=== PATIENT | male | born 1985 | race Caucasian/White ===

== ENCOUNTER → 2018-05-18 16:17 | Outpatient (CLI) | payer MEDICAID, SELFPAY ==
--- NOTE | 2018-05-18 17:02 | US_ITS ---
STUDY: SCROTUM ULTRASOUND REASON FOR EXAM: Male, 32 years old. Testicular pain TECHNIQUE: Ultrasound evaluation of the scrotum was performed with color Doppler and static manuel-scale imaging. COMPARISON: None. FINDINGS: RIGHT TESTICLE INTRATESTICULAR: There is a normal size of the right testicle. The right testicle measures 4.4 x 2.5 x 1.9 cm. There is a homogenous echotexture. There is normal arterial and normal venous vascularity. There is no demonstrated right testicular mass or cyst. EXTRATESTICULAR: The epididymis is normal in size. The epididymis head measures 0.9 x 0.8 cm. There is normal vascularity of the epididymis. There is a 2 mm epididymal cyst. There is a small hydrocele. There is no demonstrated varicocele. There is no demonstrated extratesticular mass or cyst. LEFT TESTICLE INTRATESTICULAR: There is a normal size of the left testicle. The left testicle measures 4.6 x 2.7 x 2.1 cm. There is a homogenous echotexture. There is normal arterial and normal venous vascularity. There is no demonstrated left testicular mass or cyst. EXTRATESTICULAR: The epididymis is normal in size. The epididymis head measures 1.1 x 0.7 cm. There is normal vascularity of the epididymis. There is no demonstrated epididymal cystic structure. There is a moderate hydrocele. There is mild varicocele. There is no demonstrated extratesticular mass or cyst. US/Testicular with Arterial Flow IMPRESSION: Normal bilateral testicles. Right epididymal cyst. Mild left varicocele. Small right hydrocele. Moderate left hydrocele. Electronically Signed: Andreas Reynoso DO at 23:31 EDT Tel [phone], Service support ,
== END ==
PROVIDERS: Family Provider Student in an Organized Health Care Education/Training Program; PCP Student in an Organized Health Care Education/Training Program; Visit Provider Student in an Organized Health Care Education/Training Program
DX: N50.819 Testicular pain, unspecified (principal)
CPT/HCPCS: 76870; 93976

== ENCOUNTER 2018-05-26 20:42 | Emergency (ER) | payer MEDICAID, SELFPAY ==
[2018-05-26 20:43] VITALS: BP 128/77; PULSE 85; RESP 14; TEMP 36.6; O2SAT 98; BMI 31.6
[2018-05-26 22:43] LABS: Mucous, Urine 0 SEEN /hpf (<or=2+); Red Blood Cells-Urine 0 SEEN /hpf (0-5); White Blood Cells 0 SEEN /hpf (0-5)
[2018-05-26 22:44] LABS: Color, Urine Yellow (Yellow); Glucose, Dipstick Normal (Normal); Ketone-Dipstick Negative (Negative); Leukocyte Esterase-Dipstick 25 /ul (Negative); Nitrite-Dipstick Negative (Negative); Occult Blood-Urine Negative /ul (Negative); Protein-Dipstick Negative (Negative); Urine Bilirubin Dipstick Negative (Negative); Urine Clarity Clear (Clear); Urine Urobilinogen 1 mg/dl (Normal); Urine pH 6.5 (5.0 - 8.0)
[2018-05-26] MEDS: HYDROcodone Bitartrate/Apap 5/325 Tablet PO (22:45)
[2018-05-26 22:57] LABS: Bacteria 1+ /hpf (None Seen); Squamous Epithelial Cells - UA 0-5 SEEN /hpf (0-5)
--- NOTE | 2018-05-26 23:30 | ED.DCSUM_ITS ---
- ER Visit Summary Date of Service: 05/26/18 Chief Complaint: Testicle pain History of Present Illness: The patient is a 32 M bilateral testicle pain which has been an ongoing issue for a couple months. It has been getting worse. He had a recent ultrasound which showed hydrocele. He was referred to urology, but he presents today because his pain has been increasing. Denies any discharge. Denies any dysuria or hematuria. Denies fevers. Denies trauma. Physical Examination: Afebrile and vital signs unremarkable. Alert and oriented. No acute distress. Abdomen soft and nontender. Diffuse testicular tenderness to palpation bilaterally with no swelling or masses noted. Test Results: Urinalysis unremarkable. Cultures pending. Emergency Department Course and Treatment: Patient received pain medication. While awaiting results. I reviewed his old imaging. He has hydroceles but no masses. There is nothing to suggest torsion. The patient has a bilateral orchitis. He was treated with Rocephin and doxycycline. He will follow-up with urology. Return for any new or worsening issues. Treatment Plan: Rocephin IM 1 time and doxycycline p.o. for 10 days Disposition: Discharged Impression: 1. Bilateral orchitis This note was generated with [employer] dictation software. It may contain incorrect words, spelling, and punctuation that were not noted in review of the chart prior to signing ED Disposition - Plan for ED Patient: Chief Complaint: Male Pain/Injury Referrals: Redd Baeza DO [Primary Care Provider] -
--- NOTE | 2018-05-26 23:30 | ED.DEP ---
ED Disposition - Plan for ED Patient: Chief Complaint: Male Pain/Injury Instructions: ED Orchitis Prescriptions: Oxycodone HCl/Acetaminophen [Percocet 5/325] 1 tab PO Q6H PRN PRN 3 Days #12 tab PRN Reason: Pain Doxycycline Monohydrate 100 mg PO BID #20 cap Additional Instructions: follow up with your urologist
[2018-05-26] MEDS: Doxycycline 100 MG CAPSULE PO (23:47)
[2018-05-27] MEDS: Ceftriaxone 500 MG Vial 250 MG IM (00:02)
[2018-05-27 00:07] VITALS: BP 128/75; PULSE 65; RESP 17; O2SAT 99
== END 2018-05-27 00:18 | disposition home or self-care (01) ==
PROVIDERS: Emergency Provider Emergency Medicine; Family Provider Student in an Organized Health Care Education/Training Program; PCP Student in an Organized Health Care Education/Training Program
DX: N45.2 Orchitis (principal); F32.9 Major depressive disorder, single episode, unspecified; F41.9 Anxiety disorder, unspecified; F17.210 Nicotine dependence, cigarettes, uncomplicated; Z79.899 Other long term (current) drug therapy
CPT/HCPCS: 81001; 87086; 87088; 96372; 99283

== ENCOUNTER 2018-09-21 17:18 | Emergency (ER) | payer MEDICAID, SELFPAY ==
[2018-09-21 17:20] VITALS: BP 137/83; PULSE 82; RESP 17; TEMP 37; O2SAT 98; BMI 27.4
--- NOTE | 2018-09-21 17:49 | ED.RN ---
Pt verbalizes SI with auditory hallucinations. Suicide precautions initiated at 1720. sitter at bedside.
--- NOTE | 2018-09-21 17:50 | CM.ED ---
SOCIAL WORK NOTE CASE DISCUSSED WITH DR. ODEN. [facility] TO EVALUATE. PT WITH AUDITORY HALLUCINATIONS AND SUICIDAL IDEATION. RACHAEL SOL, SOFTWARE QA MANAGER, LINE LOCATOR.
--- NOTE | 2018-09-21 17:53 | CT_ITS ---
STUDY: CT BRAIN WITHOUT CONTRAST REASON FOR EXAM: Male, 33 years old. Altered mental status RADIATION DOSAGE (If Supplied By Facility): CTDIvol = ( 44.99 ) mGy, DLP = ( 779.24 ) mGycm TECHNIQUE: Transaxial CT imaging of the brain was performed without administration of intravenous contrast material. Individualized dose optimization techniques were used for this CT. COMPARISON: March 17, 2017 FINDINGS: Normal soft tissue structures. Normal calvarium. Normal size ventricles and extra-axial spaces for the patient's age. Normal white matter tracts of the cerebral hemispheres. Normal basal ganglia and thalami. Normal brainstem. Normal cerebellum. There is no intracranial hemorrhage. There are no findings of an acute ischemic infarction. Normal visualized paranasal sinuses. CT/Brain/Head without Contrast IMPRESSION: Normal unenhanced CT scan of the brain. Electronically Signed: Andreas Reynoso DO at 18:31 EST Tel [phone], Service support ,
--- NOTE | 2018-09-21 18:13 | ED.VISSUMM ---
- ER Visit Summary Date of Service: 09/21/18 Chief Complaint: Hallucinations, suicidal ideation History of Present Illness: The patient is a 33 M presenting with suicidal ideation and hallucinations. He states he went to his primary care physician today to have his medications refilled. He states when he was at the office he started telling the provider everything that has been going on in his life. He states that he has been hearing voices which are telling him to hurt himself. He states that they swear at him. He states sometimes he will wake up in the middle the night and start banging his head on the floor. He states he is afraid to be alone. He has a history of past suicide attempt. He does not have a current suicide plan. He admits to marijuana use and occasional alcohol use. Physical Examination: Vitals are stable. Patient is afebrile. Alert no acute distress. HEENT exam is unremarkable. Neck is supple. Lungs are clear and equal bilaterally. Heart is regular rate and rhythm. Abdomen is soft nontender nondistended. Extremities are unremarkable. Skin is warm and dry. No focal neurologic deficit. Poor eye contact. Remainder of exam is unremarkable. Emergency Department Course and Treatment: CBC shows white count 12.0. Chemistries unremarkable. Tox positive for THC. Alcohol negative. CT head shows no acute process. Will discuss with the counseling center for evaluation. Disposition: Per counseling center Impression: Auditory hallucinations, suicidal ideation This note was generated with [employer] dictation software. It may contain incorrect words, spelling, and punctuation that were not noted in review of the chart prior to signing ED Disposition - Plan for ED Patient: Chief Complaint: Suicidal Referrals: Redd Baeza DO [Primary Care Provider] -
[2018-09-21 18:19] VITALS: RESP 16
[2018-09-21 18:25] LABS: Absolute Lymphocyte Count 3.65 X10^3/ul (0.83-4.51); Absolute Neutrophil Count 7.1 X10^3/uL (2.0-7.7); Basophil# 0.05 X10^3/uL; Basophil% 0.4 % (0-1); Eosinophils% 3.3 % (0-5); Hematocrit 49.8 % (40-54); Hemoglobin 16.6 g/dl (13.0-16.5); Lymphocyte # 3.65 X10^3/ul (4.0); Lymphocyte % 30.5 % (19-41); Mean Corp Hgb Conc 33.3 g/gl (32-36); Mean Corpuscular Hgb 30.6 pg (27.0-32.0); Mean Corpuscular Volume 91.7 fL (80-94); Mean Platelet Vol. 10.8 fl (6.2-12.0); Monocyte# 0.76 X10^3/uL; Monocyte% 6.4 % (0-10); Neutrophil # 7.08 X10^3/uL (2.7-7.7); Neutrophil % 59.2 % (47-70); Platelet Count 252 K/mm3 (150-450); RBC Distribution Width CV 13.2 % (11.6-14.6); RBC Distribution Width SD 43.7 fl (35.1-43.9); Red Blood Count 5.43 M/mm3 (4.6-6.2)
[2018-09-21 18:26] LABS: POSITIVE COUNT NO; POSITIVE DIFFERENTIAL NO; POSITIVE MORPHOLOGY NO
[2018-09-21 18:57] LABS: Anion Gap 11 (5-15); BUN 8 mg/dL (7-18); BUN/Creat Ratio 8.9 RATIO (10-20); Calcium,Total 8.9 mg/dL (8.5-10.1); Chloride 103 mmol/L (98-107); EST Glomerular Filtration Rate 103 mL/min (>60); Est Glom Filt Rate - Afr Amer 125 mL/min (>60); Estimated Creatinine Clearance 124.34 ml/min; Glucose 81 mg/dL (74-106); Potassium 3.7 mmol/L (3.5-5.1); Sodium Level 140 mmol/L (136-145)
[2018-09-21 18:59] LABS: Amphetamine Urine VISTA NEGATIVE (<1000 ng/mL); Barbiturate Urine VISTA NEGATIVE (< 200 ng/mL); Benzodiazepine Urine VISTA NEGATIVE (< 200 ng/mL); Cocaine Urine VISTA NEGATIVE (< 300 ng/mL); Ecstacy Urine VISTA NEGATIVE (< 500 ng/mL); Methadone Urine VISTA NEGATIVE (< 300 ng/mL); PCP Urine VISTA NEGATIVE (< 25 ng/mL); THC Urine VISTA POSITIVE (< 50 ng/mL); Vista UDS pH Range 5
[2018-09-21 19:00] VITALS: PULSE 74; RESP 16; O2SAT 99
[2018-09-21 19:03] LABS: Alcohol, Blood (Medical)-Serum < 3.0 mg/dL
--- NOTE | 2018-09-21 19:18 | ED.RN ---
CALLED CRISIS TO SEE THIS PT, SEVERIANO IS IN THE AREA
[2018-09-21] MEDS: Ondansetron ODT 4 MG Tablet PO (20:21)
--- NOTE | 2018-09-21 20:55 | ED.RN ---
CALLED [facility] TO CHECK A STATUS OF ARRIVAL, NO ETA GIVEN, HOWEVER WE ARE STILL ON THE LIST.
[2018-09-21 21:00] VITALS: BP 126/71; PULSE 66; RESP 14; O2SAT 99
--- NOTE | 2018-09-21 21:16 | ED.RN ---
KAILYN WILSON CALLED IN, HE HAS A FEW THINGS TO DO THEN WILL BE IN.
[2018-09-21 22:00] VITALS: RESP 18
--- NOTE | 2018-09-21 22:49 | ED.RN ---
KAILYN WILSON CALLED, A COMMUNICATION PROBLEM IN THEIR OFFICE CAUSED HIM TO GO TO ANOTHER FACILITY EVEN THOUGH THIS PT WAS FIRST TO BE SEEN, HE IS UNAWARE OF WHEN HE WILL GET HERE TO SEE THIS PT.
[2018-09-21 23:00] VITALS: PULSE 66; RESP 18; O2SAT 99
[2018-09-22] VITALS (8 sets, daily range): BP systolic 114–122; BP diastolic 73–79; PULSE 61–85; RESP 14–16; O2SAT 97–98
--- NOTE | 2018-09-22 07:07 | NURSING ---
CALLED [facility]. ETA IS [phone]
== END 2018-09-22 08:37 ==
LOC: ED 17:55
PROVIDERS: Emergency Provider Emergency Medicine; Family Provider Student in an Organized Health Care Education/Training Program; PCP Student in an Organized Health Care Education/Training Program
DX: R45.851 Suicidal ideations (principal); R44.0 Auditory hallucinations; F41.9 Anxiety disorder, unspecified; F32.9 Major depressive disorder, single episode, unspecified; Z79.899 Other long term (current) drug therapy; Z72.0 Tobacco use
CPT/HCPCS: 70450; 80048; 80307; 80320; 85025; 99285; G0480

== ENCOUNTER 2018-12-19 17:45 | Emergency (ER) | payer MEDICAID, SELFPAY ==
[2018-12-19 17:47] VITALS: BP 133/97; PULSE 68; RESP 17; TEMP 36.6; O2SAT 98; BMI 26.2
[2018-12-19 17:51] VITALS: TEMP 36.6
[2018-12-19] MEDS: HYDROcodone Bitartrate/Apap 5/325 Tablet PO (19:49)
[2018-12-19] MEDS: Clindamycin HCl 150 MG Capsule 300 MG PO (19:49)
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
--- NOTE | 2018-12-19 20:20 | ED.RN ---
DISCHARGE INSTRUCTIONS GIVEN TO AND REVIEWED WITH PATIENT, PATIENT DENIES QUESTIONS OR CONCERNS AND VOICES UNDERSTANDING OF DISCHARGE INSTRUCTIONS. PT AMBULATES OUT OF ROOM WITHOUT ISSUE.
== END 2018-12-19 20:21 | disposition home or self-care (01) ==
PROVIDERS: Emergency Provider Emergency Medicine; Family Provider Student in an Organized Health Care Education/Training Program; PCP Student in an Organized Health Care Education/Training Program
DX: S00.431A Contusion of right ear, initial encounter (principal); Z87.891 Personal history of nicotine dependence; W22.01XA Walked into wall, initial encounter; Y93.89 Activity, other specified; Y92.89 Other specified places as the place of occurrence of the external cause; Y99.8 Other external cause status
CPT/HCPCS: 69000; 99283

== ENCOUNTER 2018-12-25 16:53 | Emergency (ER) | payer MEDICAID, SELFPAY ==
[2018-12-25 16:54] VITALS: BP 130/94; PULSE 114; RESP 19; TEMP 36.4; O2SAT 97; BMI 27.4
--- NOTE | 2018-12-25 17:34 | ED.VISSUMM ---
- ER Visit Summary Date of Service: 12/25/18 Chief Complaint: Right ear pain History of Present Illness: The patient is a 33 M with right ear pain for about 3 weeks. He was seen here earlier in the week and had drainage but it reaccumulated. As I read the note, an 18-gauge was used to aspirate and the ear went back to normal, patient did take the pressure dressing off rather soon, he came in today because he got worse. Physical Examination: Auricle is quite swollen, no pallor. No signs of cellulitis. Emergency Department Course and Treatment: 1% lidocaine was used, I used a 15 blade, after which I made an ellipse and left the wound open. I drained quite a bit of clots. The ear regressed back to normal. Patient will be placed on antibiotics Disposition: Discharge stable condition Impression: Auricle hematoma This note was generated with [employer] dictation software. It may contain incorrect words, spelling, and punctuation that were not noted in review of the chart prior to signing ED Disposition - Plan for ED Patient: Disposition: Home or Assisted Living Instructions: ED Hematoma Prescriptions: Hydrocodone Bitart/Apap 5-325 [[place] 5MG-325MG] 1 tab PO Q4H PRN PRN 2 Days #10 tab PRN Reason: Pain Clindamycin [Cleocin] 150 mg PO TID #15 cap Referrals: Redd Baeza DO [Primary Care Provider] - 2 Days
--- NOTE | 2018-12-25 17:39 | ED.DCSUM_ITS ---
- ER Visit Summary Date of Service: 12/25/18 Chief Complaint: Right ear pain History of Present Illness: The patient is a 33 M with right ear pain for about 3 weeks. He was seen here earlier in the week and had drainage but it reaccumulated. As I read the note, an 18-gauge was used to aspirate and the ear went back to normal, patient did take the pressure dressing off rather soon, he came in today because he got worse. Physical Examination: Auricle is quite swollen, no pallor. No signs of cellulitis. Emergency Department Course and Treatment: 1% lidocaine was used, I used a 15 blade, after which I made an ellipse and left the wound open. I drained quite a bit of clots. The ear regressed back to normal. Patient will be placed on antibiotics Disposition: Discharge stable condition Impression: Auricle hematoma This note was generated with [employer] dictation software. It may contain incorrect words, spelling, and punctuation that were not noted in review of the chart prior to signing ED Disposition - Plan for ED Patient: Disposition: Home or Assisted Living Instructions: ED Hematoma Prescriptions: Hydrocodone Bitart/Apap 5-325 [[place] 5MG-325MG] 1 tab PO Q4H PRN PRN 2 Days #10 tab PRN Reason: Pain Clindamycin [Cleocin] 150 mg PO TID #15 cap Referrals: Redd Baeza DO [Primary Care Provider] - 2 Days
[2018-12-25] MEDS: HYDROcodone Bitartrate/Apap 5/325 Tablet PO (17:52)
[2018-12-25] MEDS: Clindamycin HCl 150 MG Capsule 300 MG PO (17:52)
[2018-12-25 17:53] VITALS: PULSE 105; RESP 17; O2SAT 95
== END 2018-12-25 17:55 | disposition home or self-care (01) ==
PROVIDERS: Emergency Provider Emergency Medicine; Family Provider Student in an Organized Health Care Education/Training Program; PCP Student in an Organized Health Care Education/Training Program
DX: S00.431A Contusion of right ear, initial encounter (principal); F32.9 Major depressive disorder, single episode, unspecified; Z79.899 Other long term (current) drug therapy; X58.XXXA Exposure to other specified factors, initial encounter; Y93.9 Activity, unspecified; Y92.89 Other specified places as the place of occurrence of the external cause; Y99.8 Other external cause status
CPT/HCPCS: 69000; 99283

== ENCOUNTER 2018-12-31 10:16 | Emergency (ER) | payer MEDICAID, SELFPAY ==
[2018-12-31 10:19] VITALS: BP 123/80; PULSE 64; RESP 14; TEMP 36.4; O2SAT 98; BMI 25.9
--- NOTE | 2018-12-31 10:55 | ED.VIS.GEN ---
History of Present Illness Chief Complaint: Anxiety Detail of Chief Complaint: Multiple issues read narrative Informant: Patient Onset: Weeks - 1.5 Context: - - Uncertain Timing: Continuous, Waxes and wanes Quality: Something is wrong, no appetite, no energy Location: Residents Current Severity: Mild Worsened by: Patient reports she does not feel safe in his apartment with his roommate Relieved by: Nothing Associated Symptoms: Symptoms of depression without suicidal ideation Narrative: Patient is a 33-year-old male who was seen recently by me for a traumatic hematomas right ear. The hematoma was aspirated. Patient had a appropriate pressure dressing and refer to ENT. He states he never called and never followed up. He states he has been lying on his sulfa. Has the financial means for food however he has no desire to get food or make food for himself. He now states he does not feel safe with his roommate. He is unable to be more specific. He denied suicidal thoughts. He denies homicidal thoughts. He repeated he is not sure what is wrong and not sure what to do. Past Medical History - Allergies and Home Meds Allergies/Adverse Reactions: Allergies No Known Allergies Allergy (Verified 12/25/18 16:56) Primary Care Physician: Redd Baeza DO [Primary Care Provider] - Prior records reviewed: Yes Surgical History: no surgical history Lives: Roommate Smoking Status: Never smoker Alcohol: None Review of Systems General: Reports: Malaise Eyes: Denies: Visual changes - bilaterally, Blurred Vision - bilaterally, Diplopia ENT: Denies: Rhinorrhea, Sore throat Cardiovascular: Denies: Chest pain, Palpitations Respiratory: Denies: Dyspnea, Cough, Dyspnea on exertion Gastrointestinal: Denies: Abdominal pain, Nausea, Vomiting, Diarrhea, Melena, Hematochezia Genitourinary: Denies: Dysuria, Hematuria, Frequency Musculoskeletal: Denies: Myalgias, Arthralgias, Neck pain, Back pain, Extremity Pain Skin: Denies: Rash, Wounds Neurological: Denies: Headache, Weakness, Numbness Psych: Reports: Depression, Anxiety. Denies: Suicidal thoughts, Suicidal ideations Hematologic: Denies: Easy bruising, Easy bleeding Allergy: Denies: Uticaria, Swelling of the mouth Physical Exam Vital Signs/Narrative: Vital Signs Temp Pulse Resp BP Pulse Ox 12/31/18 10:19 97.6 F L 64 14 123/80 H 98 Inital Vital Signs reviewed: Yes General: Well nourished, Well developed, No Acute Distress Head: Normocephalic, Atraumatic, - Eyes: Perrl, EOMI. Negative for: Pale conjunctiva, Scleral icterus ENT: Moist mucous membranes, No rhinorrhea, - - There is a large hematoma right ear. There is no evidence of infection. Neck: Supple, Nontender, No lymphadenopathy, No JVD, - Cardiovascular: Regular rate, Regular rhythm, No murmurs, Normal S1, Normal S2 Respiratory: No distress, CTA bilaterally, Chest nontender Abdomen: Soft, Nontender, Nondistended, Normal bowel sounds, No masses Back: Nontender, Normal Inspection. Negative for: CVA tenderness Extremities: Nontender, No edema Skin: Normal color, No rash Neurological: Alert, Oriented x3, Cranial nerves II-XII grossly intact, Normal Strength, Normal Sensation Psychological: Depressed - Poverty of speech, slow psychomotor skills, problems with sleep. Diagnostic/Tx/Re-eval Laboratory Results 12/31/18 12/31/18 12/31/18 11:30 11:30 11:30 WBC 7.9 RBC 5.23 Hgb 15.9 Hct 47.6 MCV 91.0 MCH 30.4 MCHC 33.4 RDW 13.3 RDW Differential 43.9 Plt Count 257 MPV 11.0 Immature Gran % (Auto) 0.100 Neut % (Auto) 59.9 Lymph % (Auto) 26.4 [place] % (Auto) 6.9 Eos % (Auto) 6.2 H Baso % (Auto) 0.5 Absolute Neuts (auto) 4.7 Absolute Lymphs (auto) 2.07 Total Counted Not Reportable Sodium 142 Potassium 4.7 Chloride 107 Carbon Dioxide 31.0 Anion Gap 4 L BUN 12 Creatinine 0.94 Estim Creat Clear Calc 119.05 Est GFR (MDRD) Af Amer 119 Est GFR (MDRD) Non-Af 98 BUN/Creatinine Ratio 12.8 Glucose 84 Calcium 9.0 Total Bilirubin 0.60 AST 17 ALT 37 Alkaline Phosphatase 131 H Total Protein 7.5 Albumin 3.9 Globulin 3.6 Albumin/Globulin Ratio 1.1 Urine Opiates Screen Urine Methadone Screen Ur Barbiturates Screen Ur Phencyclidine Scrn Ur Amphetamines Screen U Methamphetamin-MDMA U Benzodiazepines Scrn Urine Cocaine Screen U Cannabinoids Screen Ur Drug Screen Comment Ethyl Alcohol 9.0 12/31/18 13:10 WBC RBC Hgb Hct MCV MCH MCHC RDW RDW Differential Plt Count MPV Immature Gran % (Auto) Neut % (Auto) Lymph % (Auto) [place] % (Auto) Eos % (Auto) Baso % (Auto) Absolute Neuts (auto) Absolute Lymphs (auto) Total Counted Sodium Potassium Chloride Carbon Dioxide Anion Gap BUN Creatinine Estim Creat Clear Calc Est GFR (MDRD) Af Amer Est GFR (MDRD) Non-Af BUN/Creatinine Ratio Glucose Calcium Total Bilirubin AST ALT Alkaline Phosphatase Total Protein Albumin Globulin Albumin/Globulin Ratio Urine Opiates Screen NEGATIVE Urine Methadone Screen NEGATIVE Ur Barbiturates Screen NEGATIVE Ur Phencyclidine Scrn NEGATIVE Ur Amphetamines Screen NEGATIVE U Methamphetamin-MDMA NEGATIVE U Benzodiazepines Scrn NEGATIVE Urine Cocaine Screen NEGATIVE U Cannabinoids Screen POSITIVE H Ur Drug Screen Comment Ethyl Alcohol - Medical Decision Making Case management was consulted. Because he reports little to no p.o. intake in 10 days and clinically appears dehydrated will obtain baseline blood work to assess renal function, electrolytes, H&H. Quita from case management spoke to person and for me she is concerned that he is having acute psychosis. Agree there is something wrong. This is a marked change from when I saw him and drained his right ear hematoma. We will perform appropriate test for psychiatric clearance. Will notify mental health they will need to see patient. Laboratory results remarkable for cannabis. License psychotherapist social worker from counseling center inform me that he has been hearing voices and voices have been telling him to kill himself. He also has paranoid ideation. He was much more elaborative with her the knee. He states he does not believe he can eat or drink anything. He reports he has not showered because he is afraid of the water. He is also afraid of his roommate. ED Disposition - Plan for ED Patient: Disposition: Acute Care Hospital - Other Diagnosis: Severe auditory hallucinations, Paranoid ideation, Failure to thrive, Hematoma of right ear Referrals: Redd Baeza DO [Primary Care Provider] -
--- NOTE | 2018-12-31 10:59 | ED.DCSUM_ITS ---
History of Present Illness Chief Complaint: Anxiety Detail of Chief Complaint: Multiple issues read narrative Informant: Patient Onset: Weeks - 1.5 Context: - - Uncertain Timing: Continuous, Waxes and wanes Quality: Something is wrong, no appetite, no energy Location: Residents Current Severity: Mild Worsened by: Patient reports she does not feel safe in his apartment with his roommate Relieved by: Nothing Associated Symptoms: Symptoms of depression without suicidal ideation Narrative: Patient is a 33-year-old male who was seen recently by me for a traumatic hematomas right ear. The hematoma was aspirated. Patient had a appropriate pre ssure dressing and refer to ENT. He states he never called and never followed up. He states he has been lying on his sulfa. Has the financial means for food however he has no desire to get food or make food for himself. He now states he does not feel safe with his roommate. He is unable to be more specific. He denied suicidal thoughts. He denies homicidal thoughts. He repeated he is not sure what is wrong and not sure what to do. Past Medical History - Allergies and Home Meds Allergies/Adverse Reactions: Allergies No Known Allergies Allergy (Verified 12/25/18 16:56) Primary Care Physician: Redd Baeza DO [Primary Care Provider] - Prior records reviewed: Yes Surgical History: no surgical history Lives: Roommate Smoking Status: Never smoker Alcohol: None Review of Systems General: Reports: Malaise Eyes: Denies: Visual changes - bilaterally, Blurred Vision - bilaterally, Di plopia ENT: Denies: Rhinorrhea, Sore throat Cardiovascular: Denies: Chest pain, Palpitations Respiratory: Denies: Dyspnea, Cough, Dyspnea on exertion Gastrointestinal: Denies: Abdominal pain, Nausea, Vomiting, Diarrhea, Melena, Hematochezia Genitourinary: Denies: Dysuria, Hematuria, Frequency Musculoskeletal: Denies: Myalgias, Arthralgias, Neck pain, Back pain, Extremity Pain Skin: Denies: Rash, Wounds Neurological: Denies: Headache, Weakness, Numbness Psych: Reports: Depression, Anxiety. Denies: Suicidal thoughts, Suicidal ideations Hematologic: Denies: Easy bruising, Easy bleeding Allergy: Denies: Uticaria, Swelling of the mouth Physical Exam Vital Signs/Narrative: Vital Signs Temp Pulse Resp BP Pulse Ox 12/31/18 10:19 97.6 F L 64 14 123/80 H 98 Inital Vital Signs reviewed: Yes General: Well nourished, Well developed, No Acute Distress Head: Normocephalic, Atraumatic, - Eyes: Perrl, EOMI. Negative for: Pale conjunctiva, Scleral icterus ENT: Moist mucous membranes, No rhinorrhea, - - There is a large hematoma right ear. There is no evidence of infection. Neck: Supple, Nontender, No lymphadenopathy, No JVD, - Cardiovascular: Regular rate, Regular rhythm, No murmurs, Normal S1, Normal S2 Respiratory: No distress, CTA bilaterally, Chest nontender Abdomen: Soft, Nontender, Nondistended, Normal bowel sounds, No masses Back: Nontender, Normal Inspection. Negative for: CVA tenderness Extremities: Nontender, No edema Skin: Normal color, No rash Neurological: Alert, Oriented x3, Cranial nerves II-XII grossly intact, Normal Strength, Normal Sensation Psychological: Depressed - Poverty of speech, slow psychomotor skills, problems with sleep. Diagnostic/Tx/Re-eval Laboratory Results 12/31/18 12/31/18 12/31/18 11:30 11:30 11:30 WBC 7.9 RBC 5.23 Hgb 15.9 Hct 47.6 MCV 91.0 MCH 30.4 MCHC 33.4 RDW 13.3 RDW Differential 43.9 Plt Count 257 MPV 11.0 Immature Gran % (Auto) 0.100 Neut % (Auto) 59.9 Lymph % (Auto) 26.4 [place] % (Auto) 6.9 Eos % (Auto) 6.2 H Baso % (Auto) 0.5 Absolute Neuts (auto) 4.7 Absolute Lymphs (auto) 2.07 Total Counted Not Reportable Sodium 142 Potassium 4.7 Chloride 107 Carbon Dioxide 31.0 Anion Gap 4 L BUN 12 Creatinine 0.94 Estim Creat Clear Calc 119.05 Est GFR (MDRD) Af Amer 119 Est GFR (MDRD) Non-Af 98 BUN/Creatinine Ratio 12.8 Glucose 84 Calcium 9.0 Total Bilirubin 0.60 AST 17 ALT 37 Alkaline Phosphatase 131 H Total Protein 7.5 Albumin 3.9 Globulin 3.6 Albumin/Globulin Ratio 1.1 Urine Opiates Screen Urine Methadone Screen Ur Barbiturates Screen Ur Phencyclidine Scrn Ur Amphetamines Screen U Methamphetamin-MDMA U Benzodiazepines Scrn Urine Cocaine Screen U Cannabinoids Screen Ur Drug Screen Comment Ethyl Alcohol 9.0 12/31/18 13:10 WBC RBC Hgb Hct MCV MCH MCHC RDW RDW Differential Plt Count MPV Immature Gran % (Auto) Neut % (Auto) Lymph % (Auto) [place] % (Auto) Eos % (Auto) Baso % (Auto) Absolute Neuts (auto) Absolute Lymphs (auto) Total Counted Sodium Potassium Chloride Carbon Dioxide Anion Gap BUN Creatinine Estim Creat Clear Calc Est GFR (MDRD) Af Amer Est GFR (MDRD) Non-Af BUN/Creatinine Ratio Glucose Calcium Total Bilirubin AST ALT Alkaline Phosphatase Total Protein Albumin Globulin Albumin/Globulin Ratio Urine Opiates Screen NEGATIVE Urine Methadone Screen NEGATIVE Ur Barbiturates Screen NEGATIVE Ur Phencyclidine Scrn NEGATIVE Ur Amphetamines Screen NEGATIVE U Methamphetamin-MDMA NEGATIVE U Benzodiazepines Scrn NEGATIVE Urine Cocaine Screen NEGATIVE U Cannabinoids Screen POSITIVE H Ur Drug Screen Comment Ethyl Alcohol - Medical Decision Making Case management was consulted. Because he reports little to no p.o. intake in 10 days and clinically appears dehydrated will obtain baseline blood work to assess renal function, electrolytes, H&H. Quita from case management spoke to person and for me she is concerned that he is having acute psychosis. Agree there is something wrong. This is a marked change from when I saw him and drained his right ear hematoma. We will perform appropriate test for psychiatric clearance. Will notify mental health they will need to see patient. Laboratory results remarkable for cannabis. License social worker masters from counseling center inform me that he has been hearing voices and voices have been telling him to kill himself. He also has paranoid ideation. He was much more elaborative with her the knee. He states he does not believe he can eat or drink anything. He reports he has not showered becaus e he is afraid of the water. He is also afraid of his roommate. ED Disposition - Plan for ED Patient: Disposition: Acute Care Hospital - Other Diagnosis: Severe auditory hallucinations, Paranoid ideation, Failure to thrive, Hematoma of right ear Referrals: Redd Baeza DO [Primary Care Provider] -
--- NOTE | 2018-12-31 11:15 | CM.ED ---
Social Work Assessment Referral Date: 12/31/18 Date of Assessment: 12/31/18 Informant: DR. KERR Reason for Consult: MENTAL HEALTH Information obtained from: CHART, DR. KERR AND PATIENT Living Arrangements: PATIENT LIVES IN AN APARTMENT WITH ROOMMATEMEHREEN Employment/Financial: DISABLED, PATIENT REPORTS RECEIVES SSI. Supports: PATIENT REPORTS HIS SISTER IS A GOOD SUPPORT. Social/Family Stressors: PATIENT REPORTS HAS NOT SLEPT IN 10 DAYS. PATIENT REPORTS IS AFRAID TO TAKE HIS MEDICATIONS, PATIENT STATES, I FEEL LIKE I'M GOING TO . Mental Health History: PATIENT ADMITS TO HX OF ANXIETY AND DEPRESSION. PATIENT DENIES ANY SUICIDAL OR HOMICIDAL IDEATIONS. Substance Abuse History: PATIENT ADMITS TO MARIJUANA USE IN THE LAST 30 DAYS. Interventions: SOCIAL SERVICE ASSESSMENT Assessment: PATIENT IS A 33 Y/O MALE WHO PRESENTS TO THE ED BY [facility] FOR ANXIETY. PATIENT TEARFUL AND REPORTS FEELINGS OF BEING SCARED. PATIENT STATES HAS NOT SLEPT IN 10 DAYS AND IS AFRAID HE IS GOING TO . PATIENT ADMITS TO MARIJUANA USE IN THE LAST 30 DAYS. PATIENT STATES IS PRESCRIBED KLONOPIN BY PRIMARY CARE DOCTOR, DR. RAINES. PATIENT STATES TOOK MEDICATION YESTERDAY, BUT IS AFRAID TO TAKE MEDICATION. PATIENT REPORTS HAS NOT BEEN ABLE TO EAT OR DRINK. REPORTS HAS FINANCIAL MEANS TO OBTAIN FOOD AND DRINK, BUT JUST HASN'T WANTED TO DO SO. CASE DISCUSSED WITH DR. KERR. PATIENT TO BE EVALUATED BY [facility] ONCE MEDICALLY CLEARED. PLAN: CRISIS EVALUATION
--- NOTE | 2018-12-31 11:25 | CM.ED ---
SOCIAL WORK CULLEN FROM [facility] HERE. DISCUSSED THIS WORKER'S ASSESSMENT. CULLEN TO ASSESS PATIENT. RACHAEL SOL, BELT SANDER, BELLSTAND ATTENDANT.
[2018-12-31] MEDS: 0.9% Normal Saline 1,000 ML 1000 ML IV (11:36)
--- NOTE | 2018-12-31 11:39 | NURSING ---
[facility] AWARE OF PATIENT
[2018-12-31 11:46] LABS: Absolute Lymphocyte Count 2.07 X10^3/ul (0.83-4.51); Absolute Neutrophil Count 4.7 X10^3/uL (2.0-7.7); Basophil# 0.04 X10^3/uL; Basophil% 0.5 % (0-1); Eosinophil# 0.49 X10^3/uL; Eosinophils% 6.2 % (0-5); Hematocrit 47.6 % (40-54); Hemoglobin 15.9 g/dl (13.0-16.5); Lymphocyte # 2.07 X10^3/ul (4.0); Lymphocyte % 26.4 % (19-41); Mean Corp Hgb Conc 33.4 g/gl (32-36); Mean Corpuscular Hgb 30.4 pg (27.0-32.0); Monocyte# 0.54 X10^3/uL; Monocyte% 6.9 % (0-10); Neutrophil % 59.9 % (47-70); POSITIVE COUNT NO; POSITIVE DIFFERENTIAL NO; POSITIVE MORPHOLOGY NO; Platelet Count 257 K/mm3 (150-450); RBC Distribution Width CV 13.3 % (11.6-14.6); RBC Distribution Width SD 43.9 fl (35.1-43.9); Red Blood Count 5.23 M/mm3 (4.6-6.2); White Blood Count 7.9 K/mm3 (4.4-11.0)
[2018-12-31 12:06] LABS: ALB/GLOB Ratio 1.1 RATIO (0.9-2.4); AST(SGOT) 17 U/L (15-37); Alanine Aminotransfer ALT/SGPT 37 U/L (16-61); Albumin, Serum 3.9 g/dL (3.2-5.0); Alkaline Phosphatase 131 U/L (45-117); Anion Gap 4 (5-15); BUN 12 mg/dL (7-18); BUN/Creat Ratio 12.8 RATIO (10-20); Chloride 107 mmol/L (98-107); Creatinine, Serum 0.94 mg/dL (0.70-1.30); EST Glomerular Filtration Rate 98 mL/min (>60); Est Glom Filt Rate - Afr Amer 119 mL/min (>60); Estimated Creatinine Clearance 119.05 ml/min; Globulin 3.6 g/dL (2.2-4.2); Glucose 84 mg/dL (74-106); Potassium 4.7 mmol/L (3.5-5.1); Protein, Total 7.5 g/dL (6.4-8.2); Sodium Level 142 mmol/L (136-145)
--- NOTE | 2018-12-31 12:14 | ED.RN ---
PT STILL UNABLE TO PROVIDE URINE SAMPLE. MD AWARE. NO NEW ORDERS GIVEN.
--- NOTE | 2018-12-31 12:15 | ED.RN ---
WANTS PT STRAIGHT CATH.
[2018-12-31 12:18] VITALS: BP 108/80; PULSE 59; O2SAT 96
--- NOTE | 2018-12-31 12:29 | ED.RN ---
PT IS REFUSING TO BE PINKED SLIPPED. AWARE.
--- NOTE | 2018-12-31 13:12 | ED.RN ---
[facility] called requesting labs and urine be faxed to them. [facility] aware we do not have urine results yet, [facility] requests what results we have and states they will wait for the rest. Labs faxed at this time to [phone].
[2018-12-31 14:13] LABS: Amphetamine Urine VISTA NEGATIVE (<1000 ng/mL); Barbiturate Urine VISTA NEGATIVE (< 200 ng/mL); Benzodiazepine Urine VISTA NEGATIVE (< 200 ng/mL); Cocaine Urine VISTA NEGATIVE (< 300 ng/mL); Ecstacy Urine VISTA NEGATIVE (< 500 ng/mL); Methadone Urine VISTA NEGATIVE (< 300 ng/mL); PCP Urine VISTA NEGATIVE (< 25 ng/mL); THC Urine VISTA POSITIVE (< 50 ng/mL); Vista UDS pH Range 6
--- NOTE | 2018-12-31 14:55 | ED.RN ---
PT ASKED IF RT EAR WAS TOO BE DRAINED. THIS RN ASKED DR KERR. DR KERR STATES NO I AM NOT TOUCHING THAT, HE DID NOT FOLLOW UP WITH THE ENT
[2018-12-31 15:07] VITALS: BP 103/67; PULSE 58; RESP 16; O2SAT 98
--- NOTE | 2018-12-31 15:13 | ED.RN ---
PT INFORMED THAT DR KERR IS NOT PLANNING TO DRAIN HIS EAR. PT REMINDED THAT HE WAS SUPPOSED TO FOLLOW UP WITH ENT REGARDING HIS EAR.
--- NOTE | 2018-12-31 15:53 | NURSING ---
CALLED [facility], TALKED TO RENÉ RAPP. ASKED FOR AN UPDATE. SHE WILL LET SEVERIANO KNOW
--- NOTE | 2018-12-31 16:46 | NURSING ---
FAXED LAB WORK TO [facility]
[2018-12-31 17:02] VITALS: BP 124/78; PULSE 57; RESP 14; O2SAT 97
[2018-12-31] MEDS: Acetaminophen 325 MG Tablet 650 MG PO (17:07)
--- NOTE | 2018-12-31 17:39 | NURSING ---
ACCEPTED AT [facility]
--- NOTE | 2018-12-31 18:59 | NURSING ---
[facility] CANNOT TRANSPORT TO [facility]
[2018-12-31 19:46] VITALS: BP 112/75; PULSE 87; RESP 16; O2SAT 98
[2018-12-31 20:05] VITALS: BP 126/78; PULSE 84; TEMP -8.8; TEMP 16; O2SAT 98
== END 2018-12-31 20:07 | disposition short-term general hospital (02) ==
PROVIDERS: Emergency Provider Emergency Medicine; Family Provider Student in an Organized Health Care Education/Training Program; PCP Student in an Organized Health Care Education/Training Program
DX: R44.0 Auditory hallucinations (principal); F60.0 Paranoid personality disorder; R62.7 Adult failure to thrive; S00.431D Contusion of right ear, subsequent encounter; X58.XXXD Exposure to other specified factors, subsequent encounter
CPT/HCPCS: 80053; 80307; 80320; 85025; 96360; 96361; 99285; J7030; A4216; G0480

== ENCOUNTER 2019-01-23 15:48 | Emergency (ER) | payer MEDICAID, SELFPAY ==
[2019-01-23 15:50] VITALS: BP 151/106; PULSE 99; RESP 18; TEMP 36.6; O2SAT 96; BMI 25.1
--- NOTE | 2019-01-23 16:06 | ED.VIS.GEN ---
History of Present Illness Chief Complaint: Anxiety Informant: Patient Onset: Days Context: Sudden Onset Timing: Intermittent Quality: Anxious and arms twitching Location: Patient is concerned if he unwrapped his arms he will hit his ear. Current Severity: Mild Maximum Severity: Moderate Worsened by: Nothing Relieved by: Nothing Associated Symptoms: Anxiousness Narrative: Patient is a 33-year-old male who was recently transferred to psychiatric unit. He underwent surgery right ear secondary to hematoma. He presents because he feels anxious and if he unwrapped his arms he will hit his ear. He is concerned that he may need additional surgery. He is concerned stitches need to be removed. He states the problem is not his roommate. He states the problem is me . Patient states he is on no medication. He was unaware that he had red dots on his lower extremity. He denies hematemesis, melena hematochezia. He denies hematuria. He denies any constitutional symptoms. He states he was diagnosed with seizures; however, he was placed on no anticonvulsant meds. Suspect patient has non-convulsant motor activity. Prior similar symptoms: No Recent Illness/Hospitalization: Yes - Past Medical History (1) No significant past medical history Status: Acute Past Medical History - Allergies and Home Meds Allergies/Adverse Reactions: Allergies No Known Allergies Allergy (Verified 01/23/19 15:49) Primary Care Physician: Redd Baeza DO [Primary Care Provider] - Prior records reviewed: Yes Surgical History: no surgical history Lives: Roommate Smoking Status: Current some day smoker Alcohol: None Drugs: None Review of Systems General: Denies: Chills, Fever, Sweats Eyes: Denies: Visual changes - bilaterally, Diplopia ENT: Denies: Rhinorrhea, Sore throat Cardiovascular: Denies: Chest pain, Palpitations Respiratory: Denies: Dyspnea, Cough, Dyspnea on exertion Gastrointestinal: Denies: Abdominal pain, Nausea, Vomiting, Diarrhea, Melena, Hematochezia Genitourinary: Denies: Dysuria, Hematuria, Frequency Musculoskeletal: Denies: Back pain, Extremity Pain Skin: Denies: Rash, Wounds Neurological: Denies: Headache, Weakness, Numbness Psych: Reports: Anxiety. Denies: Depression, Suicidal thoughts, Suicidal ideations Hematologic: Denies: Easy bruising Allergy: Denies: Uticaria, Swelling of the mouth Physical Exam Vital Signs/Narrative: Vital Signs Temp Pulse Resp BP Pulse Ox 01/23/19 15:50 97.8 F 99 18 151/106 H 96 Inital Vital Signs reviewed: Yes General: Well nourished, Well developed, No Acute Distress, - - Patient appears anxious and his arms are wrapped in a blanket to prevent himself from twitching and hitting himself. Head: Normocephalic, Atraumatic Eyes: Perrl, EOMI. Negative for: Pale conjunctiva, Scleral icterus, - ENT: Moist mucous membranes, No rhinorrhea. Negative for: TM's clear - Able to visualize right external auditory canal because of prior trauma and surgery. Neck: Supple, Nontender, No lymphadenopathy, No JVD, - Cardiovascular: Regular rate, Regular rhythm, No murmurs, Normal S1, Normal S2 Respiratory: No distress, CTA bilaterally, Chest nontender Abdomen: Soft, Nontender, Nondistended, Normal bowel sounds, No masses Back: Nontender, Normal Inspection Extremities: Nontender, No edema Skin: Normal color, Rash - She has petechia right and left lower extremity. Negative for: No rash, Cyanosis, Jaundice Neurological: Alert, Oriented x3, Cranial nerves II-XII grossly intact, Normal Strength, Normal Sensation, Normal DTR - There is no clonus or Babinski sign Psychological: - - Anxious Diagnostic/Tx/Re-eval Laboratory Results 01/23/19 01/23/19 16:20 16:20 WBC 9.6 RBC 4.94 Hgb 14.9 Hct 42.9 MCV 86.8 MCH 30.2 MCHC 34.7 RDW 13.3 RDW Differential 41.9 Plt Count 277 MPV 10.5 Immature Gran % (Auto) 0.100 Neut % (Auto) 51.0 Lymph % (Auto) 36.9 [place] % (Auto) 7.6 Eos % (Auto) 4.0 Baso % (Auto) 0.4 Absolute Neuts (auto) 4.9 Absolute Lymphs (auto) 3.54 Total Counted Not Reportable Sodium 143 Potassium 3.5 Chloride 110 H Carbon Dioxide 23.0 Anion Gap 10 BUN 7 Creatinine 0.89 Estim Creat Clear Calc 125.74 Est GFR (MDRD) Af Amer 126 Est GFR (MDRD) Non-Af 104 BUN/Creatinine Ratio 7.9 L Glucose 95 Calcium 8.9 - Medical Decision Making Since patient has petechiae lower extremity CBC was obtained to assess H&H and platelet count. He received 0.5 mg of Ativan for his anxiety. Since blood work is normal no need for medical admission. Since Tyrese Phillips from the counseling center was present he looked up his records patient has history of depression with psychotic features. He is not depressed presently and he has no psychotic features. Believe he has anxiety disorder. Plan is for the counseling center to contact on Friday to assess him by phone. ED Disposition - Plan for ED Patient: Disposition: Home or Assisted Living Diagnosis: Anxiety reaction Instructions: ED Stress React Referrals: Redd Baeza DO [Primary Care Provider] - Counseling,Center [GROUP OF PHYSICIANS] - 5-7 Days
[2019-01-23] MEDS: LORazepam 0.5 MG Tablet PO (16:08)
--- NOTE | 2019-01-23 16:22 | ED.RN ---
PT ASKING TO BE RESTRAINED. WHAT DO I HAVE TO DO TO GET RESTRAINED, I WANT TO BE RESTRAINED. ADVISED PT THAT WE CANNOT RESTRAIN HIM.
[2019-01-23 16:32] LABS: Absolute Lymphocyte Count 3.54 X10^3/ul (0.83-4.51); Absolute Neutrophil Count 4.9 X10^3/uL (2.0-7.7); Basophil# 0.04 X10^3/uL; Basophil% 0.4 % (0-1); Eosinophil# 0.38 X10^3/uL; Hematocrit 42.9 % (40-54); Hemoglobin 14.9 g/dl (13.0-16.5); Lymphocyte # 3.54 X10^3/ul (4.0); Lymphocyte % 36.9 % (19-41); Mean Corp Hgb Conc 34.7 g/gl (32-36); Mean Corpuscular Hgb 30.2 pg (27.0-32.0); Mean Corpuscular Volume 86.8 fL (80-94); Mean Platelet Vol. 10.5 fl (6.2-12.0); Monocyte# 0.73 X10^3/uL; Monocyte% 7.6 % (0-10); Neutrophil # 4.89 X10^3/uL (2.7-7.7); Platelet Count 277 K/mm3 (150-450); RBC Distribution Width CV 13.3 % (11.6-14.6); RBC Distribution Width SD 41.9 fl (35.1-43.9); Red Blood Count 4.94 M/mm3 (4.6-6.2); White Blood Count 9.6 K/mm3 (4.4-11.0)
[2019-01-23 16:33] LABS: POSITIVE COUNT NO; POSITIVE DIFFERENTIAL NO; POSITIVE MORPHOLOGY NO
[2019-01-23 16:37] LABS: Anion Gap 10 (5-15); BUN 7 mg/dL (7-18); BUN/Creat Ratio 7.9 RATIO (10-20); Calcium,Total 8.9 mg/dL (8.5-10.1); Chloride 110 mmol/L (98-107); Creatinine, Serum 0.89 mg/dL (0.70-1.30); EST Glomerular Filtration Rate 104 mL/min (>60); Est Glom Filt Rate - Afr Amer 126 mL/min (>60); Estimated Creatinine Clearance 125.74 ml/min; Glucose 95 mg/dL (74-106); Potassium 3.5 mmol/L (3.5-5.1); Sodium Level 143 mmol/L (136-145)
[2019-01-23 17:48] VITALS: BP 123/83; PULSE 80; RESP 16; O2SAT 98
--- NOTE | 2019-01-23 17:49 | ED.RN ---
REVIEWED D/C INSTRUCTIONS, FOLLOW UP CARE, AND S/S THAT WOULD WARRANT A RETURN TO THE ED WITH PT. PT VERBALIZED AN UNDERSTANDING AND DENIES FURTHER QUESTIONS FOR THIS RN. PT SKIN P/W/D, RESP EVEN AND UNLABORED, MECHANICAL ASSEMBLY TECHNICIAN&O X 3, NO DISTRESS NOTED. PT AMBULATED OUT OF ED, GAIT STEADY.
== END 2019-01-23 17:50 | disposition home or self-care (01) ==
PROVIDERS: Emergency Provider Emergency Medicine; Family Provider Student in an Organized Health Care Education/Training Program; PCP Student in an Organized Health Care Education/Training Program
DX: F41.1 Generalized anxiety disorder (principal); F17.200 Nicotine dependence, unspecified, uncomplicated; Z79.899 Other long term (current) drug therapy; Z98.890 Other specified postprocedural states
CPT/HCPCS: 80048; 85025; 99285; A4216

== ENCOUNTER 2019-04-12 07:53 | Emergency (ER) | payer MEDICAID, SELFPAY ==
[2019-04-12 07:54] VITALS: BP 135/92; PULSE 86; RESP 18; TEMP 36.8; O2SAT 99; BMI 27.7
--- NOTE | 2019-04-12 08:08 | ED.DCSUM_ITS ---
- ER Visit Summary Date of Service: 04/12/19 Chief Complaint: Anxiety History of Present Illness: The patient is a 33 M states he has a history of depression and anxiety. He takes respite on at night. He sees psychiatry and machine adjuster leader case trim at [facility]. He states he was at a nursing home. He tells me that today he told his nursing home later that he was having really bad panic attacks/issues and was concerned he might hit his head on a doorway. He denies any suicidal or homicidal ideation. He states he has been sleeping well. He saw a psychiatrist a couple days ago and states he did not address these concerns. He saw his machine adjuster leader case trim a couple days ago as well and did not address any of these concerns. He states these concerns have been ongoing for more than a week. Physical Examination: Afebrile vital signs are stable Gen: Well-nourished well-developed Head: Normocephalic atraumatic Eyes: Perrl EOMI ENT: TMs clear no rhinorrhea moist mucous membranes Neck: Supple no lymphadenopathy no JVD nontender CVS: Regular rate rhythm no murmurs normal S1-S2 Respiratory: No distress clear to auscultation bilaterally chest nontender Abdomen: Soft nontender nondistended normal bowel sounds no masses Back: Nontender Extremity: Nontender no edema Skin: Normal color no rash Neuro: alert orientated ?3 CN II-XII intact normal strength sensation reflexes gait cerebellar Psych: The patient has a rather flat affect. He does not have any pressured speech. No suicidal thoughts or homicidal thoughts. He does not appear internally stimulated. Emergency Department Course and Treatment: Patient was given a p.o. dose of Ativan. He is not suicidal or homicidal. This is not an acute issue. I suggested to the patient that he call his machine adjuster leader case trim today. Impression: 1. Anxiety This note was generated with [employer] dictation software. It may contain incorrect words, spelling, and punctuation that were not noted in review of the chart prior to signing ED Disposition - Plan for ED Patient: Instructions: Anxiety Reaction Referrals: Counseling,Center [GROUP OF PHYSICIANS] - (I recommend that you call your machine adjuster leader case trim today to discuss these ongoing symptoms.)
[2019-04-12] MEDS: LORazepam 0.5 MG Tablet PO (08:09)
== END 2019-04-12 08:22 | disposition home or self-care (01) ==
LOC: ED 08:08
PROVIDERS: Emergency Provider Emergency Medicine; Family Provider Student in an Organized Health Care Education/Training Program; PCP Student in an Organized Health Care Education/Training Program
DX: F41.9 Anxiety disorder, unspecified (principal)
CPT/HCPCS: 99284

== ENCOUNTER 2019-04-26 07:56 | Emergency (ER) | payer MEDICAID, SELFPAY ==
[2019-04-26 07:56] VITALS: BP 130/89; PULSE 73; RESP 16; TEMP 36.4; O2SAT 98; BMI 27.6
--- NOTE | 2019-04-26 08:12 | ED.VISSUMM ---
- ER Visit Summary Date of Service: 04/26/19 Chief Complaint: [Scalp laceration] History of Present Illness: The patient is a 33 M [presents to the emergency department via EMS from [facility]. Patient apparently was in bed and started having jolting episodes which caused him to strike his head on the nightstand. Patient does not have a history of seizure disorder. There is no loss of consciousness. Patient when he gets anxious starts to have episodes of twitching. He is unsure of his last tetanus shot. He denies any other injuries.] Physical Examination: [HEENT-PERRLA, EOMI. Cranial nerves II through XII grossly intact. TMs clear. Mucous membranes moist. No adenopathy. She has a 1 cm superficial skin laceration over the right frontal scalp. No bony step-offs. No C-spine tenderness on palpation. No other evidence of trauma. Cardiovascular-regular rate and rhythm without murmur or ectopy Lungs-clear to auscultation, chest wall stable without crepitus or subcu emphysema Abdomen-normoactive bowel sounds, soft, nontender, no rebound or rigidity, no peritoneal signs. Extremities-intact ?4, normal range of motion, normal pulses, atraumatic] Test Results: [None indicated] Emergency Department Course and Treatment: [Superficial skin laceration cleansed with saline and dried. Using Dermabond I applied the Dermabond glue to the skin with good wound edge approximation. Patient tired procedure well.] Treatment Plan: [Advised to follow-up with primary care physician in 5 to 7 days for wound check. To return if increasing pain, redness, swelling, or conditions worsen anyway.] Disposition: [Discharged home stable condition] Impression: [Post head injury 1 cm superficial skin laceration to frontal scalp with Dermabond repair] This note was generated with [email or web address] dictation software. It may contain incorrect words, spelling, and punctuation that were not noted in review of the chart prior to signing ED Disposition - Plan for ED Patient: Referrals: Redd Baeza DO [Primary Care Provider] -
--- NOTE | 2019-04-26 08:15 | ED.DEP ---
ED Disposition - Plan for ED Patient: Instructions: LACERATION, Small/superficial, Not sutured, LACERATION, Face (Skin Glue) Referrals: Redd Baeza DO [Primary Care Provider] - 5-7 Days
[2019-04-26] MEDS: Ondansetron ODT 4 MG Tablet PO (08:32)
[2019-04-26] MEDS: Diphth,Pertuss(Acell),Tet Vac 0.5 ML Vial IM (08:33)
[2019-04-26 08:36] VITALS: BP 128/74; PULSE 75; RESP 16; O2SAT 99
== END 2019-04-26 08:55 | disposition home or self-care (01) ==
LOC: ED 08:21
PROVIDERS: Emergency Provider Emergency Medicine; Family Provider Student in an Organized Health Care Education/Training Program; PCP Student in an Organized Health Care Education/Training Program
DX: S01.01XA Laceration without foreign body of scalp, initial encounter (principal); W26.9XXA Contact with unspecified sharp object(s), initial encounter; Y93.84 Activity, sleeping; Y92.199 Unspecified place in other specified residential institution as the place of occurrence of the external cause; Y99.8 Other external cause status
CPT/HCPCS: 90471; 90715

== ENCOUNTER 2019-04-26 16:03 | Emergency (ER) | payer MEDICAID, SELFPAY ==
[2019-04-26 07:56] VITALS: BMI 27.6
[2019-04-26 16:04] VITALS: BP 129/79; PULSE 85; RESP 16; TEMP 36.8; O2SAT 96; BMI 32.8
--- NOTE | 2019-04-26 16:05 | ED.RN ---
PT STATES HE IS HEARING VOICES THAT ARE TELLING HIM TO CUT HIS WRISTS. PT STATES HE HAS ACCESS TO [facility], HAS NOT MADE ATTEMPTS TODAY. 1:1 SITTER INITIATED AT 1605.
--- NOTE | 2019-04-26 16:23 | ED.VIS.PSYCH ---
History of Present Illness Chief Complaint: Suicidal Informant: Patient Narrative: Patient presents with long-standing psychiatric history. He has auditory hallucinations. He states today the voices are worse. He feels like he is going to cut his wrists. He tried his typical coping mechanisms without improvement. He does see the counseling center and states his medications were adjusted approximately 2 weeks ago, but has not noted significant improvement. Patient is noted to have been in the emergency room earlier today. He bumped his head on the nightstand while lying in bed. He had a small abrasion that was repaired with Dermabond. There is no loss of consciousness. He has no headache, vision changes, nausea, or vomiting. Past Medical History - Allergies and Home Meds Allergies/Adverse Reactions: Allergies No Known Allergies Allergy (Verified 04/26/19 16:04) Primary Care Physician: Redd Baeza DO [Primary Care Provider] - Doctors: Counseling center Prior records reviewed: Yes Past Medical History: - - Reviewed Surgical History: no surgical history Smoking Status: Current some day smoker Review of Systems General: Denies: Chills, Fever Eyes: Denies: Visual changes - bilaterally ENT: Denies: Bilateral ear pain Cardiovascular: Denies: Chest pain Respiratory: Denies: Dyspnea Gastrointestinal: Denies: Abdominal pain Musculoskeletal: Denies: Myalgias, Arthralgias Skin: Denies: Rash Neurological: Denies: Headache Physical Exam Vital Signs/Narrative: Vital Signs Temp Pulse Resp BP Pulse Ox 04/26/19 16:04 98.2 F 85 16 129/79 H 96 Inital Vital Signs reviewed: Yes General: Well nourished, Well developed Head: - - Abrasion to right parietal scalp with Dermabond. No surrounding tenderness. ENT: Moist mucous membranes Neck: Supple Cardiovascular: Regular rate, Regular rhythm Respiratory: No distress, CTA bilaterally Abdomen: Soft, Nontender Extremities: Nontender Skin: Normal color, No rash Neurological: Alert, Oriented x3 Psych: Normal Speech Pattern, Flat Affect, Suicidal thoughts, Hallucinations Diagnostic/Tx/Re-eval Laboratory Results 04/26/19 04/26/19 04/26/19 16:22 16:22 16:22 WBC 11.4 H RBC 5.17 Hgb 15.8 Hct 47.4 MCV 91.7 MCH 30.6 MCHC 33.3 RDW Std Deviation 44.2 H RDW Coeff of Melquiades 13.0 Plt Count 266 MPV 9.9 Immature Gran % (Auto) 0.400 Neut % (Auto) 62.7 Lymph % (Auto) 27.1 [place] % (Auto) 6.0 Eos % (Auto) 3.2 Baso % (Auto) 0.6 Absolute Neuts (auto) 7.1 Absolute Lymphs (auto) 3.08 Nucleated RBC % 0 Sodium 138 Potassium 4.0 Chloride 109 H Carbon Dioxide 24.0 Anion Gap 5 BUN 15 Creatinine 0.79 Estim Creat Clear Calc 120.02 Est GFR (MDRD) Af Amer 145 Est GFR (MDRD) Non-Af 120 BUN/Creatinine Ratio 19.1 Glucose 89 Calcium 8.9 Urine Opiates Screen Urine Methadone Screen Ur Barbiturates Screen Ur Phencyclidine Scrn Ur Amphetamines Screen U Methamphetamin-MDMA U Benzodiazepines Scrn Urine Cocaine Screen U Cannabinoids Screen Ur Drug Screen Comment Ethyl Alcohol 5.0 04/26/19 16:40 WBC RBC Hgb Hct MCV MCH MCHC RDW Std Deviation RDW Coeff of Melquiades Plt Count MPV Immature Gran % (Auto) Neut % (Auto) Lymph % (Auto) [place] % (Auto) Eos % (Auto) Baso % (Auto) Absolute Neuts (auto) Absolute Lymphs (auto) Nucleated RBC % Sodium Potassium Chloride Carbon Dioxide Anion Gap BUN Creatinine Estim Creat Clear Calc Est GFR (MDRD) Af Amer Est GFR (MDRD) Non-Af BUN/Creatinine Ratio Glucose Calcium Urine Opiates Screen NEGATIVE Urine Methadone Screen NEGATIVE Ur Barbiturates Screen NEGATIVE Ur Phencyclidine Scrn NEGATIVE Ur Amphetamines Screen NEGATIVE U Methamphetamin-MDMA NEGATIVE U Benzodiazepines Scrn NEGATIVE Urine Cocaine Screen NEGATIVE U Cannabinoids Screen NEGATIVE Ur Drug Screen Comment Ethyl Alcohol Patient was discussed with social work. Patient at this time does not feel that he is able to keep himself safe. Test results of been faxed to psychiatric facility for transfer. Disposition: [facility] Disposition - Plan for ED Patient: Disposition: Psychiatric Hospital or Unit Diagnosis: Suicidal ideation Referrals: Redd Baeza DO [Primary Care Provider] -
[2019-04-26 16:30] LABS: Absolute Lymphocyte Count 3.08 X10^3/uL (0.83-4.51); Absolute Neutrophil Count 7.1 X10^3/uL (2.0-7.7); Basophil# 0.07 X10^3/uL; Basophil% 0.6 % (0-1); Eosinophil# 0.36 X10^3/uL; Eosinophils% 3.2 % (0-5); Hematocrit 47.4 % (40-54); Hemoglobin 15.8 g/dL (13.0-16.5); Lymphocyte # 3.08 X10^3/ul (4.0); Lymphocyte % 27.1 % (19-41); Mean Corp Hgb Conc 33.3 g/dL (32-36); Mean Corpuscular Hgb 30.6 pg (27.0-32.0); Mean Corpuscular Volume 91.7 fL (80-94); Mean Platelet Vol. 9.9 fl (6.2-12.0); Monocyte# 0.68 X10^3/uL; NRBC Flagged by Analyzer 0 % (0-5); Neutrophil # 7.12 X10^3/uL (2.7-7.7); Neutrophil % 62.7 % (47-70); Platelet Count 266 K/mm3 (150-450); RBC Distribution Width SD 44.2 fl (35.1-43.9); Red Blood Count 5.17 M/mm3 (4.6-6.2); White Blood Count 11.4 K/mm3 (4.4-11.0)
--- NOTE | 2019-04-26 16:40 | CM.ED ---
Social Work Consult: Suicidal Informant: Dr. Xavier Chief Complaint: I am hearing voices that are telling me to cut myself. They have not been this bad for a long time. Patient stating to have hit head on dresser this morning in attempted to stop the voices. Marital/Social History: Single. Living Situation: Patient lives in a fdc setting as of April 07 2019. Support/Resources: Cherelle Arroyo, clinical applications manager, Aletha through [employer] Psyciatrist, Tish through [employer] Employment Hx: Patient currently unemployed with current income through Social Security Disability. Mental Health Treatment/History: Patient stating to be unsure of mental health diagnosis. Patient stating to be taking Seroquel to manage mental health. Patient reporting to have depression and anxiety. Patient stating to have a history of inpatient psychiatric stay and unsure as of when last hospitalization was. Abuse Issues: Patient denies any history of abuse from others but stating concern of risk to self. Substance Abuse Hx: Patient stating to currently smoke 1 ppd of cigarettes. Risk to Self/Others: Patient stating that the voices in patient head are telling patient to hurt self. Patient stating to not trust self to keep self safe. Patient stating voices are really bad. Patient stating that current plan would be to cut myself to end it all. Appearance/General Behavior: Patient directable and calm during assessment. Mood/Affect: Depressed Communication Pattern: responds to questions. Thought Process: Stating to be hearing voices currently. Patient also speaking to voices often during assessment. This medical social consultant would need to repeat self often in order for patient to hear what this medical social consultant was asking. Patient often stating I did not hear what you said. Patient appearing to have wondering thoughts. Assessment: Met with patient and patient director of casework, Aletha in room. This medical social consultant introduced self as well as medical social consultant role. Patient agreeable to speaking with this medical social consultant. This medical social consultant inquiring about speaking with patient in front of Aletha. Patient wanting Aletha to stay in room while this medical social consultant completed assessment. Patient stating to have been to the Emergency Department earlier this morning for hitting my head on dresser. Patient stating to have intentionally hit head on dresser to get the voices to stop. Patient stating that hitting head on dresser did not help with voices. Patient stating to typically be able to control voices. Patient stating to have gone to [employer], a walker, and to the store in attempt to distract well from voices. Patient stating that no distraction helped today. Patient stating to have been trying to stay with people for fear that patient will hurt self. Patient stating that a worker at [employer] recommended for patient to come to the hospital for help. Patient stating to not feel safe to self. Patient did attempt to follow through with coping skills and these do not appear to be helping patient at this time. This medical social consultant inquiring as to any recent triggers for patient. Patient denies any recent triggers. Patient stating to have had a change in medication on Apr.12 by psychiatrist. Recommending inpatient psychiatric hospitalization ones patient is medically cleared. Collaborating with Dr. Xavier. Dr. Xavier agreeing that patient needs inpatient psychiatric placement. Interventions: Social Work assessment Inpatient Psychiatric Placement. PLAN: Transition to Inpatient Psychiatric facility once patient is medically cleared. Will continue to follow. Rubén ROBLERO, RENE
[2019-04-26 16:43] LABS: Anion Gap 5 (5-15); BUN 15 mg/dL (7-18); BUN/Creat Ratio 19.1 RATIO (10-20); Calcium,Total 8.9 mg/dL (8.5-10.1); Chloride 109 mmol/L (98-107); Creatinine, Serum 0.79 mg/dL (0.70-1.30); EST Glomerular Filtration Rate 120 mL/min (>60); Est Glom Filt Rate - Afr Amer 145 mL/min (>60); Estimated Creatinine Clearance 120.02 ml/min; Glucose 89 mg/dL (74-106); Sodium Level 138 mmol/L (136-145)
[2019-04-26 17:00] LABS: Amphetamine Urine VISTA NEGATIVE (<1000 ng/mL); Barbiturate Urine VISTA NEGATIVE (< 200 ng/mL); Benzodiazepine Urine VISTA NEGATIVE (< 200 ng/mL); Cocaine Urine VISTA NEGATIVE (< 300 ng/mL); Ecstacy Urine VISTA NEGATIVE (< 500 ng/mL); Methadone Urine VISTA NEGATIVE (< 300 ng/mL); PCP Urine VISTA NEGATIVE (< 25 ng/mL); THC Urine VISTA NEGATIVE (< 50 ng/mL); Vista UDS pH Range 5
--- NOTE | 2019-04-26 17:08 | CM.ED ---
Social Work Telephone call to [facility], intake. Referral placed and faxed. Pending approval. Rubén Long MSW, RENE
[2019-04-26 19:02] VITALS: BP 138/75; PULSE 78; RESP 16; O2SAT 100
--- NOTE | 2019-04-26 19:18 | CM.ED ---
Social Work Telephone call from [facility]. Patient has been accepted. Toby Etienne will give admitting information once pink slip is faxed. This rn social work faxing [facility] at this time. Waiting return phone call. Medical staff notified of above information. Rubén ROBLERO, RENE
--- NOTE | 2019-04-26 20:01 | CM.ED ---
Social Work Telephone call from [facility]. Accepting: Dr. Garcia. Room 304 bed #1. Nurse to call report. Notified nursing staff as well as doctor. All agreeable to plan. Rubén ROBLERO, RENE
[2019-04-26] MEDS: Benztropine 2 MG Tablet 0.5 MG PO (20:03)
[2019-04-26] MEDS: QUEtiapine 100 MG Tablet 150 MG PO (20:03)
[2019-04-26 20:14] VITALS: RESP 16
[2019-04-26 20:42] VITALS: BP 99/77; PULSE 71; RESP 16; TEMP 36.7; O2SAT 97
== END 2019-04-26 21:09 ==
PROVIDERS: Emergency Provider Emergency Medicine; Family Provider Student in an Organized Health Care Education/Training Program; PCP Student in an Organized Health Care Education/Training Program
DX: R45.851 Suicidal ideations (principal); S01.01XA Laceration without foreign body of scalp, initial encounter; F32.9 Major depressive disorder, single episode, unspecified; F17.200 Nicotine dependence, unspecified, uncomplicated; Z79.899 Other long term (current) drug therapy; W26.9XXA Contact with unspecified sharp object(s), initial encounter; Y93.84 Activity, sleeping; Y92.199 Unspecified place in other specified residential institution as the place of occurrence of the external cause; Y99.8 Other external cause status
CPT/HCPCS: 12001; 80048; 80307; 80320; 85025; 90471; 90715; 99284; G0480

== ENCOUNTER 2019-07-27 12:19 | Emergency (ER) | payer MEDICAID, SELFPAY ==
[2019-07-27 12:20] VITALS: BP 135/90; PULSE 84; RESP 15; TEMP 36.6; O2SAT 99; BMI 30.9
--- NOTE | 2019-07-27 12:43 | ED.VIS.GEN ---
History of Present Illness Chief Complaint: Suicidal Informant: Patient Onset: Days - 2 Narrative: Brought here from skilled nursing with counselor for evaluation suicidal ideations for the past 2 days. History of diagnosed schizophrenia on Zyprexa. He states he has been taking his medications at night. When asked he does report possibly diagnosis of depression along bipolar however not on any medications for this. He is followed by Dr. Cr for psychiatry. He states he made followed up 1 to 2 weeks ago. Denies any alcohol or any illicit drug use. Denies visual hallucinations. States he does hear voices it tells him to do bad things to hurt himself however not others. Reports has cut his wrist in the past along with overdosing when he was younger. Cannot recall when his last hospitalization was. States his plan is to cut his wrists in his throat. Denies cough, nausea vomiting or any urinary symptoms. Prior similar symptoms: Yes Past Medical History - Allergies and Home Meds Allergies/Adverse Reactions: Allergies No Known Allergies Allergy (Verified 07/27/19 13:57) Primary Care Physician: Redd Baeza DO [Primary Care Provider] - Surgical History: no surgical history Smoking Status: Current every day smoker Review of Systems General: Denies: Chills, Fever, Sweats Eyes: Denies: Visual changes - bilaterally, Diplopia ENT: Denies: Rhinorrhea, Sore throat Cardiovascular: Denies: Chest pain, Palpitations Respiratory: Denies: Dyspnea, Cough, Dyspnea on exertion Gastrointestinal: Denies: Abdominal pain, Nausea, Vomiting, Diarrhea, Melena, Hematochezia Genitourinary: Denies: Dysuria, Hematuria, Frequency Musculoskeletal: Denies: Back pain, Extremity Pain Skin: Denies: Rash, Wounds Neurological: Denies: Headache, Weakness, Numbness Psych: Reports: Suicidal thoughts, Suicidal ideations Physical Exam Vital Signs/Narrative: Vital Signs Temp Pulse Resp BP Pulse Ox 07/27/19 12:20 97.8 F 84 15 135/90 H 99 Inital Vital Signs reviewed: Yes General: Well nourished, Well developed, No Acute Distress Head: Normocephalic, Atraumatic Eyes: Perrl, EOMI ENT: Moist mucous membranes, No rhinorrhea Neck: Supple, Nontender Cardiovascular: Regular rate, Regular rhythm, No murmurs Respiratory: No distress, CTA bilaterally, Chest nontender Abdomen: Soft, Nontender, Nondistended, Normal bowel sounds Back: Nontender, Normal Inspection Extremities: Nontender, No edema Skin: Normal color, No rash Neurological: Alert, Oriented x3, Cranial nerves II-XII grossly intact, Normal Strength, Normal Sensation Psychological: - - Flat affect, admits to suicidal ideations, no homicidal ideations. Diagnostic/Tx/Re-eval Abnormal Lab Results 07/27/19 07/27/19 07/27/19 12:54 13:14 13:14 WBC 11.4 H RBC 5.12 Hgb 15.5 Hct 46.9 MCV 91.6 MCH 30.3 MCHC 33.0 RDW Std Deviation 43.7 RDW Coeff of Melquiades 13.1 Plt Count 238 MPV 10.1 Immature Gran % (Auto) 0.400 Neut % (Auto) 63.2 Lymph % (Auto) 24.8 [place] % (Auto) 6.1 Eos % (Auto) 4.6 Baso % (Auto) 0.9 Absolute Neuts (auto) 7.2 Absolute Lymphs (auto) 2.82 Nucleated RBC % 0 Sodium 139 Potassium 3.9 Chloride 106 Carbon Dioxide 28.0 Anion Gap 5 BUN 7 Creatinine 0.70 Estim Creat Clear Calc 158.37 Est GFR (MDRD) Af Amer 165 Est GFR (MDRD) Non-Af 136 BUN/Creatinine Ratio 9.9 L Glucose 95 Calcium 8.8 Urine Opiates Screen NEGATIVE Urine Methadone Screen NEGATIVE Ur Barbiturates Screen NEGATIVE Ur Phencyclidine Scrn NEGATIVE Ur Amphetamines Screen NEGATIVE U Methamphetamin-MDMA NEGATIVE U Benzodiazepines Scrn NEGATIVE Urine Cocaine Screen NEGATIVE U Cannabinoids Screen NEGATIVE Ur Drug Screen Comment Ethyl Alcohol 07/27/19 13:14 WBC RBC Hgb Hct MCV MCH MCHC RDW Std Deviation RDW Coeff of Melquiades Plt Count MPV Immature Gran % (Auto) Neut % (Auto) Lymph % (Auto) [place] % (Auto) Eos % (Auto) Baso % (Auto) Absolute Neuts (auto) Absolute Lymphs (auto) Nucleated RBC % Sodium Potassium Chloride Carbon Dioxide Anion Gap BUN Creatinine Estim Creat Clear Calc Est GFR (MDRD) Af Amer Est GFR (MDRD) Non-Af BUN/Creatinine Ratio Glucose Calcium Urine Opiates Screen Urine Methadone Screen Ur Barbiturates Screen Ur Phencyclidine Scrn Ur Amphetamines Screen U Methamphetamin-MDMA U Benzodiazepines Scrn Urine Cocaine Screen U Cannabinoids Screen Ur Drug Screen Comment Ethyl Alcohol < 3.0 - Medical Decision Making Patient cooperate in the ED, admits to suicidal ideation with a plan. Medical screening labs were normal. He is medically cleared. Evaluated by counselor in the ED, he is pink slip. He is accepted to [facility] under the service of Dr. Gomez. ED Disposition - Plan for ED Patient: Disposition: Psychiatric Hospital or Unit Diagnosis: Suicidal ideation Referrals: Redd Baeza DO [Primary Care Provider] -
--- NOTE | 2019-07-27 12:56 | CM.ED ---
SOCIAL WORK CALL FROM [facility] WITH CRISIS. PATIENT HAS BEEN ASSESSED BY CRISIS AND REQUIRES MEDICAL CLEARANCE FOR PLACEMENT. CRISIS REQUESTS CALL ONCE PATIENT IS MEDICALLY CLEARED AND WORKER WILL BE IN TO FACILITATE PLACEMENT. PLAN: CALL CRISIS ONCE MEDICALLY CLEARED FOR PLACEMENT. ASSESSMENT COMPLETED BY PHARMACY CLINICAL SPECIALISTEVETTE. Danisha SOL, VACUUM FORM OPERATOR, BUCKLE STRAP DRUM OPERATOR.
[2019-07-27 13:12] LABS: Amphetamine Urine VISTA NEGATIVE (<1000 ng/mL); Barbiturate Urine VISTA NEGATIVE (< 200 ng/mL); Benzodiazepine Urine VISTA NEGATIVE (< 200 ng/mL); Cocaine Urine VISTA NEGATIVE (< 300 ng/mL); Ecstacy Urine VISTA NEGATIVE (< 500 ng/mL); Methadone Urine VISTA NEGATIVE (< 300 ng/mL); PCP Urine VISTA NEGATIVE (< 25 ng/mL); THC Urine VISTA NEGATIVE (< 50 ng/mL); Vista UDS pH Range 5
[2019-07-27 13:21] LABS: Absolute Lymphocyte Count 2.82 X10^3/uL (0.83-4.51); Absolute Neutrophil Count 7.2 X10^3/uL (2.0-7.7); Basophil% 0.9 % (0-1); Eosinophil# 0.52 X10^3/uL; Eosinophils% 4.6 % (0-5); Hematocrit 46.9 % (40-54); Hemoglobin 15.5 g/dL (13.0-16.5); Lymphocyte # 2.82 X10^3/ul (4.0); Lymphocyte % 24.8 % (19-41); Mean Corpuscular Hgb 30.3 pg (27.0-32.0); Mean Corpuscular Volume 91.6 fL (80-94); Mean Platelet Vol. 10.1 fl (6.2-12.0); Monocyte# 0.69 X10^3/uL; Monocyte% 6.1 % (0-10); NRBC Flagged by Analyzer 0 % (0-5); Neutrophil % 63.2 % (47-70); Platelet Count 238 K/mm3 (150-450); RBC Distribution Width CV 13.1 % (11.6-14.6); RBC Distribution Width SD 43.7 fl (35.1-43.9); Red Blood Count 5.12 M/mm3 (4.6-6.2); White Blood Count 11.4 K/mm3 (4.4-11.0)
[2019-07-27 13:35] LABS: Anion Gap 5 (5-15); BUN 7 mg/dL (7-18); BUN/Creat Ratio 9.9 RATIO (10-20); Calcium,Total 8.8 mg/dL (8.5-10.1); Chloride 106 mmol/L (98-107); EST Glomerular Filtration Rate 136 mL/min (>60); Est Glom Filt Rate - Afr Amer 165 mL/min (>60); Estimated Creatinine Clearance 158.37 ml/min; Glucose 95 mg/dL (74-106); Potassium 3.9 mmol/L (3.5-5.1); Sodium Level 139 mmol/L (136-145)
[2019-07-27 13:40] LABS: Alcohol, Blood (Medical)-Serum < 3.0 mg/dL
[2019-07-27 13:47] VITALS: RESP 14
[2019-07-27 14:00] VITALS: RESP 16
--- NOTE | 2019-07-27 14:21 | NURSING ---
EVETTE, CRISIS, COMING TO SEE PATIENT
[2019-07-27 15:00] VITALS: RESP 14
[2019-07-27] MEDS: Nicotine Polacrilex 2 MG GUM PO (15:47)
--- NOTE | 2019-07-27 15:52 | NURSING ---
EVETTE, CRISIS, HERE
[2019-07-27 16:00] VITALS: BP 126/78; PULSE 82; RESP 16; O2SAT 96
[2019-07-27 17:00] VITALS: RESP 16
--- NOTE | 2019-07-27 17:03 | NURSING ---
GERMAN VILLANUEVA COMING IN 30 MIN
[2019-07-27] MEDS: hydrOXYzine PAM 25 MG Capsule 50 MG PO (17:40)
[2019-07-27] MEDS: Acetaminophen 500 MG Tablet 1000 MG PO (17:41)
== END 2019-07-27 18:01 ==
PROVIDERS: Emergency Provider Emergency Medicine; Family Provider Student in an Organized Health Care Education/Training Program; PCP Student in an Organized Health Care Education/Training Program
DX: R45.851 Suicidal ideations (principal); F20.9 Schizophrenia, unspecified; Z79.899 Other long term (current) drug therapy; F17.200 Nicotine dependence, unspecified, uncomplicated
CPT/HCPCS: 80048; 80307; 80320; 85025; 99284; G0480

== ENCOUNTER 2019-12-08 12:58 | Emergency (ER) | payer MEDICAID, SELFPAY ==
[2019-12-08 13:00] VITALS: BP 145/92; PULSE 88; RESP 16; TEMP 36.1; O2SAT 98; BMI 34.0
--- NOTE | 2019-12-08 13:38 | CT_ITS ---
STUDY: CT BRAIN WITHOUT CONTRAST REASON FOR EXAM: Male, 34 years old. Insomnia x 1 week RADIATION DOSAGE (If Supplied By Facility): CTDIvol = ( 60.81 ) mGy, DLP = ( 998.67 ) mGycm TECHNIQUE: Transaxial CT imaging of the brain was performed without administration of intravenous contrast material. Individualized dose optimization techniques were used for this CT. COMPARISON: Comparison is made with prior examination dated September 21, 2018. FINDINGS: Normal soft tissue structures. Normal calvarium. Normal size ventricles and extra-axial spaces for the patient''s age. Normal white matter tracts of the cerebral hemispheres. Normal basal ganglia and thalami. Normal brainstem. Normal cerebellum. There is no intracranial hemorrhage. There are no findings of an acute ischemic infarction. Normal visualized paranasal sinuses. CT/Brain/Head without Contrast IMPRESSION: Normal unenhanced CT scan of the brain. Electronically Signed: Yonny Jones, at 14:57 EDT , Service support ,
--- NOTE | 2019-12-08 13:38 | RAD_ITS ---
STUDY: X-RAY CHEST REASON FOR EXAM: Male, 34 years old. FATIGUE, LIGHT-HEADED, DIZZY X 1 WK. TECHNIQUE: AP and lateral views of the chest. COMPARISON: Comparison is made with prior study dated June 21, 2010. FINDINGS: The lungs are clear and expanded. There is no demonstrated pleural abnormality. Normal size heart. Normal mediastinum and torres. Normal visualized pulmonary arteries. Normal visualized aortic arch and descending thoracic aorta. Normal visualized thoracic spine. Normal visualized ribs, clavicles, and shoulders. There is no demonstrated abnormality of the visualized soft tissue structures of the upper abdomen. RAD/Chest PA and Lateral IMPRESSION: Normal x-ray examination of the chest. Electronically Signed: Yonny Jones, at 14:58 EDT , Service support ,
[2019-12-08] MEDS: 0.9% Normal Saline 1,000 ML 1000 ML IV (14:02)
[2019-12-08 14:16] LABS: Bacteria 0 SEEN /hpf (None Seen); Mucous, Urine 0 SEEN /hpf (<or=2+); Red Blood Cells-Urine 0 SEEN /hpf (0-5); Squamous Epithelial Cells - UA 0 SEEN /hpf (0-5); White Blood Cells 0 SEEN /hpf (0-5)
[2019-12-08 14:21] LABS: Color, Urine Yellow (Yellow); Glucose, Dipstick Normal (Normal); Ketone-Dipstick Negative (Negative); Leukocyte Esterase-Dipstick Negative /ul (Negative); Nitrite-Dipstick Negative (Negative); Occult Blood-Urine Negative /ul (Negative); Protein-Dipstick Negative (Negative); Specific Gravity, Urine 1.015 (1.002-1.030); Urine Bilirubin Dipstick Negative (Negative); Urine Clarity Clear (Clear); Urine Urobilinogen Normal (Normal); Urine pH 6.5 (5.0 - 8.0)
--- NOTE | 2019-12-08 14:32 | ED.VIS.GEN ---
History of Present Illness Chief Complaint: General Illness Informant: Patient Onset: Days Context: Gradual Onset Timing: Continuous Narrative: Patient is a 34-year-old male presenting with headache, insomnia and eyestrain. Patient states he has been able to sleep for the last week. He is developed a headache in the front of his head. He states it is throbbing in nature. He also feels that his eyes are strained. He states it feels like he has been looking at a small screen for a long amount of time. Patient states he has been very nervous about the current coronavirus pandemic. He states he is been more shaky lately. He has had nausea with dry heaves but no actual vomiting. He tried to take Tylenol with no relief of his headache. He is not had anything today. Patient does live at a senior living with 2 other members. He states he is been compliant with all of his psychiatric medications. He denies any constitutional symptoms such as fever, vision changes, cough, chest pain, diarrhea, abdominal pain, urinary symptoms, rash or skin changes. States he does not feel homicidal or suicidal. Patient sees psychiatry/counseling through the crisis center. Past Medical History - Allergies and Home Meds Allergies/Adverse Reactions: Allergies No Known Allergies Allergy (Verified 12/08/19 12:59) Primary Care Physician: Redd Baeza DO [Primary Care Provider] - Past Medical History: - - Anxiety, paranoia Surgical History: no surgical history Lives: - - senior living Smoking Status: Current every day smoker Review of Systems General: Reports: Malaise, - - Insomnia. Denies: Chills, Fever, Sweats Eyes: Reports: - - eye discomfort. Denies: Visual changes - bilaterally, Diplopia ENT: Denies: Rhinorrhea, Sore throat Cardiovascular: Denies: Chest pain, Palpitations Respiratory: Denies: Dyspnea, Cough, Dyspnea on exertion Gastrointestinal: Reports: Nausea. Denies: Abdominal pain, Vomiting, Diarrhea, Melena, Hematochezia Genitourinary: Denies: Dysuria, Hematuria, Frequency Musculoskeletal: Denies: Back pain, Extremity Pain Skin: Denies: Rash, Wounds Neurological: Denies: Headache, Weakness, Numbness Psych: Reports: Anxiety. Denies: Depression, Suicidal thoughts, Suicidal ideations Physical Exam Vital Signs/Narrative: Vital Signs Temp Pulse Resp BP Pulse Ox 12/08/19 13:00 96.9 F L 88 16 145/92 H 98 Inital Vital Signs reviewed: Yes General: Well nourished, Well developed, No Acute Distress Head: Normocephalic, Atraumatic Eyes: Perrl, EOMI, - - No nystagmus. Negative for: Pale conjunctiva, Scleral icterus ENT: Moist mucous membranes, No rhinorrhea, TM's clear Neck: Supple, Nontender, No JVD, - - No nuchal rigidity, no meningeal signs Cardiovascular: Regular rate, Regular rhythm, No murmurs Respiratory: No distress, CTA bilaterally, Chest nontender Abdomen: Soft, Nontender, Nondistended, Normal bowel sounds Back: Nontender, Normal Inspection Extremities: Nontender, No edema Skin: Normal color, No rash Neurological: Alert, Oriented x3, Cranial nerves II-XII grossly intact, Normal Strength, Normal Sensation, Normal Gait, - - Normal [id number]. Negative for: Weakness, Left side facial droop, Right side facial droop Psychological: Normal affect, Normal Mood Diagnostic/Tx/Re-eval Chest X-Ray - ED: 2 View, Read by ED Physician, Read by Radiologist, No Acute Disease Clinical Impression(s) from Imaging Studies Brain CT 12/08/19 13:38 IMPRESSION: Normal unenhanced CT scan of the brain. Electronically Signed: Yonny Jones, at 14:57 EDT , Service support , Chest X-Ray 12/08/19 13:38 IMPRESSION: Normal x-ray examination of the chest. Electronically Signed: Yonny Jones, at 14:58 EDT , Service support , Laboratory Data 12/08/19 12/08/19 12/08/19 14:05 15:08 15:08 WBC 10.5 RBC 5.71 Hgb 16.4 Hct 49.1 MCV 86.0 MCH 28.7 MCHC 33.4 RDW Std Deviation 40.9 RDW Coeff of Melquiades 13.2 Plt Count 250 MPV 10.3 Immature Gran % (Auto) 0.200 Neut % (Auto) 64.5 Lymph % (Auto) 26.1 [place] % (Auto) 5.7 Eos % (Auto) 2.8 Baso % (Auto) 0.7 Absolute Neuts (auto) 6.7 Absolute Lymphs (auto) 2.73 Nucleated RBC % 0 Sodium 140 Potassium 3.9 Chloride 107 Carbon Dioxide 26.0 Anion Gap 7 BUN 10 Creatinine 0.80 Estim Creat Clear Calc 138.57 Est GFR (MDRD) Af Amer 142 Est GFR (MDRD) Non-Af 117 BUN/Creatinine Ratio 12.5 Glucose 88 Calcium 9.2 Urine Color Yellow Urine Clarity Clear Urine pH 6.5 Ur Specific [place] 1.015 Urine Protein Negative Urine Glucose (UA) Normal Urine Ketones Negative Urine Occult Blood Negative Urine Nitrite Negative Urine Bilirubin Negative Urine Urobilinogen Normal Ur Leukocyte Esterase Negative Urine RBC 0 SEEN Urine WBC 0 SEEN Ur Squamous Epith Cells 0 SEEN Urine Bacteria 0 SEEN Urine Mucus 0 SEEN - Medical Decision Making Patient is evaluated for headache, eye discomfort and insomnia. He appears nontoxic in no acute distress. He has no meningeal signs. His vital signs are normal. He does not have any signs or symptoms consistent with meningitis. As patient is having a headache and vision symptoms I did do a head CT. This is negative. Patient has a normal neurologic exam. His NIH is 0. There is no obvious source of infection including pneumonia, urinary tract infection and does not have any significant electrolyte abnormalities. CBC, BMP and urinalysis are normal. Patient does admit that he has been more anxious lately because of the coronavirus pandemic. It is possible that his symptoms are more anxiety related. Patient does not appear manic. He states he is been compliant with his medications. I do feel that patient is safe to go back to his senior living. He does not appear to have posing danger to himself or to others. Patient is evaluated by case management in the ER. They do set up an appointment tomorrow with crisis so he can talk more about how he is feeling. Patient be started on melatonin to hopefully help with his insomnia. Patient is counseled on signs and symptoms requiring return to the emergency room. Patient verbalizes agreement and understand this plan. Patient discharged home in stable and improved condition. ED Disposition - Plan for ED Patient: Disposition: Home or Assisted Living Diagnosis: Headache, Insomnia Instructions: ED CEPHALGIA Tension Headache, ED Insomnia Prescriptions: Melatonin 5 mg PO QHS #14 tab Prescription Printed Referrals: Redd Baeza DO [Primary Care Provider] -
--- NOTE | 2019-12-08 15:01 | CM.ED ---
Social Work Consult: Discharge Planning Informant: Dr. Vivi Trinidad requesting for a crisis follow-up call to be established for patient for tomorrow. Met with patient in room. Introduced self as well as social work msw role. Patient stating to be overwhelmed with current health crisis. Patient stating to be anxious about getting sick. Patient stating to currently live in a assisted with two other house mates. Patient currently received services through the counseling center and sees Tish Pedraza N.P monthly. Patient stating that last appointment with Patricia was 11/30/2019. Patient diagnosed with anxiety. Patient denies any active or recent suicidal thoughts or plans. Patient stating to have not slept for the past night due to anxiety. Patient is agreeable to crisis follow up phone call for tomorrow. Telephone call to Evan Burger. Follow up phone call set up for tomorrow, December 09, 2019 at 10:00am with Ariella. Provided patient with appointment reminder. Updated Dr. Trinidad on time and date of follow up call. Rubén ROBLERO, RENE
[2019-12-08 15:19] LABS: Absolute Lymphocyte Count 2.73 X10^3/uL (0.83-4.51); Absolute Neutrophil Count 6.7 X10^3/uL (2.0-7.7); Basophil# 0.07 X10^3/uL; Basophil% 0.7 % (0-1); Eosinophil# 0.29 X10^3/uL; Eosinophils% 2.8 % (0-5); Hematocrit 49.1 % (40-54); Hemoglobin 16.4 g/dL (13.0-16.5); Lymphocyte # 2.73 X10^3/ul (4.0); Lymphocyte % 26.1 % (19-41); Mean Corp Hgb Conc 33.4 g/dL (32-36); Mean Corpuscular Hgb 28.7 pg (27.0-32.0); Mean Platelet Vol. 10.3 fl (6.2-12.0); Monocyte% 5.7 % (0-10); NRBC Flagged by Analyzer 0 % (0-5); Neutrophil # 6.74 X10^3/uL (2.7-7.7); Neutrophil % 64.5 % (47-70); Platelet Count 250 K/mm3 (150-450); RBC Distribution Width CV 13.2 % (11.6-14.6); RBC Distribution Width SD 40.9 fl (35.1-43.9); Red Blood Count 5.71 M/mm3 (4.6-6.2); White Blood Count 10.5 K/mm3 (4.4-11.0)
[2019-12-08 15:30] LABS: Anion Gap 7 (5-15); BUN 10 mg/dL (7-18); BUN/Creat Ratio 12.5 RATIO (10-20); Calcium,Total 9.2 mg/dL (8.5-10.1); Chloride 107 mmol/L (98-107); EST Glomerular Filtration Rate 117 mL/min (>60); Est Glom Filt Rate - Afr Amer 142 mL/min (>60); Estimated Creatinine Clearance 138.57 ml/min; Glucose 88 mg/dL (74-106); Potassium 3.9 mmol/L (3.5-5.1); Sodium Level 140 mmol/L (136-145)
[2019-12-08] MEDS: Ketorolac 15 MG/ML Vial IV (15:39)
== END 2019-12-08 16:24 | disposition home or self-care (01) ==
LOC: ED 13:38
PROVIDERS: Emergency Provider Emergency Medicine; PCP Student in an Organized Health Care Education/Training Program
DX: G47.00 Insomnia, unspecified (principal); R51 Headache; F17.200 Nicotine dependence, unspecified, uncomplicated
CPT/HCPCS: 36415; 70450; 71046; 80048; 81001; 85025; 96361; 96374; 99282; J7030; A4216

== ENCOUNTER → 2020-02-11 | Outpatient (CLI) | payer MEDICAID, SELFPAY | END | disposition home or self-care (01) | LOC: LABSPEC 11:22 | PROVIDERS: PCP Student in an Organized Health Care Education/Training Program | DX: N50.811 Right testicular pain (principal); Z11.59 Encounter for screening for other viral diseases | CPT/HCPCS: 87635; C9803; G2023; U0003 ==

== ENCOUNTER 2020-02-15 10:22 | Emergency (ER) | payer MEDICAID, SELFPAY ==
[2020-02-15 10:22] VITALS: BP 156/107; PULSE 95; RESP 17; TEMP 36.8; O2SAT 95; BMI 27.8
--- NOTE | 2020-02-15 10:33 | ED.DCSUM_ITS ---
- ER Visit Summary Date of Service: 02/15/20 Chief Complaint: [Homicidal ideations] History of Present Illness: The patient is a 34 M [presents to the emergency department with thoughts of wanting to hurt others for several weeks. Patient currently in a intermediate but is run by the [facility]. Patient told his psychiatrist about 2 weeks ago that he was having thoughts of wanting to hurt others who advised him that he should tell the staff when he was feeling this way. Patient states over last 3 or 4 days he has had increased thoughts of this and told the staff today. Patient complains of auditory hallucinations that tell him to hurt others but has no distinct plan on what he would do. He does not have any particular individual in mind. He told staff that if he were to act on these thoughts that things would be bad. Patient denies any suicidal ideation. Patient denies recent illness. He has been compliant with his medications.] Physical Examination: [HEENT-PERRLA, EOMI. Cranial nerves II through XII grossly intact. TMs clear. Mucous membranes moist. No adenopathy. Cardiovascular-regular rate and rhythm without murmur or ectopy Lungs-clear to auscultation, chest wall stable without crepitus or subcu emphysema Abdomen-normoactive bowel sounds, soft, nontender, no rebound or rigidity, no peritoneal signs. Extremities-intact ?4, normal range of motion, normal pulses, atraumatic] Test Results: [CBC with it was normal. Chemistries unremarkable. Toxicology screen was positive for marijuana. EtOH was negative.] Emergency Department Course and Treatment: [Patient was seen by social services analyst in emergency department and was felt patient would benefit from hospitalization for progression of homicidal ideation.] Treatment Plan: [Transfer to psychiatric facility] Disposition: [Transfer] Impression: [Homicidal ideation Psychosis] This note was generated with [employer] dictation software. It may contain incorrect words, spelling, and punctuation that were not noted in review of the chart prior to signing ED Disposition - Plan for ED Patient: Referrals: Redd Baeza DO [Primary Care Provider] -
[2020-02-15 10:58] LABS: Absolute Neutrophil Count 6.4 X10^3/uL (2.0-7.7); Basophil# 0.09 X10^3/uL; Basophil% 0.9 % (0-1); Eosinophil# 0.34 X10^3/uL; Eosinophils% 3.3 % (0-5); Hemoglobin 15.9 g/dL (13.0-16.5); Lymphocyte % 26.3 % (19-41); Mean Corp Hgb Conc 33.1 g/dL (32-36); Mean Corpuscular Volume 90.6 fL (80-94); Mean Platelet Vol. 10.3 fl (6.2-12.0); Monocyte# 0.74 X10^3/uL; Monocyte% 7.2 % (0-10); NRBC Flagged by Analyzer 0 % (0-5); Neutrophil # 6.38 X10^3/uL (2.7-7.7); Neutrophil % 62.1 % (47-70); Platelet Count 265 K/mm3 (150-450); RBC Distribution Width CV 14.4 % (11.6-14.6); RBC Distribution Width SD 46.7 fl (35.1-43.9); White Blood Count 10.3 K/mm3 (4.4-11.0)
[2020-02-15 11:12] LABS: Amphetamine Urine VISTA NEGATIVE (<1000 ng/mL); Barbiturate Urine VISTA NEGATIVE (< 200 ng/mL); Benzodiazepine Urine VISTA NEGATIVE (< 200 ng/mL); Cocaine Urine VISTA NEGATIVE (< 300 ng/mL); Ecstacy Urine VISTA NEGATIVE (< 500 ng/mL); Methadone Urine VISTA NEGATIVE (< 300 ng/mL); PCP Urine VISTA NEGATIVE (< 25 ng/mL); THC Urine VISTA POSITIVE (< 50 ng/mL); Vista UDS pH Range 6
[2020-02-15 11:13] LABS: Anion Gap 8 (5-15); BUN 16 mg/dL (7-18); BUN/Creat Ratio 21.1 RATIO (10-20); Chloride 107 mmol/L (98-107); Creatinine, Serum 0.76 mg/dL (0.70-1.30); EST Glomerular Filtration Rate 125 mL/min (>60); Est Glom Filt Rate - Afr Amer 151 mL/min (>60); Estimated Creatinine Clearance 145.87 ml/min; Glucose 101 mg/dL (74-106); Potassium 4.3 mmol/L (3.5-5.1); Sodium Level 139 mmol/L (136-145)
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
--- NOTE | 2020-02-15 11:52 | CM.ED ---
Social Work Telephone call to [facility]ate Kinc[facility]. Referral made. Clinical information faxed. Renate confirming open beds and accepting patient insurance. Pending review. Rubén ROBLERO, RENE
--- NOTE | 2020-02-15 12:39 | CM.ED ---
Social Work Telephone call from [facility], patient is accepted pending written confirmation that the correction with accept patient back after discharge. Telephone call to patient casework specialist, Aletha ([phone]). This administrator social welfare informing Aletha of above information. Aletha to contact Samina, Safety Counselor about obtaining written statement. Aletha or Samina to call this administrator social welfare back. Rubén ROBLERO, RENE
[2020-02-15] MEDS: busPIRone 5 MG Tablet 10 MG PO (12:40)
--- NOTE | 2020-02-15 14:09 | CM.ED ---
Social Work Telephone call fromAletha. Provided fax number. Was able to obtain written statement stating that [facility]. Telephone call from Christa Larkin. Confirming above information. Faxed [place] and above statement received from [facility]. Patient accepted to [facility]. Nurse to nurse report: [phone]. Patient admitted to 1400. Admitting is Dr. Gonzalez. Updated Dr. Kaba, nursing staff and patient on above information. Rubén Long MSW, RENE
[2020-02-15 14:22] VITALS: BP 148/91; PULSE 78; RESP 16; O2SAT 98
--- NOTE | 2020-02-15 14:41 | NURSING ---
PHYSICANS ARE 3 HRS OUT.
--- NOTE | 2020-02-15 14:46 | NURSING ---
SEDRICK CALLED TAWANA. ETA IS 90 MIN
[2020-02-15] MEDS: LORazepam 2 MG/ML Syringe 1 MG IM (14:57)
[2020-02-15 15:15] VITALS: BP 148/78; PULSE 81; RESP 16; O2SAT 98
== END 2020-02-15 16:12 ==
PROVIDERS: Emergency Provider Emergency Medicine; PCP Student in an Organized Health Care Education/Training Program
DX: F29 Unspecified psychosis not due to a substance or known physiological condition (principal); R45.850 Homicidal ideations; Z72.0 Tobacco use
CPT/HCPCS: 80048; 80307; 80320; 85025; 96372; 99284; G0480

== ENCOUNTER 2020-04-03 14:43 | Emergency (ER) | payer MEDICAID, SELFPAY ==
[2020-04-03 14:44] VITALS: BP 126/73; PULSE 74; RESP 15; TEMP 37.1; O2SAT 98; BMI 33.8
[2020-04-03 15:39] LABS: Absolute Lymphocyte Count 2.99 X10^3/uL (0.83-4.51); Absolute Neutrophil Count 5.3 X10^3/uL (2.0-7.7); Basophil# 0.09 X10^3/uL; Eosinophil# 0.38 X10^3/uL; Eosinophils% 4.1 % (0-5); Hematocrit 49.4 % (40-54); Hemoglobin 16.2 g/dL (13.0-16.5); Lymphocyte # 2.99 X10^3/ul (4.0); Lymphocyte % 31.9 % (19-41); Mean Corp Hgb Conc 32.8 g/dL (32-36); Mean Corpuscular Hgb 29.7 pg (27.0-32.0); Mean Corpuscular Volume 90.5 fL (80-94); Mean Platelet Vol. 10.4 fl (6.2-12.0); Monocyte% 6.4 % (0-10); NRBC Flagged by Analyzer 0 % (0-5); Neutrophil # 5.27 X10^3/uL (2.7-7.7); Neutrophil % 56.2 % (47-70); Platelet Count 268 K/mm3 (150-450); RBC Distribution Width CV 13.7 % (11.6-14.6); RBC Distribution Width SD 45.4 fl (35.1-43.9); Red Blood Count 5.46 M/mm3 (4.6-6.2); White Blood Count 9.4 K/mm3 (4.4-11.0)
[2020-04-03 15:56] LABS: Anion Gap 7 (5-15); BUN 11 mg/dL (7-18); BUN/Creat Ratio 14.2 RATIO (10-20); Calcium,Total 8.9 mg/dL (8.5-10.1); Chloride 109 mmol/L (98-107); Creatinine, Serum 0.77 mg/dL (0.70-1.30); EST Glomerular Filtration Rate 122 mL/min (>60); Est Glom Filt Rate - Afr Amer 148 mL/min (>60); Estimated Creatinine Clearance 143.97 ml/min; Glucose 88 mg/dL (74-106); Sodium Level 141 mmol/L (136-145)
--- NOTE | 2020-04-03 15:57 | ED.DCSUM_ITS ---
- ER Visit Summary Date of Service: 04/03/20 Chief Complaint: Depression and suicidal ideation History of Present Illness: The patient is a 34 M who presents with depression and suicidal ideation that began today. Patient states he started hearing voices this morning. Patient states the voices were telling him to hurt himself. They were telling him to cut himself. Patient also felt like he may hurt somebody else. Patient had no plans for homicidal ideation. Patient was just concerned that he may hurt someone around him. Physical Examination: Vital signs are stable. Patient is afebrile. Patient is in no acute distress. Oral mucosa is pink and moist. Neck is supple. Trachea is midline. There is no JVD. Heart was regular rate and rhythm. Lungs are clear and equal bilaterally. Abdomen is soft. Bowel sounds are normal. There is no tenderness. Cranial nerves II through XII are intact. There are no focal motor or sensory deficits noted. Patient does have a depressed mood and a flat affect. Patient admits to suicidal and homicidal ideations. Patient states he has a plan to cut himself. Test Results: CBC and basic metabolic profile were within normal limits. Urine tox urine was positive cannabinoids. Serum alcohol level was normal. Emergency Department Course and Treatment: Patient was medically cleared. Case was discussed with social work. They agreed the patient would benefit from inpatient treatment. They will attempt to place the patient in a psychiatric facility. Patient understands and is agreeable with the plan. All questions were answered. Disposition: Transfer to psychiatric facility Impression: 1. Depression with suicidal ideation 2. Auditory hallucinations This note was generated with [employer] dictation software. It may contain incorrect words, spelling, and punctuation that were not noted in review of the chart prior to signing ED Disposition - Plan for ED Patient: Disposition: Psychiatric Hospital or Unit Diagnosis: Depression with suicidal ideation, Auditory hallucinations Referrals: Redd Baeza DO [Primary Care Provider] -
[2020-04-03 16:13] LABS: Alcohol, Blood (Medical)-Serum < 3.0 mg/dL
[2020-04-03 16:30] LABS: Amphetamine Urine VISTA NEGATIVE (<1000 ng/mL); Barbiturate Urine VISTA NEGATIVE (< 200 ng/mL); Benzodiazepine Urine VISTA NEGATIVE (< 200 ng/mL); Cocaine Urine VISTA NEGATIVE (< 300 ng/mL); Ecstacy Urine VISTA NEGATIVE (< 500 ng/mL); Methadone Urine VISTA NEGATIVE (< 300 ng/mL); PCP Urine VISTA NEGATIVE (< 25 ng/mL); THC Urine VISTA POSITIVE (< 50 ng/mL); Vista UDS pH Range 6
--- NOTE | 2020-04-03 17:16 | CM.ED ---
Social Work Consult: Suicidal Informant: Dr. Batista Chief Complaint: Patient reports to have active auditory hallucinations that are instructing patient to stab self with scissors. Marital/Social history: Single. Own guardian Living Situation: [facility] with others. Support/Resources: [facility] Follows with Megan John for psychiatric services. Aletha for Case Management services. History: None Education/Employment History: Disability. Reports no concerns with comprehension/understanding. Mental Health Treatment/History: Schizophrenia, Anxiety, Depression. Reports to take medication to manage mental health and to be compliant with medications. Patient with history of psychiatric placement. Triggers/Stressors: Patient states to have been thinking about patient mother passing. Patient mother in 2010 from an overdose. Coping Skills: Working out, listening to music, sitting outside, watching T.V. Abuse Issues: None Substance Abuse Hx: Reports to smoke tobacco daily (1ppd). Patient states to have used THC in the past but ?it has been awhile.? Risk to Self/Others: Patient reports that voices are telling patient to harm self. Patient states to that patient ?might act? on voices. Patient states voices are telling patient to cut self with scissors. Patient states to have scissors in the home. Patient states ?I felt like grabbing the scissors.? Patient states to be fearful of what the voices will tell patient to do and that patient will act on what the voices are saying. Mental Status Exam: A&Ox3 Appearance/General Behavior: Clean. Calm. Mood/Affect: Depressed. Sad. Communication Pattern: Responds to questions. Thought Process: Reports auditory hallucinations as noted above. Judgement: Fair Assessment: Met with patient in room. Introduced self and psych social worker role. Patient agreeable to speaking with this psych social worker. Patient states to be concerned about the thoughts that patient is currently having to harm self. Patient states to feel ?overwhelmed? with the thoughts. Patient states to have been feeling ?alone.? Patient states to have been at home and called nurse Griffith Collaborating with Dr. Batista, plan is for patient to be transitioned to inpatient psychiatric hospital as patient has active thoughts of harming self with plan and unsure about intent. PLAN: Transfer to inpatient psychiatric facility. Rubén ROBLERO, RENE
--- NOTE | 2020-04-03 17:39 | CM.ED ---
Social Work Referral faxed to [facility] Larissa Deal. Pending approval. Rubén Long MSW, RENE
[2020-04-03] MEDS: LORazepam 0.5 MG Tablet PO (19:35)
[2020-04-03 20:39] VITALS: BP 133/86; PULSE 77; RESP 14; O2SAT 98
--- NOTE | 2020-04-03 21:32 | CM.ED ---
[facility]. Admitting is Dr. Sifuentes. Nurse to call report to [phone]. Updated medical team and patient. Rubén Long MSW, RENE
--- NOTE | 2020-04-03 21:52 | CM.ED ---
Social Work [place] faxed to [facility]. Rubén Long QUENCHING CAR OPERATOR, RENE
--- NOTE | 2020-04-03 22:04 | ED.RN ---
attempted to call report. asked to call back in 30 minutes due to a code at receiving facility. shalonda paul rn [phone]
[2020-04-03 22:06] VITALS: BP 127/72; PULSE 75; RESP 15; O2SAT 98
--- NOTE | 2020-04-03 22:09 | CM.ED ---
Social Work Responding to Stroke Alert. No Family present at this time. Patient talking with medical team. Patient family on the way. Rubén ROBLERO, RENE
--- NOTE | 2020-04-04 00:32 | ED.RN ---
second attempt made to call report. nereida Price asked for a call back number. department phone number was given. shalonda paul rn [phone]
== END 2020-04-03 22:06 ==
PROVIDERS: Emergency Provider Emergency Medicine; PCP Student in an Organized Health Care Education/Training Program
DX: R45.851 Suicidal ideations (principal); F32.9 Major depressive disorder, single episode, unspecified; R44.0 Auditory hallucinations; Z72.0 Tobacco use
CPT/HCPCS: 36415; 80048; 80307; 80320; 85025; 99284; G0480

== ENCOUNTER 2021-06-07 12:00 | Outpatient (RCR) | payer MEDICAID, SELFPAY ==
--- NOTE | 2021-04-16 08:17 | HP.PTEVAL_ITS ---
Patient's Visit Information CHRISTINA RAMOS is a 35 year old M referred to Physical Therapy by Dr. Maurilio Aguirre DC with a diagnosis of Lumbar strain. Date of Evaluation: 04/05/21 Physical Therapist: Abdiaziz Castellanos DPT - Visit Plan Frequency: 2x /Week Duration: 6 Weeks Plan: Start with general mobility in aquatic setting progressing to core stability/strengthening, lumbar ROM as tolerated (with emphasis into extension). Add in HS and hip flexor stretching to allow for proper pelvic positioning. - Subjective Pt. is here today for his initial evaluation with diagnosis of lumbar sprain. Pt. reports having pain in the center of his back for ~1-2 years. He reports no mech of injury. He denies N/T or myotomal weakness in either LE. Pt. was seen by Dr. Aguirre who reports was helpful, but is still having some symptoms. Christina denies radiating symptoms, but reports symptoms are pretty much isolated to lumbar spine (across). Increases pain: standing, walking, doing dishes, lifting. Decreases pain: sitting, lying on his side. He reports no previous injury or surgical intervention to lumbar spine. Pt. is not working. He tends to stay home most of the time, with more sedentary life style. Pt. is hopeful to reduce his symptoms in order to get back to all recreational activities and household activities with increased tolerance. - Pain Lumbar spine Pain Intensity (Out of 10): 3 Pain Intensity Range: 2, 8 - Objective POSTURE: Pt. has sway back posture in stance. Pt. is over wt. as well. Rounded shoulders with increased thoracic kyphosis. PALAPTION: Pt. has tenderness along B lumbar erector spinae, and worst pain extending into B SI regions. NEURO: Pt. has normal sensation of BLEs, normal DTR of B LEs. Pt. is able to rise on heels and toes without issues. ROM: Lumbar spine: flexion min loss increase NE, ext mod/max loss increase NW, SB min loss increase NW, rotation min loss increase NW. Pt. has tight B HS and hip flexors. MMT: Pt. has 5/5 strength throuhgout B distal LE musculature. B hips: flexion 4/5 increase NW, abd 4/5 increase NW, ext 4+/5 NE. Core strength- poor.. GAIT: Pt. has reduced arm swing, reduced B step length. He has general flexed posture. Pt. has difficulty walking with increased erect posture. - Balance/Special Test Scores Oswestry Low Back Score: 29 - Goals Goal 1:: LTG: Pt. to be I with HEP. Goal Time Frame: 4-6 Weeks Goal 2:: STG: Pt. to ambulate throughout home distances without increase in symptoms. Goal Time Frame: 2-4 Weeks Goal 3:: LTG: Pt. to ambulate 1000'+ with 0-2/10 pain in lumbar spine. Goal Time Frame: 4-6 Weeks Goal 4:: LTG: Pt. to have increased lumbar ROM to full with 0-2/10 pain. Goal Time Frame: 4-6 Weeks Goal 5:: LTG: Pt. to have increased B hip and core strength increased by 1/2 grade throughout effected musculature. Goal Time Frame: 4-6 Weeks Goal 6:: LTG: Pt. 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 Goal Time Frame: 4-6 Weeks - Rehabilitation Potential Physical Therapy Diagnosis: Pt. has signs and symptoms consistent with lumbar strain. Pt. has limited ROM and marked core weakness. Pt. does not appear to have any neurological symptoms this date. I would like to work on his lumbar mobility and strength of B hips and core to improve postural motor control and reduce stress to lumbar spine. Rehabilitation Potential: Good - Anticipated Interventions Patient/Client Instruction: Educate patient on: Condition, Plan of Care, Risk Factors, Benefits of Fitness Program For the Purpose of:: To improve decision making, To facilitate caregiver knowledge, To improve self management, To prevent re-injury, To improve ability to perform tasks related to life management Therapeutic Exercise to Include: Strength training, Power training, Coordination, Postural training, Flexibilty training, In an aquatic setting, Passive ROM, Active ROM, Dynamic Lumbar Stabilization, Lan Exercises For the Purpose of:: To decrease pain, To decrease swelling/inflammation, To increase ROM, To improve nutrient delivery to tissue, To increase oxygenation perfusion, To decrease level of supervision to perform tasks, To improve ability of physical actions for home/community/work/leisure, To improve gait and locomotor functions, To improve health of tissue, To decrease soft tissue restriction, To increase flexibility/ROM, To improve endurance Thank you for the opportunity to evaluate your patient. For Medicare and Medicare HMO plans, please review the plan of care and approve it. It will need to be FAXED BACK to us at [phone] for Medicare purposes. For Medicare only, by signing this I certify the plan of care. Please let me know if there are questions or concerns regarding this plan of care. Physician Signature: Date:
--- NOTE | 2021-06-07 13:01 | HP.PTDCSUM_ITS ---
It has been my pleasure to treat CHRISTINA RAMOS referred by Dr. Maurilio Aguirre DC, with the diagnosis of Lumbar strain for a total of 8 visit(s). Discharge Date: 06/07/21 Please see the following information for a summary of their discharge status. Subjective: Pt. reports having some temporarily relieve with some of his home stretching, but overall about the same. He denies N/T in either. Standing and walking is worse. Lumbar spine Pain Intensity (Out of 10): 5 % Improvement: 25 Objective/Function: ROM: Pt. has decreased lumbar ROM, ext mod/max loss increase NW, flexion min loss NE, SB nil loss NE, rotation min loss bilat increase NW. Pt. has normal hip ROM. He reports being compliant with stretching at home, but no press tender long goods relief. He did notice some short term relief. Pt. has 4+/5 strength of BLEs, poor core strength. Pt. presents with stenotic like pain with out radicular symptoms. He has pain along L4-S1 region. Normal myotomes, normal DTR of BLEs. He did not make much progress with pain relief with aquatic therapy. At this point in time I would like him to follow up with primary care about his back to determine if further imaging or pain management is appropriate. Goal 1:: LTG: Pt. to be I with HEP. Goal Progress: Goal Met Goal 2:: STG: Pt. to ambulate throughout home distances without increase in symptoms. Goal Progress: Goal Met Goal 3:: LTG: Pt. to ambulate 1000'+ with 0-2/10 pain in lumbar spine. Goal Progress: Progressing Goal 4:: LTG: Pt. to have increased lumbar ROM to full with 0-2/10 pain. Goal Progress: Progressing Goal 5:: LTG: Pt. to have increased B hip and core strength increased by 1/2 grade throughout effected musculature. Goal Progress: Progressing Goal 6:: LTG: Pt. 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 Goal Progress: Not Progressing Plan: Pt. to be DC from PT at this point in time. Discharge Comments: Pt. was treated in aquatic setting for his low back pain. The focus on one core stability and lumbar ROM. He was also given stretches to complete at home. I would like him to follow up with his PCP, Aryan for further imaging and/or discuss how to progress. Pt. consents. If there are questions or concerns regarding this patient's physical therapy, please feel free to call me at [phone]. Thank you for the referral of this patient. Sincerely, Abdiaziz Castellanos, DPT Balance/Gait/Functional tests - Balance/Special Test Scores Oswestry Low Back Score: 24
== END 2021-06-07 13:21 | disposition home or self-care (01) ==
LOC: PT 12:00
PROVIDERS: PCP Student in an Organized Health Care Education/Training Program; Referring Provider Chiropractor; Visit Provider Chiropractor
DX: S39.012D Strain of muscle, fascia and tendon of lower back, subsequent encounter (principal); X58.XXXD Exposure to other specified factors, subsequent encounter
CPT/HCPCS: 97113; 97161; 97164

== ENCOUNTER 2021-10-16 14:41 | Emergency (ER) | payer MEDICAID, SELFPAY ==
[2021-10-16 14:42] VITALS: BP 135/97; PULSE 101; RESP 18; TEMP 35.7; O2SAT 95; BMI 34.8
--- NOTE | 2021-10-16 15:07 | EX.ED.GENINJ ---
HPI History of Present Illness Chief Complaint: Fall Informant: patient Onset/Context/Timing Onset: Today Mechanism/Context: Fall Current Severity: Mild Maximum Severity: Mild Narrative Narrative: Patient presents after injuring his right ear. He was walking on a stone ice covered sidewalk and fell. He has had prior surgery to his right ear. He now has a laceration on the posterior surface. He denies loss of consciousness. No neck pain. He is not on anticoagulants. 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 Home Medications buspirone 10 mg PO TID 02/15/20 [History Last Taken Unknown] olanzapine 20 mg PO QHS 02/15/20 [History Last Taken Unknown] sertraline 100 mg PO BREAKFAST 02/15/20 [History Last Taken Unknown] cephalexin 500 mg PO Q6 #40 cap 10/16/21 [Rx Last Taken Unknown] Allergy/AdvReac Type Severity Reaction Status Date / Time No Known Allergies Allergy Verified 10/16/21 14:42 Social History Smoking Status: Current every day smoker tobacco type: cigarettes ROS ROS ED Constitutional Constitutional ED: Denies chills or fever(s) Eyes Eyes: Denies change in vision ENT ENT ED: Reports ear pain right; Denies sore throat Cardiovascular Cardiovascular: Denies chest pain Respiratory/Chest Respiratory/Chest: Denies cough or dyspnea Gastrointestinal Gastrointestinal: Denies abdominal pain, nausea or vomiting Genitourinary Genitourinary ED: Denies dysuria Musculoskeletal Musculoskeletal: Denies back pain or neck pain Integumentary Reports other Details: Right ear laceration ; Denies rash Neurologic Neurologic: Denies headache(s) or weakness Allergic/Immunologic Allergic/Immunologic ED: Denies urticaria EXAM Physical Exam Const Vital Signs: 10/16/21 14:42 10/16/21 15:21 Temperature 96.3 F L Temperature Source Temporal Pulse Rate 101 H Respiratory Rate 18 Respiratory Effort Normal Non-Labored Blood Pressure 135/97 H Blood Pressure Mean 109 Pulse Ox 95 Oxygen Delivery Method Room Air Positive well nourished and well developed General Appearance ED: well developed HEENT HEENT Narrative: 3 cm flap laceration on the posterior surface of the right ear. 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 External canal is not able to be examined. Eyes PERRL and EOMs intact bilaterally Neck full ROM Chest Wall inspection of chest normal and palpation of chest normal Resp normal respiratory effort and clear to auscultation bilaterally Cardio regular rhythm Rate: regular rate GI non-tender Palpation: soft Back/Spine normal to inspection Neuro oriented x3 Sensorium / Orientation: alert Skin Skin Narrative: Ear laceration as noted above. PROC Procedures Lacerations Right ear laceration: Length: 1.18 in Depth: Sub Q Laceration repair: Lidocaine and Local Number of Sutures/Raegan: 6 Suture Information: Vicryl, Simple and 5-0 MDM MDM Treatment and Re-Evaluation Comments:: Let was applied to the wound. Please see procedure note for repair details. Patient be placed on Keflex to prevent infection secondary to small amount of cartilage exposure. Return instructions provided. Discharge Plan Triage Chief Complaint: Fall Other Complaint: Laceration ED Provider: Erika Xavier Dx/Rx/DC Orders Clinical Impression: Laceration of ear Instructions: ED Laceration: All Closures Prescriptions: New cephalexin 500 mg capsule 500 mg PO Q6 Qty: 40 RF: 0 No Action sertraline 100 MG tablet 100 mg PO BREAKFAST RF: 0 buspirone 10 MG tablet 10 mg PO TID RF: 0 olanzapine 20 MG tablet 20 mg PO QHS RF: 0 Primary Care Provider: Redd Baeza Referrals: Redd Baeza DO [Primary Care Provider] - 1-2 Weeks Disposition Disposition: Home, Self Care
[2021-10-16] MEDS: Lidocaine/Epi/Tetracaine 50 ML 1 APPLIC TOPICAL (15:20)
[2021-10-16] MEDS: Lidocaine 1% (20 ml mdv) 20 ML Vial INFILT (15:20)
[2021-10-16] MEDS: Cephalexin 250 MG Capsule 500 MG PO (16:57)
== END 2021-10-16 17:01 | disposition home or self-care (01) ==
PROVIDERS: Emergency Provider Emergency Medicine; PCP Student in an Organized Health Care Education/Training Program; Visit Provider Emergency Medicine
DX: S01.311A Laceration without foreign body of right ear, initial encounter (principal); F17.210 Nicotine dependence, cigarettes, uncomplicated; W10.1XXA Fall (on)(from) sidewalk curb, initial encounter; Y93.01 Activity, walking, marching and hiking; Y92.9 Unspecified place or not applicable; H61.111 Acquired deformity of pinna, right ear
CPT/HCPCS: 12013; 99284

== ENCOUNTER 2021-12-12 10:59 | Outpatient (CLI) | payer MEDICAID, SELFPAY ==
--- NOTE | 2021-12-12 11:10 | MRI_ITS ---
STUDY: MR Spine Lumbar W/O Contrast 12/12/2021 2:47 PM REASON FOR EXAM: Male, 36 years old. Back pain RADICULOPATHY TECHNIQUE: MR Spine Lumbar W/O Contrast Standardized fat and water weighted pulse sequences were obtained. ml of COMPARISON: None FINDINGS: T12-L1: Loss of intervertebral disc height. There is endplate spondylosis of the vertebral body. Normal central canal and intervertebral neuroforamina. There is bilateral facet arthropathy. There is bilateral ligamentum flavum thickening. Posterior disc bulge Normal lumbar lordosis. There is no substantial scoliosis. Normal conus medullaris that terminates at the L1. L1-2: Loss of intervertebral disc height. There is endplate spondylosis of the vertebral body. Normal central canal and intervertebral neuroforamina. There is bilateral facet arthropathy. There is bilateral ligamentum flavum thickening. Posterior disc bulge L2-3: Loss of intervertebral disc height. There is endplate spondylosis of the vertebral body. Normal central canal and intervertebral neuroforamina. There is bilateral facet arthropathy. There is bilateral ligamentum flavum thickening. L3-4: Loss of intervertebral disc height. There is endplate spondylosis of the vertebral body. Normal central canal and intervertebral neuroforamina. There is bilateral facet arthropathy. There is bilateral ligamentum flavum thickening. L4-5: Loss of intervertebral disc height. There is endplate spondylosis of the vertebral body. Normal central canal and intervertebral neuroforamina. There is bilateral facet arthropathy. There is bilateral ligamentum flavum thickening. L5-S1: Loss of intervertebral disc height. There is endplate spondylosis of the vertebral body. There is bilateral facet arthropathy. Narrowing of the bilateral intervertebral neuroforamina. Central disc herniation. AP diameter of the disc is 2.6 mm. Narrowing of the lateral recess. Mild spinal stenosis. Normal visualized sacral ala. Normal visualized paraspinous soft tissue structures. MRI/Spine Lumbar (Routine) IMPRESSION: L5-S1: Narrowing of the bilateral intervertebral neuroforamina. Central disc herniation. AP diameter of the disc is 2.6 mm. Narrowing of the lateral recess. Mild spinal stenosis. Electronically Signed: Yovany Goodman MD at 14:51 EDT ,
== END 2021-12-12 23:59 | disposition home or self-care (01) ==
LOC: MRI 11:00
PROVIDERS: PCP Student in an Organized Health Care Education/Training Program; Visit Provider Anesthesiology Pain Medicine
DX: M54.16 Radiculopathy, lumbar region (principal)
CPT/HCPCS: 72148

== ENCOUNTER 2022-01-15 14:01 | Emergency (ER) | payer MEDICAID, SELFPAY ==
[2022-01-15 14:02] VITALS: BP 145/105; PULSE 85; RESP 16; TEMP 37.2; O2SAT 97; BMI 41.8
--- NOTE | 2022-01-15 14:13 | EDS_ITS ---
HPI HPI - Psych History of Present Illness Chief Complaint: Suicidal Informant: patient Onset/Context/Timing Onset: Days Context: Gradual Onset Timing: Continuous Current Severity: Mild Maximum Severity: Moderate Associated Symptoms Associated Symptoms - Psych: Positive for Depressed, Suicidal Thoughts and Auditory Hallucinations Specific plan (suicidal thought): Facial lacerations Narrative Narrative: 36-year-old male who history of schizophrenia. States that he has been hearing voices for some time but recently become more intense. Today is being told by the voices to hurt himself or hurt others. He was concerned he may not be able to continue to resist what the voices are telling him. He said he did have a specific plan to cut himself in his face but he never actually made any suicide attempt today. He has in the past. He has had psychiatric admissions in the past the most recent 1 was 1 to 2 years ago. States he has been taking his medications. He follows up with the counseling center and one of their personnel is with him today. 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 Schizophrenia Home Medications benztropine 0.5 mg PO BID 01/15/22 [History Last Taken Unknown] cholecalciferol (vitamin D3) [Vitamin D3] 2,000 unit PO DAILY 01/15/22 [History Last Taken Unknown] fenofibrate nanocrystallized 145 mg PO QHS 01/15/22 [History Last Taken Unknown] hydroxyzine pamoate 50 mg PO BID 01/15/22 [History Last Taken Unknown] lamotrigine 200 mg PO DAILY 01/15/22 [History Last Taken Unknown] olanzapine 20 mg PO QHS 01/15/22 [History Last Taken Unknown] omeprazole 20 mg PO DAILY 01/15/22 [History Last Taken Unknown] sertraline 200 mg PO DAILY 01/15/22 [History Last Taken Unknown] ziprasidone HCl 20 mg PO DAILY 01/15/22 [History Last Taken Unknown] Allergy/AdvReac Type Severity Reaction Status Date / Time No Known Allergies Allergy Verified 01/15/22 14:04 Family History Mother Overdose Surgical History History of cholecystectomy History of testicular surgery Social History Smoking Status: Current every day smoker tobacco type: cigarettes alcohol intake: never substance use type: does not use ROS ROS ED ROS Narrative Denies recent illness. Review of Systems ROS Unobtainable: Denies due to encephalopathy Constitutional Constitutional ED: Denies fever(s) Eyes Eyes: Denies change in vision ENT ENT ED: Denies ear pain Cardiovascular Cardiovascular: Denies chest pain Respiratory/Chest Respiratory/Chest: Denies dyspnea Gastrointestinal Gastrointestinal: Denies abdominal pain, diarrhea, nausea or vomiting Genitourinary Genitourinary ED: Denies dysuria or hematuria Musculoskeletal Musculoskeletal: Denies myalgias Integumentary Denies rash Neurologic Neurologic: Denies headache(s) Psychiatric Psychiatric: Denies depression Endocrine Endocrinology: Denies polyuria Hematologic/Lymphatic Hematologic/Lymphatic: Denies easy bruising Allergic/Immunologic Allergic/Immunologic ED: Denies urticaria EXAM Physical Exam Narrative Exam Narrative: 36-year-old male no acute distress vital signs stable afebrile. Exam benign. H EENT exam unremarkable. Neck nontender no trauma. Lungs are clear. Heart regular rhythm rate about 80 no murmur. Chest wall nontender. Abdomen soft nontender. Moving all 4 extremities. No acute lacerations or trauma to his extremities. Neurologically is awake and alert. Cooperative. Answering questions and following commands. Neurologic exam is unremarkable. Const Vital Signs: 01/15/22 14:02 Temperature 99 F Temperature Source Temporal Pulse Rate 85 Respiratory Rate 16 Blood Pressure 145/105 H Blood Pressure Mean 118 Pulse Ox 97 Oxygen Delivery Method Room Air Positive well nourished, well developed and obese; Negative for cachectic, contractures or unkempt General Appearance ED: well developed and NAD; Negative for unkempt, cachectic, contractures or pallor Nutritional Appearance: obese; Negative for cachectic HEENT Reports moist mucous membranes normocephalic and atraumatic; Negative for trauma or tenderness Eyes PERRL and EOMs intact bilaterally General Eye ED: Negative for pale conjunctiva or scleral icterus Neck no lymphadenopathy, supple and no JVD General: Negative for tenderness Resp normal respiratory effort and clear to auscultation bilaterally Auscultation: Negative for rales, rhonchi or wheezes Cardio S1 normal heart sound, S2 normal heart sound and no murmurs Rate: regular rate Rhythm: regular rhythm GI non-tender, non-distended and no masses Auscultation: normoactive bowel sounds; Negative for hyperactive bowel sounds or hypoactive bowel sounds Palpation: soft; Negative for tender, guarding or splenomegaly Back/Spine no CVA tenderness General Back: Negative for CVA tenderness Cervical Spine: Negative for cervical spine tenderness Thoracic Spine / Upper Back: Negative for thoracic spinal tenderness Extremity normal to inspection General Extremety ED: Negative for edema or tenderness General Extremity: Negative for edema Neuro oriented x3 Sensorium / Orientation: alert, oriented to person, oriented to place and oriented to time; Negative for lethargic or stuporous Motor Exam: strength 5/5 throughout Psych mental status grossly normal, thought process normal, cooperative and affect normal; Negative for denies hallucinations, denies homicidal ideation or denies suicidal ideation Appearance: grossly normal, appropriate and well kempt; Negative for unkempt Attitude: calm, engaged, No paranoid, No withdrawn and No bizarre Activity / Motor Behavior: appropriate eye contact Speech: normal speech, No incoherent and No slurred Mood & Affect: depressed Skin General Skin Exam: Negative for jaundice or pallor Lesions: no lesions Rashes: no rashes MDM MDM MDM Narrative Medical decision making narrative: 36-year-old male history of schizophrenia depressed having auditory hallucinations to harm himself and others. Will undergo ED mental health evaluation. Screening labs to be obtained. Counseling center is already here to evaluate the patient. Discussed with the personnel at the counseling center. They agree that he needs some type of admission to a psychiatric facility and are working on placement. Patient is doing well repeat exam 3:25 PM. Lab Data Attestation: I reviewed the patient's lab results. Lab results narrative: CBC shows a white count of 10. H&H is 17 and 52. Electrolytes unremarkable gap of 8 normal BUN and creatinine. Glucose 103. Urine tox screen shows positive for opiates and cannabinoids. Alcohol is negative. Labs: Laboratory Results - last 24 hr 01/15/22 01/15/22 01/15/22 14:35 14:35 14:35 WBC 10.9 RBC 6.08 Hgb 17.0 H Hct 52.9 MCV 87.0 MCH 28.0 MCHC 32.1 RDW Std Deviation 48.1 H RDW Coeff of Melquiades 15.4 H Plt Count 313 MPV 10.4 Immature Gran % (Auto) 0.500 Neut % (Auto) 62.6 Lymph % (Auto) 23.9 [place] % (Auto) 7.3 Eos % (Auto) 4.7 Baso % (Auto) 1.0 Absolute Neuts (auto) 6.9 Absolute Lymphs (auto) 2.61 Nucleated RBC % 0 Sodium 138 Potassium 4.1 Chloride 106 Carbon Dioxide 24.0 Anion Gap 8 BUN 12 Creatinine 0.96 Estim Creat Clear Calc 113.30 Est GFR (MDRD) Af Amer 114 Est GFR (MDRD) Non-Af 94 BUN/Creatinine Ratio 12.6 Glucose 103 Calcium 9.7 Urine Opiates Screen Urine Methadone Screen Ur Barbiturates Screen Ur Phencyclidine Scrn Ur Amphetamines Screen MDMA (Ecstasy) Screen U Benzodiazepines Scrn Urine Cocaine Screen U Cannabinoids Screen Ur Drug Screen Comment Ethyl Alcohol 5.0 01/15/22 14:35 WBC RBC Hgb Hct MCV MCH MCHC RDW Std Deviation RDW Coeff of Melquiades Plt Count MPV Immature Gran % (Auto) Neut % (Auto) Lymph % (Auto) [place] % (Auto) Eos % (Auto) Baso % (Auto) Absolute Neuts (auto) Absolute Lymphs (auto) Nucleated RBC % Sodium Potassium Chloride Carbon Dioxide Anion Gap BUN Creatinine Estim Creat Clear Calc Est GFR (MDRD) Af Amer Est GFR (MDRD) Non-Af BUN/Creatinine Ratio Glucose Calcium Urine Opiates Screen POSITIVE H Urine Methadone Screen NEGATIVE Ur Barbiturates Screen NEGATIVE Ur Phencyclidine Scrn NEGATIVE Ur Amphetamines Screen NEGATIVE MDMA (Ecstasy) Screen NEGATIVE U Benzodiazepines Scrn NEGATIVE Urine Cocaine Screen NEGATIVE U Cannabinoids Screen POSITIVE H Ur Drug Screen Comment Ethyl Alcohol Discharge Plan Triage Chief Complaint: Suicidal ED Provider: Suhail Harrison Dx/Rx/DC Orders Clinical Impression: Depression, Depression with suicidal ideation, Hx of schizophrenia Prescriptions: No Action benztropine 0.5 mg tablet 0.5 mg PO BID RF: 0 lamotrigine 200 mg tablet 200 mg PO DAILY RF: 0 sertraline 100 mg tablet 200 mg PO DAILY RF: 0 hydroxyzine pamoate 50 mg capsule 50 mg PO BID RF: 0 ziprasidone HCl 20 mg capsule 20 mg PO DAILY RF: 0 omeprazole 20 mg capsule,delayed release(DR/EC) 20 mg PO DAILY RF: 0 olanzapine 20 mg tablet 20 mg PO QHS RF: 0 fenofibrate nanocrystallized 145 mg tablet 145 mg PO QHS RF: 0 cholecalciferol (vitamin D3) [Vitamin D3] 50 mcg (2,000 unit) capsule 2,000 unit PO DAILY RF: 0 Primary Care Provider: Redd Baeza Referrals: Redd Baeza DO [Primary Care Provider] - Disposition Disposition: Psychiatric Hospital or Unit
--- NOTE | 2022-01-15 14:13 | ED.RN ---
no sitter per dr gordon
[2022-01-15 14:46] LABS: Absolute Lymphocyte Count 2.61 X10^3/uL (0.83-4.51); Absolute Neutrophil Count 6.9 X10^3/uL (2.0-7.7); Basophil# 0.11 X10^3/uL; Eosinophil# 0.51 X10^3/uL; Eosinophils% 4.7 % (0-5); Hematocrit 52.9 % (40-54); Lymphocyte # 2.61 X10^3/ul (0.83-4.51); Lymphocyte % 23.9 % (19-41); Mean Corp Hgb Conc 32.1 g/dL (32-36); Mean Platelet Vol. 10.4 fl (6.2-12.0); Monocyte% 7.3 % (0-10); NRBC Flagged by Analyzer 0 % (0-5); Neutrophil # 6.85 X10^3/uL (2.7-7.7); Neutrophil % 62.6 % (47-70); Platelet Count 313 K/mm3 (150-450); RBC Distribution Width CV 15.4 % (11.6-14.6); RBC Distribution Width SD 48.1 fl (35.1-43.9); Red Blood Count 6.08 M/mm3 (4.6-6.2); White Blood Count 10.9 K/mm3 (4.4-11.0)
[2022-01-15 15:02] LABS: Amphetamine Urine VISTA NEGATIVE (<1000 ng/mL); Barbiturate Urine VISTA NEGATIVE (< 200 ng/mL); Benzodiazepine Urine VISTA NEGATIVE (< 200 ng/mL); Cocaine Urine VISTA NEGATIVE (< 300 ng/mL); Ecstacy Urine VISTA NEGATIVE (< 500 ng/mL); Methadone Urine VISTA NEGATIVE (< 300 ng/mL); PCP Urine VISTA NEGATIVE (< 25 ng/mL); THC Urine VISTA POSITIVE (< 50 ng/mL); Vista UDS pH Range 6
[2022-01-15 15:11] LABS: Anion Gap 8 (5-15); BUN 12 mg/dL (7-18); BUN/Creat Ratio 12.6 RATIO (10-20); Calcium,Total 9.7 mg/dL (8.5-10.1); Chloride 106 mmol/L (98-107); Creatinine, Serum 0.96 mg/dL (0.70-1.30); EST Glomerular Filtration Rate 94 mL/min (>60); Est Glom Filt Rate - Afr Amer 114 mL/min (>60); Glucose 103 mg/dL (74-106); Potassium 4.1 mmol/L (3.5-5.1); Sodium Level 138 mmol/L (136-145)
[2022-01-15] MEDS: Acetaminophen 500 MG Tablet 1000 MG PO (17:39)
[2022-01-15 18:40] VITALS: BP 118/87; PULSE 96; RESP 16; O2SAT 97
== END 2022-01-15 20:19 ==
PROVIDERS: Emergency Provider Emergency Medicine; PCP Student in an Organized Health Care Education/Training Program; Visit Provider Emergency Medicine
DX: F20.9 Schizophrenia, unspecified (principal); R45.851 Suicidal ideations; F32.A Depression, unspecified; Z79.899 Other long term (current) drug therapy; F17.210 Nicotine dependence, cigarettes, uncomplicated
CPT/HCPCS: 80048; 80307; 82077; 85025; 99285

== ENCOUNTER → 2022-01-31 | Outpatient (CLI) | payer MEDICAID, SELFPAY ==
[2022-01-31 13:44] LABS: Amphetamine Urine VISTA NEGATIVE (<1000 ng/mL); Barbiturate Urine VISTA NEGATIVE (< 200 ng/mL); Benzodiazepine Urine VISTA NEGATIVE (< 200 ng/mL); Cocaine Urine VISTA NEGATIVE (< 300 ng/mL); Ecstacy Urine VISTA NEGATIVE (< 500 ng/mL); Methadone Urine VISTA NEGATIVE (< 300 ng/mL); PCP Urine VISTA NEGATIVE (< 25 ng/mL); THC Urine VISTA POSITIVE (< 50 ng/mL); Vista UDS pH Range 6
== END | disposition home or self-care (01) ==
LOC: LAB 12:26
PROVIDERS: PCP Student in an Organized Health Care Education/Training Program; Referring Provider Anesthesiology Pain Medicine; Visit Provider Anesthesiology Pain Medicine
DX: F11.20 Opioid dependence, uncomplicated (principal)
CPT/HCPCS: 80307

== ENCOUNTER 2022-03-04 16:31 | Emergency (ER) | payer MEDICAID, SELFPAY ==
[2022-03-04] VITALS (7 sets, daily range): BP systolic 129; BP diastolic 106; PULSE 87; RESP 16–20; TEMP 36.7; O2SAT 100; BMI 39.5
--- NOTE | 2022-03-04 17:26 | CT_ITS ---
STUDY: CT BRAIN WITHOUT CONTRAST REASON FOR EXAM: Male, 36 years old. [facility] told staff today he has been feeling suicidal and has been hitting himself with his fists in the head. States he was in the kitchen the other night with a knife and put it down because he felt like he might hurt someone else. also reports thoughts of hurting himself when in the bathroom without a plan. trauma TECHNIQUE: Transaxial CT imaging of the brain was performed without administration of intravenous contrast material. Individualized dose optimization techniques were used for this CT. COMPARISON: ..20 FINDINGS: Normal calvarium. Normal soft tissues. Normal size ventricles and extra-axial spaces for the patient''s age. Normal white matter tracts of the cerebral hemispheres. Normal basal ganglia and thalami. Normal brainstem. Normal cerebellum. There is no intracranial hemorrhage. There are no findings of an acute ischemic infarction. Normal visualized paranasal sinuses. ASPECTS 10 CT/Brain/Head without Contrast IMPRESSION: There are no acute intracranial findings. Electronically Signed: Yovany Goodman MD at 18:03 EDT ,
--- NOTE | 2022-03-04 17:27 | EX.ED.VIS.PS ---
HPI HPI - Psych History of Present Illness Chief Complaint: Suicidal Informant: patient and mental health staff Narrative Narrative: Patient has a history of schizophrenia. He had episode hearing voices and suicidal ideation back in January. It sounds like he started Invega then. He has been doing well until the last few days. He states on Friday he started hearing voices again. They tell him to go kill himself upstairs in the bathroom. Over the weekend he was standing in the kitchen with a knife thinking of hurting himself or others. He states he really does not want to do this but he is afraid he will because of the voices. He also was punching himself in the head. He hit his head on a couch also. He states he saw stars but did not pass out. However later that day he did vomit several times. He states he has a very big gag reflex so this may have been the cause of vomiting but he is not sure. He has been eating and drinking since without vomiting. No neurologic deficits. He states he heard a crack when he had his head. 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 Schizophrenia Home Medications cholecalciferol (vitamin D3) 50 mcg (2,000 unit) capsule (Vitamin D3) 5,000 unit PO DAILY 01/15/22 [History Last Taken Unknown] fenofibrate nanocrystallized 145 mg tablet 145 mg PO QHS 01/15/22 [History Last Taken Unknown] lamotrigine 200 mg tablet 200 mg PO DAILY 01/15/22 [History Last Taken Unknown] omeprazole 20 mg capsule,delayed release 40 mg PO DAILY 01/15/22 [History Last Taken Unknown] paliperidone 9 mg tablet,extended release 24 hr 9 mg PO DAILY 03/04/22 [History Last Taken Unknown] rosuvastatin 10 mg tablet 10 mg PO DAILY 03/04/22 [History Last Taken Unknown] Allergy/AdvReac Type Severity Reaction Status Date / Time No Known Allergies Allergy Verified 03/04/22 16:40 Family History Mother Overdose Surgical History History of cholecystectomy History of testicular surgery Social History Smoking Status: Current every day smoker tobacco type: cigarettes alcohol intake: never substance use type: does not use ROS ROS ED Constitutional Constitutional ED: Denies chills or fever(s) Eyes Eyes: Denies change in vision ENT ENT ED: Denies rhinorrhea or sore throat Cardiovascular Cardiovascular: Denies chest pain Respiratory/Chest Respiratory/Chest: Denies cough or dyspnea Gastrointestinal Gastrointestinal: Reports nausea and vomiting; Denies abdominal pain or diarrhea Genitourinary Genitourinary ED: Denies dysuria Musculoskeletal Musculoskeletal: Denies arthralgias, back pain or myalgias Integumentary Denies rash Neurologic Neurologic: Reports headache(s); Denies paresthesias or weakness Psychiatric Psychiatric: Reports suicidal ideation and other Details: See history of present illness peer Hematologic/Lymphatic Hematologic/Lymphatic: Denies easy bleeding or easy bruising Allergic/Immunologic Allergic/Immunologic ED: Denies urticaria EXAM Physical Exam Const Vital Signs: 03/04/22 16:35 03/04/22 18:41 03/04/22 19:00 Temperature 98.0 F Temperature Source Temporal Pulse Rate 87 Respiratory Rate 20 H 16 16 Blood Pressure 129/106 H Blood Pressure Mean 113 Pulse Ox 100 Oxygen Delivery Method Room Air Room Air 03/04/22 20:00 03/04/22 21:00 03/04/22 22:00 Temperature Temperature Source Pulse Rate Respiratory Rate 16 16 16 Blood Pressure Blood Pressure Mean Pulse Ox Oxygen Delivery Method 03/04/22 23:00 Temperature Temperature Source Pulse Rate Respiratory Rate 16 Blood Pressure Blood Pressure Mean Pulse Ox Oxygen Delivery Method Positive well nourished and well developed Constitutional Narrative: Patient is pleasant and very cooperative. General Appearance ED: well developed and NAD; Negative for pallor HEENT HEENT Narrative: There is contusion on the left side of his head. No step-off is felt. Eyes PERRL and EOMs intact bilaterally Neck no JVD Resp normal respiratory effort and clear to auscultation bilaterally Cardio no murmurs Rhythm: regular rhythm GI non-tender, non-distended and no masses Back/Spine no CVA tenderness Extremity normal to inspection Neuro oriented x3 Psych Psych Narrative: Mildly flat affect. Admits to auditory hallucinations. Skin General Skin Exam: Negative for jaundice or pallor MDM MDM MDM Narrative Medical decision making narrative: Patient CBC shows minimal nonspecific elevation white count. Electrolytes are overall normal. Talk screen is negative except for cannabis. Alcohol is negative also. CT scan of the head showed no acute process. Patient is medically cleared for psychiatric evaluation and admission if needed. Patient is being currently evaluated by ikrsten Etienne and mitzi guerra. Disposition/transfer is pending. Lab Data Attestation: I reviewed the patient's lab results. Labs: Laboratory Results - last 24 hr 03/04/22 03/04/22 03/04/22 17:15 17:30 17:30 WBC 12.5 H RBC 5.68 Hgb 16.2 Hct 49.1 MCV 86.4 MCH 28.5 MCHC 33.0 RDW Std Deviation 46.3 H RDW Coeff of Melquiades 14.5 Plt Count 260 MPV 10.9 Immature Gran % (Auto) 0.400 Neut % (Auto) 64.4 Lymph % (Auto) 25.5 [place] % (Auto) 5.9 Eos % (Auto) 3.1 Baso % (Auto) 0.7 Absolute Neuts (auto) 8.0 H Absolute Lymphs (auto) 3.17 Nucleated RBC % 0 Sodium 139 Potassium 3.7 Chloride 107 Carbon Dioxide 24.0 Anion Gap 8 BUN 10 Creatinine 0.87 Estim Creat Clear Calc 125.02 Est GFR (MDRD) Af Amer 127 Est GFR (MDRD) Non-Af 105 BUN/Creatinine Ratio 11.4 Glucose 92 Calcium 9.8 Urine Opiates Screen NEGATIVE Urine Methadone Screen NEGATIVE Ur Barbiturates Screen NEGATIVE Ur Phencyclidine Scrn NEGATIVE Ur Amphetamines Screen NEGATIVE MDMA (Ecstasy) Screen NEGATIVE U Benzodiazepines Scrn NEGATIVE Urine Cocaine Screen NEGATIVE U Cannabinoids Screen POSITIVE H Ur Drug Screen Comment Ethyl Alcohol 03/04/22 17:30 WBC RBC Hgb Hct MCV MCH MCHC RDW Std Deviation RDW Coeff of Melquiades Plt Count MPV Immature Gran % (Auto) Neut % (Auto) Lymph % (Auto) [place] % (Auto) Eos % (Auto) Baso % (Auto) Absolute Neuts (auto) Absolute Lymphs (auto) Nucleated RBC % Sodium Potassium Chloride Carbon Dioxide Anion Gap BUN Creatinine Estim Creat Clear Calc Est GFR (MDRD) Af Amer Est GFR (MDRD) Non-Af BUN/Creatinine Ratio Glucose Calcium Urine Opiates Screen Urine Methadone Screen Ur Barbiturates Screen Ur Phencyclidine Scrn Ur Amphetamines Screen MDMA (Ecstasy) Screen U Benzodiazepines Scrn Urine Cocaine Screen U Cannabinoids Screen Ur Drug Screen Comment Ethyl Alcohol < 3.0 Radiography Diagnostic Testing: Clinical Impression(s) from Imaging Studies Brain CT 03/04/22 17:26 IMPRESSION: There are no acute intracranial findings. Electronically Signed: Yovany Goodman MD at 18:03 EDT Reading Location ID and State: [facility] / [place] , Service support , Discharge Plan Triage Chief Complaint: Suicidal ED Provider: Sav Bob Dx/Rx/DC Orders Clinical Impression: Suicidal ideation, Auditory hallucination Prescriptions: No Action lamotrigine 200 mg tablet 200 mg PO DAILY omeprazole 20 mg capsule,delayed release(DR/EC) 40 mg PO DAILY fenofibrate nanocrystallized 145 mg tablet 145 mg PO QHS cholecalciferol (vitamin D3) [Vitamin D3] 50 mcg (2,000 unit) capsule 5,000 unit PO DAILY rosuvastatin 10 mg Tablet 10 mg PO DAILY paliperidone 9 mg Tablet Extended Release 24hr 9 mg PO DAILY Primary Care Provider: Redd Baeza Referrals: Redd Baeza DO [Primary Care Provider] - Disposition Disposition: Psychiatric Hospital or Unit
[2022-03-04 17:37] LABS: Absolute Lymphocyte Count 3.17 X10^3/uL (0.83-4.51); Basophil# 0.09 X10^3/uL; Basophil% 0.7 % (0-1); Eosinophil# 0.39 X10^3/uL; Eosinophils% 3.1 % (0-5); Hematocrit 49.1 % (40-54); Hemoglobin 16.2 g/dL (13.0-16.5); Lymphocyte # 3.17 X10^3/ul (0.83-4.51); Lymphocyte % 25.5 % (19-41); Mean Corpuscular Hgb 28.5 pg (27.0-32.0); Mean Corpuscular Volume 86.4 fL (80-94); Mean Platelet Vol. 10.9 fl (6.2-12.0); Monocyte# 0.74 X10^3/uL; Monocyte% 5.9 % (0-10); NRBC Flagged by Analyzer 0 % (0-5); Neutrophil # 8.01 X10^3/uL (2.7-7.7); Neutrophil % 64.4 % (47-70); Platelet Count 260 K/mm3 (150-450); RBC Distribution Width CV 14.5 % (11.6-14.6); RBC Distribution Width SD 46.3 fl (35.1-43.9); Red Blood Count 5.68 M/mm3 (4.6-6.2); White Blood Count 12.5 K/mm3 (4.4-11.0)
[2022-03-04 17:52] LABS: Amphetamine Urine VISTA NEGATIVE (<1000 ng/mL); Barbiturate Urine VISTA NEGATIVE (< 200 ng/mL); Benzodiazepine Urine VISTA NEGATIVE (< 200 ng/mL); Cocaine Urine VISTA NEGATIVE (< 300 ng/mL); Ecstacy Urine VISTA NEGATIVE (< 500 ng/mL); Methadone Urine VISTA NEGATIVE (< 300 ng/mL); PCP Urine VISTA NEGATIVE (< 25 ng/mL); THC Urine VISTA POSITIVE (< 50 ng/mL); Vista UDS pH Range 5
[2022-03-04 17:58] LABS: Anion Gap 8 (5-15); BUN 10 mg/dL (7-18); BUN/Creat Ratio 11.4 RATIO (10-20); Calcium,Total 9.8 mg/dL (8.5-10.1); Chloride 107 mmol/L (98-107); Creatinine, Serum 0.87 mg/dL (0.70-1.30); EST Glomerular Filtration Rate 105 mL/min (>60); Est Glom Filt Rate - Afr Amer 127 mL/min (>60); Estimated Creatinine Clearance 125.02 ml/min; Glucose 92 mg/dL (74-106); Potassium 3.7 mmol/L (3.5-5.1); Sodium Level 139 mmol/L (136-145)
[2022-03-04] MEDS: Acetaminophen 325 MG Tablet 650 MG PO (18:15)
[2022-03-04 18:20] LABS: Alcohol, Blood (Medical)-Serum < 3.0 mg/dL
--- NOTE | 2022-03-04 18:52 | NURSING ---
CALLED FOR CRISIS AT [phone], THEY CALLED BACK TO TALK WITH PATIENT AT 185
--- NOTE | 2022-03-04 19:06 | NURSING ---
[facility] CALL[facility] BACK, REFERRING TO [facility]
--- NOTE | 2022-03-04 20:03 | NURSING ---
Addendum entered by Haydee Mack 03/04/22 23:56: declined at [facility]. pending at [facility], [facility]. Original Note: PENDING AT [facility] AND [facility]
[2022-03-05] VITALS: RESP 14
[2022-03-05] MEDS: Acetaminophen 325 MG Tablet 650 MG PO ×2 (00:50→08:07)
[2022-03-05 00:56] VITALS: BP 131/86; PULSE 95; RESP 16; O2SAT 99
[2022-03-05 02:00] VITALS: RESP 14
[2022-03-05 03:00] VITALS: RESP 14
[2022-03-05] MEDS: lamoTRIgine 100 MG Tablet 200 MG PO (08:07)
[2022-03-05] MEDS: Pantoprazole Sodium 40 MG Tablet PO (08:08)
[2022-03-05] MEDS: Cholecalciferol (Vit D3) 125 MCG CAPSULE (5,000 UNITS) PO (08:08)
[2022-03-05 08:32] VITALS: BP 139/85; PULSE 78; O2SAT 96
--- NOTE | 2022-03-05 08:36 | EKG12_ITS ---
Test Reason : Blood Pressure : / mmHG Vent. Rate : 072 BPM Atrial Rate : 072 BPM P-R Int : 170 ms QRS Dur : 076 ms QT Int : 372 ms P-R-T Axes : 050 -19 025 degrees QTc Int : 407 ms Normal sinus rhythm Normal ECG Confirmed by MEAGHAN CUEVAS, GEORGINA ([id number]), supervising film or videotape editor DAMASO HIGGINS ([id number]) on 03/07/2022 10:59:27 AM Referred By: PL Confirmed By:GEORGINA HARDING MD
--- NOTE | 2022-03-05 09:43 | NURSING ---
CALLED [facility], ETA IS 90 MIN
--- NOTE | 2022-03-05 10:10 | ED.RN ---
ATTEMPTED TO CALL REPORT, NO ANSWER.
[2022-03-05 10:38] VITALS: BP 114/73; PULSE 64; RESP 16; TEMP 36.7; O2SAT 95
--- NOTE | 2022-03-05 11:42 | NURSING ---
CALLED ABOUT [facility] STATUS. ETA IS 10-15
== END 2022-03-05 12:09 ==
PROVIDERS: Emergency Provider Emergency Medicine; PCP Student in an Organized Health Care Education/Training Program; Visit Provider Emergency Medicine
DX: F20.9 Schizophrenia, unspecified (principal); R45.851 Suicidal ideations; Z79.899 Other long term (current) drug therapy; F17.210 Nicotine dependence, cigarettes, uncomplicated
CPT/HCPCS: 36415; 70450; 80048; 80307; 82077; 85025; 87811; 93005; 99285

== ENCOUNTER 2022-04-02 13:06 | Emergency (ER) | payer MEDICAID, SELFPAY ==
[2022-04-02 13:07] VITALS: BP 145/97; PULSE 101; RESP 13; TEMP 36; O2SAT 99; BMI 39.0
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
[2022-04-02] MEDS: Naproxen 500 MG Tablet PO (13:46)
== END 2022-04-02 13:55 | disposition home or self-care (01) ==
PROVIDERS: Emergency Provider Emergency Medicine; PCP Student in an Organized Health Care Education/Training Program; Visit Provider Emergency Medicine
DX: S00.432A Contusion of left ear, initial encounter (principal); F20.9 Schizophrenia, unspecified; W50.0XXA Accidental hit or strike by another person, initial encounter
CPT/HCPCS: 99283

== ENCOUNTER 2022-04-06 11:39 | Emergency (ER) | payer MEDICAID, SELFPAY ==
[2022-04-06 11:41] VITALS: BP 154/100; PULSE 93; RESP 18; TEMP 36.6; O2SAT 97; BMI 38.5
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
[2022-04-06] MEDS: HYDROcodone Bitartrate/Apap 5/325 Tablet PO (12:18)
== END 2022-04-06 12:19 | disposition home or self-care (01) ==
PROVIDERS: Emergency Provider Emergency Medicine; PCP Student in an Organized Health Care Education/Training Program; Visit Provider Emergency Medicine
DX: S00.432A Contusion of left ear, initial encounter (principal); F20.9 Schizophrenia, unspecified; S00.431A Contusion of right ear, initial encounter; E66.9 Obesity, unspecified; F17.210 Nicotine dependence, cigarettes, uncomplicated; Z79.899 Other long term (current) drug therapy; Y04.8XXA Assault by other bodily force, initial encounter
CPT/HCPCS: 99282

== ENCOUNTER 2022-04-07 10:43 | Emergency (ER) | payer MEDICAID, SELFPAY ==
[2022-04-07 10:44] VITALS: BP 160/113; PULSE 81; RESP 16; TEMP 36.4; O2SAT 96; BMI 38.9
--- NOTE | 2022-04-07 11:00 | RAD_ITS ---
EXAM: XR CERVICAL SPINE, 4 OR 5 VIEWS CLINICAL INDICATION: Neck pain. TECHNIQUE: Frontal, lateral and bilateral oblique views of the cervical spine. This report was created using [employer] report generation technology. COMPARISON: 03/17/2017. FINDINGS: VERTEBRAE: Normal vertebral body heights, endplates and alignment. No spondylolisthesis. Preservation of the normal cervical lordosis. No obvious significant facet arthropathy. DISC SPACES: Moderate stenosis of the right C4-C5 intervertebral neural foramen. Normal disc space heights. SOFT TISSUES: Unremarkable. No prevertebral soft tissue widening. LUNG APICES: Clear. OTHER FINDINGS: Suboptimal left oblique view positioning. RAD/Cerv Spine 4 or 5 Views IMPRESSION: 1. No acute osseous abnormality and no malalignment of the cervical spine. 2. Suboptimal left oblique view positioning for left neuroforamina stenosis evaluation. 3. Moderate stenosis of the right C4-C5 intervertebral neural foramen. CT will be helpful for further evaluation. Electronically Signed: Josh Diggs MD at 11:50 EDT ,
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
[2022-04-07] MEDS: Ketorolac 15 MG/ML Vial IM (11:15)
--- NOTE | 2022-04-07 11:49 | ED.RN ---
PT WALKED OUT OF DEPARTMENT. PT STATES I GOTTA GO. PT AMBULATED OUT OF DEPARTMENT
== END 2022-04-07 11:52 | disposition left against medical advice (07) ==
PROVIDERS: Emergency Provider Student in an Organized Health Care Education/Training Program; PCP Student in an Organized Health Care Education/Training Program; Visit Provider Student in an Organized Health Care Education/Training Program
DX: S16.1XXA Strain of muscle, fascia and tendon at neck level, initial encounter (principal); F20.9 Schizophrenia, unspecified; S00.431A Contusion of right ear, initial encounter; S00.432A Contusion of left ear, initial encounter; M48.02 Spinal stenosis, cervical region; F17.210 Nicotine dependence, cigarettes, uncomplicated; Z79.899 Other long term (current) drug therapy; X58.XXXA Exposure to other specified factors, initial encounter
CPT/HCPCS: 72050; 96372; 99284

== ENCOUNTER 2022-06-17 11:34 | Emergency (ER) | payer MEDICAID, SELFPAY ==
[2022-06-17 11:36] VITALS: BP 134/95; PULSE 98; RESP 18; TEMP 36; O2SAT 100; BMI 39.7
== END 2022-06-17 11:52 | disposition left against medical advice (07) ==
LOC: ED 11:52
PROVIDERS: PCP Student in an Organized Health Care Education/Training Program
DX: Z53.21 Procedure and treatment not carried out due to patient leaving prior to being seen by health care provider (principal)

== ENCOUNTER 2022-09-06 13:50 | Emergency (ER) | payer MEDICAID, SELFPAY ==
[2022-09-06 13:52] VITALS: BP 142/107; PULSE 100; RESP 18; TEMP 36.6; BMI 32.1
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
--- NOTE | 2022-09-06 14:22 | ED.RN ---
PT ASKED FOR SPRITE. PT AWAARE IF HE CHOOSES TO STRIKE HIMSELF, FOOD AND DRINK WILL BE REMOVED. PT ABLE TO DRINK SOME SPRITE, BUT THEN STRIKES SELF IN FACE. DRINK REMOVED, PT AWARE NO FOOD OR DRINK AT THIS TIME
--- NOTE | 2022-09-06 14:25 | EKG12_ITS ---
Test Reason : Blood Pressure : / mmHG Vent. Rate : 077 BPM Atrial Rate : 077 BPM P-R Int : 156 ms QRS Dur : 072 ms QT Int : 380 ms P-R-T Axes : 038 -22 007 degrees QTc Int : 430 ms Normal sinus rhythm Minimal voltage criteria for LVH, may be normal variant ( R in aVL ) Poor R wave progression Confirmed by MEAGHAN CUEVAS, GEORGINA ([id number]), department editor DAMASO HIGGINS ([id number]) on 09/10/2022 12:24:21 PM Referred By: CIRILO Confirmed By:GEORGINA HARDING MD
--- NOTE | 2022-09-06 14:48 | CM.ED ---
JOY Note SW received received call from Lisa at [facility]. Patient is bringing brought to the ED by the police. Patient reports he wants to hurt others and the voices are telling him to hurt others. Patient has been punching and hitting himself. Patient has diagnosis of Unspecified Schizophrenia and Major Depressive Disorder Recurrent. Officer El said that patient is not eating. Officer reports that patient wants help and wants to be put in restraints. Patient, per officer, is not med compliant. Informant: Lisa from [facility], Officer El SUGGS and patient. Chief Complaint: Patient said that he is at the hospital as for ?the past 2 weeks I have been hitting myself and I am barricading self in my blanket to protect myself from hurting anyone else?. While talking patient has wrapped a blanket around his hands. SW asked patient what prompted him to come to the ED today and patient said ?I got to the point that I panicked so I went outside to get help? and he ran to neighbors house and they called the police. Patient reports he has not eaten ?for awhile?. Patient is unable to quantify how long he has not eaten. Patient said that he may have lost weight. Patient said that he has 2 friends that were ?laying food on a blanket to feed me ? and to make sure that he had liquids. Patient said that his friends were giving him pop. Patient said that he has been afraid to open mail as he was afraid that he would punch himself. Patient said that he hit himself in the head with his cell phone. Patient reports he has not bathed for ?awhile?. Patient?s hygiene is poor. Marital History: Single Identified Gender: Male Sexual Orientation: ?not attracted to anyone? Living Situation: Patient resides with a friend and her son in a house. Patient said that his friend and son are supportive. Support/Resources: Patient reports that ?I don?t really have anybody? for support History: Denied Education and Employment: Patient stated that the last grade he attended was the 10th grade. Patient did not graduate high school. Patient had an IEP for reading and math. Patient said that he previously had a job but has not had a job for a ?long time?. Patient said that he was getting social security but it was ?suspended?. Triggers and Stressors: SW inquired about stressors and patient said ?what?s going on with this? and referenced his hands in the blanket. Coping Skills: ?I try but nothing works?. Patient said ?I feel sick, hungry and nervous?. Patient said that he has never been in restraints before but stated if the blanket is taken away from him he will hit his face or body. Abuse: Denied Substance Abuse: Patient denied alcohol use. Patient reports he smoked marijuana over 1 month ago ago. Patient denied any other drug abuse or history. Suicidal: Patient denied any thoughts or plans regarding suicide. Patient said that he has attempted suicide in the past but when asked about the attempt patient said he didn?t remember. Patient said that if he takes the blanket off he will hurt himself. Homicidal: Patient said that he has had thoughts that he was going to hit someone and ?lose control?. Patient said that the thoughts regarding harm and losing control are not toward anyone specific. Violence: Patient denied cutting behavior. Patient said that he has been hitting himself and it has been ?going on for awhile but it has gotten really bad?. SW asked about the time from for patient hitting himself and it getting bad and patient said that he did not know and was unable to provide time frames. MSE Orientation: X4 Appearance: Disheveled, Unclean, Poor hygiene, Smells of cat urine Mood and Affect: Depressed Communication Pattern: Responds to questions. Watchful as to what this signwriter is documenting. Patient is unable to quantify any time frames. Thought Process: Patient reports that he is not hearing voices currently or this morning. Patient said ?the other day? he had heard voices to tell him to ?hit her with a dish?. Patient denied VH. Patient denied any history of VH. Patient appears to be attending to internal stimuli General Intellectual Functioning: Average Judgment: Impaired Insight: Poor SW spoke with patient and asked if there was any additional information this signwriter should know and he said no. Patient requested a glass of sprite. Patient was told that he would be allowed to have sprite if he could control himself and not harm himself. SW and set staff fitter advised patient that if patient got sprite and harmed himself that patient would not be given liquid as to ensure that patient is not harming himself. Patient verbalized understanding. Patient drank the sprite and then hit the side of his head. Patient was advised that patient will not be given liquids at this time due to his self abusive behaviors. Tayler BOTELLO
[2022-09-06 15:41] LABS: Absolute Lymphocyte Count 2.24 X10^3/uL (0.83-4.51); Absolute Neutrophil Count 3.8 X10^3/uL (2.0-7.7); Basophil# 0.04 X10^3/uL; Basophil% 0.6 % (0-1); Eosinophil# 0.37 X10^3/uL; Eosinophils% 5.3 % (0-5); Hematocrit 45.3 % (40-54); Hemoglobin 14.5 g/dL (13.0-16.5); Lymphocyte # 2.24 X10^3/ul (0.83-4.51); Lymphocyte % 32.3 % (19-41); Mean Corpuscular Hgb 28.9 pg (27.0-32.0); Mean Corpuscular Volume 90.2 fL (80-94); Mean Platelet Vol. 10.9 fl (6.2-12.0); Monocyte# 0.46 X10^3/uL; Monocyte% 6.6 % (0-10); NRBC Flagged by Analyzer 0 % (0-5); Neutrophil # 3.81 X10^3/uL (2.7-7.7); Neutrophil % 54.9 % (47-70); Platelet Count 240 K/mm3 (150-450); RBC Distribution Width CV 13.2 % (11.6-14.6); Red Blood Count 5.02 M/mm3 (4.6-6.2); White Blood Count 6.9 K/mm3 (4.4-11.0)
[2022-09-06 16:01] LABS: Anion Gap 4 (5-15); BUN 7 mg/dL (7-18); BUN/Creat Ratio 9.6 RATIO (10-20); Calcium,Total 9.2 mg/dL (8.5-10.1); Chloride 109 mmol/L (98-107); Creatinine, Serum 0.73 mg/dL (0.70-1.30); EST Glomerular Filtration Rate 128 mL/min (>60); Est Glom Filt Rate - Afr Amer 155 mL/min (>60); Estimated Creatinine Clearance 147.56 ml/min; Glucose 97 mg/dL (74-106); Potassium 3.7 mmol/L (3.5-5.1); Sodium Level 143 mmol/L (136-145)
[2022-09-06] MEDS: Acetaminophen 325 MG Tablet 650 MG PO (16:01)
[2022-09-06 16:04] LABS: Alcohol, Blood (Medical)-Serum < 3.0 mg/dL
--- NOTE | 2022-09-06 17:06 | EDS_ITS ---
HPI HPI - Psych History of Present Illness Chief Complaint: Mental Health Detail of Chief Complaint: Hitting himself x2 weeks Informant: patient Onset/Context/Timing Onset: Weeks Context: Sudden Onset Timing: Intermittent and Waxes and wanes Current Severity: Patient states he had some sulfur unknown reason Maximum Severity: Hits himself Relieved by: Nothing Associated Symptoms Associated Symptoms - Psych: Positive for Depressed, Change in Eating, Change in sleeping, Decreased Interest and Decreased Concentration; Negative for Hopelessness, Suicidal Thoughts, Easily distracted, Grandiosity, Flight of Ideas, Increased activity, Pressured Speech, Agitated, Angry, Hostile, Threatening, Confusion, Paranoia, Visual Hallucinations or Auditory Hallucinations Specific plan (suicidal thought): None Narrative Narrative: Patient is a 37-year-old male who lives with significant other and her child. Patient stopped compliant with his meds. Patient got bathed in 2 weeks. Patient's had poor p.o. intake. Patient's had disturbance in sleep. Patient does admit to depression. He states he is not sure why he hits himself. He states if he keeps his hands wrapped up in a blanket he will not hit himself. When he went to examine his hands he struck himself. He struck himself with quite a bit of force as well. Patient denies headache, visual, ocular auditory symptoms. Patient Nuys neck pain. Patient Nuys cardiac respiratory symptoms. Patient denies GI symptoms. Patient denies urologic symptoms. 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 Schizophrenia Home Medications cholecalciferol (vitamin D3) 50 mcg (2,000 unit) capsule (Vitamin D3) 5,000 unit PO DAILY 01/15/22 [History Last Taken Unknown] fenofibrate nanocrystallized 145 mg tablet 145 mg PO QHS 01/15/22 [History Last Taken Unknown] lamotrigine 200 mg tablet 200 mg PO DAILY 01/15/22 [History Last Taken Unknown] omeprazole 20 mg capsule,delayed release 40 mg PO DAILY 01/15/22 [History Last Taken Unknown] paliperidone 9 mg tablet,extended release 24 hr 9 mg PO DAILY 03/04/22 [History Last Taken Unknown] rosuvastatin 10 mg tablet 10 mg PO DAILY 03/04/22 [History Last Taken Unknown] naproxen 500 mg tablet (Naprosyn) 500 mg PO BID PRN pain #20 tabs 04/02/22 [Rx Last Taken Unknown] Allergy/AdvReac Type Severity Reaction Status Date / Time No Known Allergies Allergy Verified 09/06/22 13:59 Family History Mother Overdose Surgical History History of cholecystectomy History of testicular surgery Social History (Updated 09/06/22 @ 17:[address] Jose David Ramos MD) household members: significant other and children Smoking Status: Current every day smoker tobacco type: cigarettes alcohol intake: never substance use type: does not use ROS ROS ED Constitutional Constitutional ED: Denies chills, fever(s), subjective, sweats or weight loss Eyes Eyes: Denies blurry vision, change in vision or diplopia ENT ENT ED: Denies ear pain, rhinorrhea or sore throat Cardiovascular Cardiovascular: Denies chest pain, orthopnea, palpitations, paroxysmal nocturnal dyspnea or racing heartbeat Respiratory/Chest Respiratory/Chest: Denies cough, dyspnea, dyspnea on exertion, orthopnea or paroxysmal nocturnal dyspnea Gastrointestinal Gastrointestinal: Denies abdominal pain, diarrhea, nausea or vomiting Genitourinary Genitourinary ED: Denies dysuria, hematuria or urinary frequency Musculoskeletal Musculoskeletal: Denies arthralgias, back pain, myalgias or neck pain Integumentary Denies abscess, Abrasions or rash Neurologic Neurologic: Denies headache(s), paresthesias or weakness Psychiatric Psychiatric: Reports anxiety; Denies suicidal thoughts Endocrine Endocrinology: Denies polydipsia, polyphagia or polyuria Hematologic/Lymphatic Hematologic/Lymphatic: Denies easy bleeding or easy bruising Allergic/Immunologic Allergic/Immunologic ED: Denies mouth swelling or tongue swelling EXAM Physical Exam Const Vital Signs: 09/06/22 13:52 09/06/22 18:51 09/06/22 20:56 Temperature 97.8 F Temperature Source Temporal Pulse Rate 100 Respiratory Rate 18 16 16 Blood Pressure 142/107 H Blood Pressure Mean 118 Positive well nourished, well developed, obese and unkempt General Appearance ED: unkempt, well developed and NAD; Negative for pallor Nutritional Appearance: obese HEENT Reports moist mucous membranes HEENT Narrative: Ears normal. TMs normal. Nares patent. No evidence of acute dental trauma. normocephalic and atraumatic Eyes PERRL and EOMs intact bilaterally Eyes Narrative: There is no sign conjunctival hemorrhage noted. General Eye ED: Negative for pale conjunctiva or scleral icterus Neck no lymphadenopathy, supple and no JVD Resp normal respiratory effort and clear to auscultation bilaterally Cardio S1 normal heart sound, S2 normal heart sound and no murmurs Rate: regular rate Rhythm: regular rhythm GI non-tender, non-distended and no masses Auscultation: normoactive bowel sounds Palpation: soft Back/Spine no CVA tenderness Cervical Spine: Negative for cervical spine tenderness Thoracic Spine / Upper Back: Negative for thoracic spinal tenderness Lumbar Spine / Lower Back: Negative for lumbar spinal tenderness Extremity normal to inspection General Extremety ED: Negative for edema or tenderness General Extremity: Negative for edema Neuro oriented x3, CN's II-XII intact bilaterally, no sensory deficits noted and deep tendon reflexes 2+ bilaterally Quynh Coma Scale: document GCS findings Spontaneous Obeys Commands Oriented 15 Sensorium / Orientation: alert Motor Exam: strength 5/5 throughout Psych cooperative, denies hallucinations and denies homicidal ideation; Negative for thought process normal Appearance: unkempt Attitude: calm and other When patient's hands were examined and removed from the blanket that he wrapped them and he began punching himself. Activity / Motor Behavior: psychomotor slowing; Negative for fidgetting, hyperactive, restless or mannerisms Speech: minimal, slow and soft Mood & Affect: depressed and blunted affect Thought Content: No suicidality, No homicidality, No phobia(s), No hallucination(s), No rumination(s), No compulsion(s) and No obsession(s) Attention / Concentration: attention grossly intact and concentration grossly intact Memory / Cognition: memory grossly intact Insight: poor Judgement: poor Skin General Skin Exam: Negative for jaundice or pallor Lesions: no lesions Rashes: no rashes MDM MDM MDM Narrative Medical decision making narrative: [employer] social studies teacher was consulted to see patient since he will require inpatient therapy. He is depressed with problems with self-control and injuring himself. COVID test was positive. This was a rapid COVID which may represent a false positive. COVID PCR was obtained. He has no symptoms of COVID. COVID PCR is also positive. We will contact crisis to facilitate transfer to appropriate facility. Lab Data Attestation: I reviewed the patient's lab results. Labs: Laboratory Results - last 24 hr 09/06/22 09/06/22 09/06/22 15:20 15:20 15:20 WBC 6.9 RBC 5.02 Hgb 14.5 Hct 45.3 MCV 90.2 MCH 28.9 MCHC 32.0 RDW Std Deviation 44.0 H RDW Coeff of Melquiades 13.2 Plt Count 240 MPV 10.9 Immature Gran % (Auto) 0.300 Neut % (Auto) 54.9 Lymph % (Auto) 32.3 Duval % (Auto) 6.6 Eos % (Auto) 5.3 H Baso % (Auto) 0.6 Absolute Neuts (auto) 3.8 Absolute Lymphs (auto) 2.24 Nucleated RBC % 0 Sodium 143 Potassium 3.7 Chloride 109 H Carbon Dioxide 30.0 Anion Gap 4 L BUN 7 Creatinine 0.73 Estim Creat Clear Calc 147.56 Est GFR (MDRD) Af Amer 155 Est GFR (MDRD) Non-Af 128 BUN/Creatinine Ratio 9.6 L Glucose 97 Calcium 9.2 Urine Opiates Screen Urine Methadone Screen Ur Barbiturates Screen Ur Phencyclidine Scrn Ur Amphetamines Screen MDMA (Ecstasy) Screen U Benzodiazepines Scrn Urine Cocaine Screen U Cannabinoids Screen Ur Drug Screen Comment Ethyl Alcohol < 3.0 COVID-19 (KRISTEN) 09/06/22 09/06/22 17:22 20:25 WBC RBC Hgb Hct MCV MCH MCHC RDW Std Deviation RDW Coeff of Melquiades Plt Count MPV Immature Gran % (Auto) Neut % (Auto) Lymph % (Auto) Duval % (Auto) Eos % (Auto) Baso % (Auto) Absolute Neuts (auto) Absolute Lymphs (auto) Nucleated RBC % Sodium Potassium Chloride Carbon Dioxide Anion Gap BUN Creatinine Estim Creat Clear Calc Est GFR (MDRD) Af Amer Est GFR (MDRD) Non-Af BUN/Creatinine Ratio Glucose Calcium Urine Opiates Screen NEGATIVE Urine Methadone Screen NEGATIVE Ur Barbiturates Screen NEGATIVE Ur Phencyclidine Scrn NEGATIVE Ur Amphetamines Screen NEGATIVE MDMA (Ecstasy) Screen NEGATIVE U Benzodiazepines Scrn NEGATIVE Urine Cocaine Screen NEGATIVE U Cannabinoids Screen POSITIVE H Ur Drug Screen Comment Ethyl Alcohol COVID-19 (KRISTEN) Detected EKG Initial EKG: Attestation: I personally reviewed and interpreted this EKG as follows: Interpretation: Sinus Rhythm (Rate of 77. NV interval is 156 ms per cures duration 72 ms. QT duration 280 ms. [place] is normal. Computer is reading minimal voltage criteria for LVH. There is artifact.) Prior EKG tracings: available for review Prior: Unchanged (EKG obtained March 05, 2022 was normal and there is no significant difference between today's and prior.) Discharge Plan Triage Chief Complaint: Mental Health ED Provider: Jose David Ramos Dx/Rx/DC Orders Clinical Impression: Depression, Injury, self-inflicted, History of impulsive behavior, COVID-19 Prescriptions: No Action lamotrigine 200 mg tablet 200 mg PO DAILY omeprazole 20 mg capsule,delayed release(DR/EC) 40 mg PO DAILY fenofibrate nanocrystallized 145 mg tablet 145 mg PO QHS cholecalciferol (vitamin D3) [Vitamin D3] 50 mcg (2,000 unit) capsule 5,000 unit PO DAILY rosuvastatin 10 mg Tablet 10 mg PO DAILY paliperidone 9 mg Tablet Extended Release 24hr 9 mg PO DAILY naproxen [Naprosyn] 500 mg tablet 500 mg PO BID PRN (Reason: pain) Qty: 20 0RF Primary Care Provider: Redd Baeza Referrals: Redd Baeza DO [Primary Care Provider] - Disposition Disposition: Psychiatric Hospital or Unit
--- NOTE | 2022-09-06 17:25 | CM.ED ---
JOY consulted with MD Ramos. Due to patient's current presentation patient is requiring inpatient psych hospitalization for crisis stabilization and med management. Plan is for inpatient psych. JOY updated Tran at [facility] that patient's first COVID test was positive. has been updated and will run a second COVID test on patient to verify if patient has covid. Tran said to fax referral information to Crisis and Luz Marina will see if any agency is taking Covid positive patients. JOY faxed referral packet to Crisis. Tayler BOTELLO
[2022-09-06] MEDS: LORazepam 0.5 MG Tablet PO (18:44)
[2022-09-06 18:51] VITALS: RESP 16
--- NOTE | 2022-09-06 19:41 | CM.ED ---
JOY called Luz Marina at Crisis. Luz Marina was advised that the patient's second covid test has not come back yet. Luz Marina has called various facilities and no one is taking covid positive patient except [facility] and they are not doing wait list. [facility] will need to continue to call and follow up with [facility] if is is confirmed that patient is covid positive. Referral Packet has been faxed to Crisis. Plan: Inpatient psych Tayler BOTELLO
[2022-09-06 20:55] LABS: Amphetamine Urine VISTA NEGATIVE (<1000 ng/mL); Barbiturate Urine VISTA NEGATIVE (< 200 ng/mL); Benzodiazepine Urine VISTA NEGATIVE (< 200 ng/mL); Cocaine Urine VISTA NEGATIVE (< 300 ng/mL); Ecstacy Urine VISTA NEGATIVE (< 500 ng/mL); Methadone Urine VISTA NEGATIVE (< 300 ng/mL); PCP Urine VISTA NEGATIVE (< 25 ng/mL); THC Urine VISTA POSITIVE (< 50 ng/mL); Vista UDS pH Range 7
[2022-09-06 20:56] VITALS: RESP 16
--- NOTE | 2022-09-06 22:03 | ED.RN ---
[facility] UPDATED ON PATIENT POSITIVE COVID STATUS THEY ARE WORKING ON PLACEMENT. HAS A COVID UNIT BUT NO OPEN BEDS AT THIS TIME. THEY ARE WORKING ON OTHER HOSPITALS
--- NOTE | 2022-09-06 22:49 | NURSING ---
[facility]ISIS STATED SINCE HE HAS A POSITIVE PCR COVID THEN WE ARE LIMITED ON PLACEMENT. HE WILL STAY HERE UNTIL MORNING SO THEY CAN FURTHER REEVALUATE AFTER DISCHARGES ARE MADE.
[2022-09-07] VITALS (20 sets, daily range): BP systolic 120–137; BP diastolic 83–86; PULSE 69–76; RESP 14–20; TEMP 36.4–36.8; O2SAT 97–100
[2022-09-07] MEDS: Ibuprofen 600 MG Tablet PO (00:51)
[2022-09-07] MEDS: Calcium Carbonate 500 MG Tablet 1000 MG PO (04:39)
[2022-09-07] MEDS: Acetaminophen 325 MG Tablet 650 MG PO (14:00)
--- NOTE | 2022-09-07 17:19 | ED.RN ---
patient refusing to feed himself at this time. patient states he does not want to eat then. RN stated he needs to feed and care for himself at this time. Patient upset and still refusing to eat.
[2022-09-07] MEDS: LORazepam 1 MG Tablet PO (17:47)
--- NOTE | 2022-09-07 19:21 | ED.RN ---
spoke with Tia on phone for update per pt request.
[2022-09-07] MEDS: Ziprasidone HCl 20 MG Capsule PO (19:51)
[2022-09-08] VITALS (15 sets, daily range): BP systolic 125–158; BP diastolic 80–90; PULSE 74–89; RESP 14–16; TEMP 36.6; O2SAT 97–99
[2022-09-08] MEDS: guaiFENesin 600 MG Tablet PO (04:48)
--- NOTE | 2022-09-08 04:49 | NURSING ---
unable to scan patient's bracelet or med due to scanner error. verified patient and med with Maricruz Pickens RN
--- NOTE | 2022-09-08 08:44 | NURSING ---
JUAN MANUEL, CRISIS, REPORTED PATIENT CAN'T BE EVALUATED BY IRINA SALDANA OR KRISTAL LORD FOR 5 DAYS
--- NOTE | 2022-09-08 09:42 | ED.RN ---
PER CRISIS, MANY FACILITIES WILL NOT LOOK AT PT INFORMATION UNTIL HE HAS COMPLETED A FIVE DAY QUARANTINE. AFTER THE QUARANTINE PERIOD IS COMPLETED THEN PT CAN BE REFERRED. PER DESTINEY AT [facility]ISIS, TWO OF THOSE FACILITIES [facility].
--- NOTE | 2022-09-08 12:32 | ED.RN ---
pt has many questoins answered what was able. crisis pt, per pt request to speak with them again
--- NOTE | 2022-09-08 12:49 | ED.RN ---
PT REQUESTS TO SPEAK TO CRISIS. CRISIS CONTACTED, REPORTS THEY ARE COMING IN TO EVALUATE TWO OTHER PT IN ED, BUT SINCE PT IS COVID POSITIVE THE COUNSELOR WILL SPEAK TO PT VIA PHONE CALL.
[2022-09-08] MEDS: Ziprasidone IM 20 MG/ML VIAL IM (15:26)
[2022-09-08] MEDS: LORazepam 2 MG/ML Syringe 1 MG IM (15:26)
[2022-09-09] VITALS (18 sets, daily range): BP systolic 124–136; BP diastolic 66–76; PULSE 59–79; RESP 15–18; TEMP 36.7; O2SAT 97–99
[2022-09-09] MEDS: Acetaminophen 500 MG Tablet 1000 MG PO (05:53)
[2022-09-09] MEDS: LORazepam 1 MG Tablet PO (18:02)
[2022-09-09] MEDS: Ziprasidone HCl 20 MG Capsule PO (18:02)
[2022-09-10] VITALS (16 sets, daily range): BP systolic 109–131; BP diastolic 71–79; PULSE 77–89; RESP 15–18; TEMP 36.2–37.1; O2SAT 95–98
--- NOTE | 2022-09-10 10:54 | CM.ED ---
SW Note SW was contacted by Tran from [facility] to provide SW with update regarding placement. Tran stated a referral can be sent to [facility] tomorrow 09/11/22, since it will be 5 days since him positive covid test as long as he is not symptomatic. Tran states [facility] will complete the referral. JOY updated sap fico business analyst and verified patient has been asymptomatic, RN confirmed. Plan: referral to [facility] tomorrow 09/11/22 by [facility] Nidia ROBLERO, RENE
--- NOTE | 2022-09-10 12:28 | ED.RN ---
PER CRISIS PT WILL BE ELIG[facility] REMA[facility] FREE.
[2022-09-10] MEDS: Senna/Docusate Sodium 1 Tablet 2 TABLET PO (13:59)
[2022-09-10] MEDS: Polyethylene Glycol 3350 17 GM PACKET 34 GM PO (21:22)
--- NOTE | 2022-09-10 22:06 | ED.RN ---
THIS RN SPOKE TO PT. PT STATES HE IS HAVING DELUSIONS. PT STATES HE IS SEEING THINGS AND IS FEELING THE URGE TO HIT HIMSELF IN THE HEAD. PT DENIES AUDITORY HALLUCINATIONS. THIS RN ASKED PT IF HE IS HAVING THOUGHTS OF HURTING OTHERS IN ADDITION TO HIMSELF. PT STATES YES. PT REQUESTING MEDICATION TO HELP WITH THESE DELUSIONS. DR. KERR AWARE AND ORDERING MEDICATIONS.
[2022-09-10] MEDS: Ziprasidone HCl 20 MG Capsule PO (22:19)
[2022-09-10] MEDS: LORazepam 1 MG Tablet PO (22:19)
[2022-09-11] VITALS (17 sets, daily range): BP systolic 119–120; BP diastolic 66–73; PULSE 66–76; RESP 14–18; O2SAT 97–98
[2022-09-11] MEDS: OLANZapine 5 MG/TAB TAB.RAPDIS 10 MG PO (11:09)
--- NOTE | 2022-09-11 11:17 | ED.RN ---
1040 THIS RN WAS CALLED INTO ROOM BY SITTER DUE TO PATIENT SLAPPING HIMSELF IN THE FACE. THIS RN VERBALLY CALMED PATIENT AND HELPED HIM REWRAP HIS ARMS IN A BLANKET TO KEEP HIM FROM SLAPPING HIMSELF. THIS RN NOTIFIED THE PHYSICIAN. PHYSICIAN PLACED NEW ORDERS
--- NOTE | 2022-09-11 11:34 | CM.ED ---
Social Work Telephone call to jordyn, Tran. This family welfare social work professor inquired about status of patient case. Tran reports that patient continues to be pending at [facility]. Tran states to also believe that patient is pending at [facility]. Tran to check with staff and have staff do follow up calls to [facility] and [facility]. Will continue to follow. Rubén ROBLERO, HANSAS
--- NOTE | 2022-09-11 14:22 | ED.RN ---
THIS RN RECEIVES A PHONE CALL FROM CRISIS WITH UPDATE FOR PT. PER CRISIS PT HAS REFERRALS PENDING AT [facility]. PT HAS BEEN ACCEPTED AT [facility], BUT THE FACILITY IS FULL AND HE IS ON A WAITING LIST FOR A BED.
--- NOTE | 2022-09-11 16:13 | CM.ED ---
Social Work Telephone call to jordyn, Tran to check status of patient case. Tran reports that patient has been accepted to [facility] but no open bed until tomorrow. Tran states that patient is also on waiting list at [facility] and plan is for crisis team to reach out to the other facilities to check on status of case. Medical team updated. Will continue to follow as needed. Rubén ROBLERO, EFREN
--- NOTE | 2022-09-11 16:50 | CM.ED ---
Social Work Telephone call from Felipa Burger. [facility] has been [facility] to [facility] all waiting on a bed to open up tomorrow. Crisis to follow up tomorrow on which facility will have an open bed first. Rubén Long MSW, EFREN
--- NOTE | 2022-09-11 18:09 | CM.ED ---
Social Work Telephone call from Felipa cobb. Felipa reports to have accepting information from [facility] with plan for nursing to call at start of shift tomorrow AM to see when transportation can be set up. Felipa reports that patient has been accepted by Dr. Henderson to [facility]. Nurse to call report to [phone], this is the same number for nursing to call to inquire about when transportation can be set up in the morning. Medical team updated. PLAN: [facility] ROBLERO, EFREN
[2022-09-11] MEDS: Acetaminophen 500 MG Tablet 1000 MG PO (18:14)
--- NOTE | 2022-09-11 20:07 | ED.RN ---
[facility] called to check placement advised he has been accepted at another hospital
--- NOTE | 2022-09-11 21:29 | ED.RN ---
patient requesting medication for anxiety order given at this time per dr. Xavier
[2022-09-11] MEDS: Ziprasidone HCl 20 MG Capsule PO (22:09)
[2022-09-12] MEDS: LORazepam 1 MG Tablet PO (00:04)
[2022-09-12] MEDS: Polyethylene Glycol 3350 17 GM PACKET PO (02:47)
[2022-09-12] MEDS: DiphenhydrAMINE 50 MG/ML Syringe IM (02:47)
[2022-09-12 02:53] VITALS: BP 124/69; PULSE 72; RESP 16; O2SAT 94
[2022-09-12 03:38] VITALS: RESP 16
[2022-09-12 05:00] VITALS: RESP 15
[2022-09-12 06:20] VITALS: RESP 14
--- NOTE | 2022-09-12 07:28 | ED.RN ---
attempted to call report. left message.
[2022-09-12 07:35] VITALS: BP 115/78; PULSE 72; RESP 14; TEMP 36.6; O2SAT 96
--- NOTE | 2022-09-12 07:53 | ED.RN ---
report called to jordin
== END 2022-09-12 08:42 ==
PROVIDERS: Emergency Provider Emergency Medicine; PCP Student in an Organized Health Care Education/Training Program; Visit Provider Emergency Medicine
DX: U07.1 COVID-19 (principal); F32.A Depression, unspecified; G47.9 Sleep disorder, unspecified; R44.3 Hallucinations, unspecified; F17.210 Nicotine dependence, cigarettes, uncomplicated; F41.9 Anxiety disorder, unspecified; E66.9 Obesity, unspecified
CPT/HCPCS: 80048; 80307; 82077; 85025; 87635; 87811; 93005; 96372; 99283; A4216; U0003; U0005

== ENCOUNTER 2022-11-07 11:09 | Emergency (ER) | payer MEDICAID, SELFPAY ==
[2022-11-07 11:14] VITALS: BP 146/93; PULSE 78; RESP 18; TEMP 36.2
--- NOTE | 2022-11-07 11:43 | EDS_ITS ---
HPI HPI - Psych History of Present Illness Chief Complaint: Mental Health Informant: patient and mental health staff (disease case manager for pt) Onset/Context/Timing Onset: Today Narrative Narrative: Patient states that today he started striking himself in the head with his hands and he is not able to control this. This occurred before, he was here in September and was placed to psychiatric facility because of it. He does not want to do this, he states it is hard for him to control. He has no thoughts of suicide does not want to harm himself at all, nor anyone else. To this end, he is in a shelter and he called someone to go to a local store and get some string so that he could restrain his arms to his legs, as he thought this would help keep him from accidentally striking himself in the head. It apparently was this and several calls to crisis that led to the recommendation that he be brought here for medical clearance and further evaluation. At this time the patient has his hands wrapped up in a blanket, he states this helps in keeping him from striking himself, and he is asking for us to place him in soft restraints so that he can have a break from the blanket. He has been compliant with the medications he is on which is hydroxyzine and gabapentin, and in addition he received an unknown injection 5 days ago for this. He has only been back in the shelter for the last 2 days. He denies using any substances or having any illness at this time. 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 Schizophrenia Home Medications NK 09/07/22 [History Last Taken Unknown] Allergy/AdvReac Type Severity Reaction Status Date / Time No Known Allergies Allergy Verified 09/06/22 13:59 Family History Mother Overdose Surgical History History of cholecystectomy History of testicular surgery Social History household members: significant other and children Smoking Status: Current every day smoker tobacco type: cigarettes alcohol intake: never substance use type: does not use ROS ROS ED Constitutional Constitutional ED: Denies chills or fever(s) Eyes Eyes: Denies change in vision or diplopia ENT ENT ED: Reports facial pain; Denies rhinorrhea or sore throat Cardiovascular Cardiovascular: Denies chest pain or palpitations Respiratory/Chest Respiratory/Chest: Denies cough or dyspnea Gastrointestinal Gastrointestinal: Denies abdominal pain, diarrhea, nausea or vomiting Genitourinary Genitourinary ED: Denies dysuria or hematuria Musculoskeletal Musculoskeletal: Denies back pain or neck pain Integumentary Denies abscess or rash Neurologic Neurologic: Reports headache(s); Denies paresthesias or weakness Psychiatric Psychiatric: Reports anxiety; Denies suicidal ideation or suicidal thoughts EXAM Physical Exam Const Vital Signs: 11/07/22 11:14 Temperature 97.2 F L Temperature Source Temporal Pulse Rate 78 Respiratory Rate 18 Blood Pressure 146/93 H Blood Pressure Mean 110 Positive well nourished and well developed General Appearance ED: well developed and NAD HEENT Reports moist mucous membranes HEENT Narrative: No facial tenderness throughout all bony prominences. No signs of trauma objectively. No dental injury, no mucosal abrasions, no malocclusion no trismus. normocephalic and atraumatic Eyes PERRL and EOMs intact bilaterally Neck full ROM and supple General: Negative for tenderness Resp normal respiratory effort and clear to auscultation bilaterally Cardio regular rate, regular rhythm and no murmurs GI non-tender and non-distended Auscultation: normoactive bowel sounds Palpation: soft Back/Spine no CVA tenderness General Back: other FROM Extremity normal to inspection General Extremety ED: Negative for edema, pulses abnormal or tenderness General Extremity: Negative for edema or pulses abnormal Neuro oriented x3, CN's II-XII intact bilaterally and no sensory deficits noted Sensorium / Orientation: awake and alert Motor Exam: strength 5/5 throughout Psych thought process normal, cooperative, affect normal, speech normal, denies hallucinations, denies homicidal ideation and denies suicidal ideation Psych Narrative: Cooperative and calm. Has his hands wrapped up in a blanket, and they are remaining still. Skin no rashes or lesions noted and no wounds MDM MDM MDM Narrative Medical decision making narrative: Patient does not have desire to harm himself, he is schizophrenic but seems to be of better mind right now. Gave him a dose of Ativan while we were medically clearing him. Labs and toxicology are noted and reviewed. He seemed to be much better after this. Social work evaluated him, they agree that he does not need to be hospitalized, patient is doing better and states he wants to try to go back to the shelter, and we discussed with him they are willing to take him back. Lab Data Attestation: I reviewed the patient's lab results. Labs: Laboratory Results - last 24 hr 11/07/22 11/07/22 11/07/22 11:54 12:35 13:40 Sodium 138 Potassium 5.0 Chloride 109 H Carbon Dioxide 19.0 L Anion Gap 10 BUN 9 Creatinine 0.71 Est GFR (MDRD) Af Amer 161 Est GFR (MDRD) Non-Af 133 BUN/Creatinine Ratio 12.7 Glucose 100 Calcium 9.2 Urine Opiates Screen NEGATIVE Urine Methadone Screen NEGATIVE Ur Barbiturates Screen NEGATIVE Ur Phencyclidine Scrn NEGATIVE Ur Amphetamines Screen NEGATIVE MDMA (Ecstasy) Screen NEGATIVE U Benzodiazepines Scrn NEGATIVE Urine Cocaine Screen NEGATIVE U Cannabinoids Screen POSITIVE H Ur Drug Screen Comment Ethyl Alcohol < 3.0 Discharge Plan Triage Chief Complaint: Mental Health ED Provider: Donnell Sorto Dx/Rx/DC Orders Clinical Impression: Injury, self-inflicted, Schizophrenia Instructions: ED Schizophrenia, General Prescriptions: No Action NK Primary Care Provider: Redd Baeza Referrals: Counseling,Center [Group of Physicians] - (As scheduled or sooner if needed) Redd Baeza, [Primary Care Provider] - Disposition Disposition: Home, Self Care
[2022-11-07] MEDS: LORazepam 2 MG/ML Syringe 1 MG IM (11:53)
[2022-11-07 12:24] LABS: Amphetamine Urine VISTA NEGATIVE (<1000 ng/mL); Barbiturate Urine VISTA NEGATIVE (< 200 ng/mL); Benzodiazepine Urine VISTA NEGATIVE (< 200 ng/mL); Cocaine Urine VISTA NEGATIVE (< 300 ng/mL); Ecstacy Urine VISTA NEGATIVE (< 500 ng/mL); Methadone Urine VISTA NEGATIVE (< 300 ng/mL); PCP Urine VISTA NEGATIVE (< 25 ng/mL); THC Urine VISTA POSITIVE (< 50 ng/mL); Vista UDS pH Range 6
[2022-11-07 13:17] LABS: Alcohol, Blood (Medical)-Serum < 3.0 mg/dL
--- NOTE | 2022-11-07 13:39 | CM.ED ---
Social Work Psychiatric Assessment Reason for Consult: SI Informants: Patient, Michael Chief Complaint: Patient states ?I was having a bad morning with hitting myself but I feel okay now?. Martial Status: Patient is single. Identified gender/ sexual orientation: male, patient declines to share sexual orientation. Living situation: Patient reports he lives in a care home with a couple other guys. ??? Supports/ Resources: Patient identified his sister and machine group leader, Neva, as his main supports. ??? History: None Education and Employment history: Patient stated that the last grade he attended was the 10th grade. Patient did not graduate high school. Patient had an IEP for reading and math. Patient reports he currently receives [facility] for mental health. ? Mental Health Treatment/ History: Patient states he currently has a shelter case manager as well as psychiatrist with [facility]. Patient reports he is on a wait list for a new counselor. ??? Triggers/ stressors: Patient explained triggers seem to ?come out of nowhere? and depend on the day. Patient reports he typically hits himself when he is stressed or is struggling to regulate. ? Coping Skills: Patient reports he enjoys tv and talking to others. ??? Abuse History: ? Patient denies emotional, physical and sexual abuse. ?? Substance Abuse Hx: Patient denies current use. ?? Risk to Self/Others: ? Suicidal: Patient reports he is not having suicidal thoughts currently. assisted patient in completing [facility] Suicide Screen, patient is low risk for suicide. Patient does report previous attempts but unable to recall when then that last occurred. Patient reports recent psychiatric hospitalizations have been due to patient being unable to control self-harming in the form of punching himself. Patient states he has no current plan nor intent to hurt himself. ? Homicidal: denied ? Violence: Patient reports he punches himself due to stress. Patient currently has a blanket on his hands but reports no desire to punch himself. Mental Status Exam: ? Orientation x4 ? Memory: fair ? Appearance:? Patient is sitting in hospital bed with a blanket around his hands. Patient reports having no current urge to punch himself and states ?I feel regulated, I could go home?. ? Mood/ affect: appropriate mood, flat affect ? Communication Pattern: responds to questions ? Thought Process: Patient denies A/VH. ? General Intellectual Functioning: below average Judgement: fair Insight: arsh HAMILTON met with patient?s shelter case manager, Nette, and introduced herself and role as [facility] SW. Nette reports she brought the patient in and has been working with him for a brief period of time. Nette reports the patient is living in a care home and was struggling with hitting himself this morning. Nette requests to be contact with disposition so she can discuss it with care home if needed. ??? JOY consulted with MD Sorto regarding concerns for patient. MD and SW in agreement with safety plan home if care home is in agreement. reports patient was given medication for anxiety and was able to walk to the restroom without the blanket on his hands without striking himself. Assessment: Patient was brought into the ED by his shelter case manager due to patient hitting himself in the head. Patient was receptive towards meeting with SW and provided SW with information needed for an assessment. Patient completed [facility] Suicide Screening and is low risk for suicide. Patient reports no current suicidal or homicidal thoughts or plans. Patient reports no current intent to end his life. Patient reports he feels regulated now and wants to return to the care home. JOY informed patient's shelter case manager, Nette, Patient will SW left VM with Neva at [facility] requesting return phone call. Plan: verbal safety plan home Nidia ROBLERO, RENE
[2022-11-07 14:08] LABS: Anion Gap 10 (5-15); BUN 9 mg/dL (7-18); BUN/Creat Ratio 12.7 RATIO (10-20); Calcium,Total 9.2 mg/dL (8.5-10.1); Chloride 109 mmol/L (98-107); Creatinine, Serum 0.71 mg/dL (0.70-1.30); EST Glomerular Filtration Rate 133 mL/min (>60); Est Glom Filt Rate - Afr Amer 161 mL/min (>60); Glucose 100 mg/dL (74-106); Sodium Level 138 mmol/L (136-145)
--- NOTE | 2022-11-07 14:14 | CM.ED ---
Addendum entered by Nidia Acuna 11/07/22 15:17: JOY was contacted by Samina with [facility] as she is the supervisor pre wave of the prison the patient is living in. Samina expressed some concerns regarding the patient not following rules at the prison and asked to speak to patient. JOY brought patient the mobile phone so he could speak with Samina. Patient was able to hold the phone and talk appropriately. JOY then spoke again with Samina and patient continued to be appropriate and not hit himself. Samina states she will contact Neva to coordinate transportation for the patient. Patient then inquired if he could smoke a cigarette. JOY explained she would inform MD patient could be discharged home and get discharge paperwork. JOY informed MD Sorto she spoke with prison staff and they are organizing transportation so patient can be discharged. RN updated. Neva contacted JOY and informed JOY she was coming to get patient and asked that the patient be outside. JOY updated patient Neva was on her way and would meet him outside. Patient reports understanding. Plan: verbal safety plan home Nidia ROBLERO, RENE Original Note: JOY Note JOY contacted Neva with prison to inquire about patient's return, Neva explained Samina, her supervisor pre wave, was going to contact this SW to discuss patient. JOY instructed to contact [facility] to reach her. JOY attempted to contact Samina at [facility] but there was no answer. OJY followed up with [facility], explaining patient is ready for discharge but JOY needed to ensure patient was able to return to the prison and discuss transportation. Marino with [facility] to contact Samina and request she contact [facility] [place]. RENE Loza
== END 2022-11-07 14:35 | disposition home or self-care (01) ==
PROVIDERS: Emergency Provider Emergency Medicine; PCP Student in an Organized Health Care Education/Training Program; Visit Provider Emergency Medicine
DX: F20.9 Schizophrenia, unspecified (principal); R45.88 Nonsuicidal self-harm; F17.210 Nicotine dependence, cigarettes, uncomplicated; R51.9 Headache, unspecified; F41.9 Anxiety disorder, unspecified
CPT/HCPCS: 80048; 80307; 82077; 96372; 99283

== ENCOUNTER 2023-01-15 11:36 | Emergency (ER) | payer MEDICAID, SELFPAY ==
[2023-01-15 11:37] VITALS: BP 128/100; PULSE 102; RESP 18; TEMP 36.6; O2SAT 99; BMI 32.1
--- NOTE | 2023-01-15 12:08 | ED.VIS.GI ---
HPI HPI - GI History of Present Illness Chief Complaint: Constipation Informant: patient Abdominal Pain/Flank Pain Onset: Days Timing: Intermittent Quality: Cramping Location: Diffuse Current Severity: Gone Maximum Severity: Mild Worsened by: Nothing Relieved by: Nothing Nausea/Vomiting/Emesis GI Symptom: Negative for Nausea or Vomiting Diarrhea/Melena/Hematochezia GI Symptom: Negative for Diarrhea, Melena or Hematochezia Associated Symptoms Associated Symptoms: Negative for Dysuria, Frequency, Hematuria or Urgency Narrative Narrative: 37-year-old male complaining constipation for a week last bowel movement was approximately Friday a week ago. Denies any nausea or vomiting. No fever or chills. No dysuria. No prior abdominal surgeries. Denies any significant pain and has had some mild cramping. Went to urgent care and referred him to the emergency department. He says he has not tried thing specifically for his constipation. He does not have a history of having constipation a lot. He denies any recent medication changes. 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 Review of Systems ROS Unobtainable: Denies due to encephalopathy Constitutional Constitutional ED: Denies chills or fever(s) ENT ENT ED: Denies ear pain Cardiovascular Cardiovascular: Denies chest pain Respiratory/Chest Respiratory/Chest: Denies cough or dyspnea Gastrointestinal Gastrointestinal: Reports constipation; Denies abdominal pain, diarrhea, melena, nausea or vomiting Genitourinary Genitourinary ED: Denies dysuria or hematuria Musculoskeletal Musculoskeletal: Denies arthralgias Integumentary Denies abscess Neurologic Neurologic: Denies headache(s) Psychiatric Psychiatric: Denies anxiety Endocrine Endocrinology: Denies polydipsia Hematologic/Lymphatic Hematologic/Lymphatic: Denies easy bleeding Allergic/Immunologic Allergic/Immunologic ED: Denies mouth swelling or tongue swelling EXAM Physical Exam Narrative Exam Narrative: Well-appearing 37-year-old male. Vital signs stable afebrile. H EENT exam unremarkable. Moist with members. Neck nontender no lymphadenopathy. Lungs clear to auscultation bilaterally. Heart regular rhythm rate about 100 no murmur. Chest wall nontender. Abdomen soft, nontender, nondistended, normal bowel sounds without peritoneal signs. No hernia or mass. No signs of obstruction. No right upper or lower quadrant tenderness. Moving all 4 extremities. Nontender no edema. Back nontender. Neurologically is awake and alert. Const Vital Signs: 01/15/23 11:37 Temperature 97.8 F Temperature Source Temporal Pulse Rate 102 H Respiratory Rate 18 Blood Pressure 128/100 H Blood Pressure Mean 109 Pulse Ox 99 Oxygen Delivery Method Room Air Positive well nourished and well developed; Negative for cachectic, contractures or unkempt General Appearance ED: well developed; Negative for unkempt, cachectic, contractures or pallor Nutritional Appearance: Negative for cachectic HEENT Reports moist mucous membranes normocephalic and atraumatic; Negative for trauma or tenderness Eyes PERRL and EOMs intact bilaterally General Eye ED: Negative for pale conjunctiva or scleral icterus Neck no lymphadenopathy, supple and no JVD General: Negative for tenderness Carotids: Negative for other Lymph Lymphatic: Negative for other Resp normal respiratory effort and clear to auscultation bilaterally Effort and Inspection: Negative for respiratory distress Auscultation: Negative for rales, rhonchi or wheezes Cardio regular rate, regular rhythm, S1 normal heart sound, S2 normal heart sound and no murmurs Rate: Negative for bradycardia or tachycardic Rhythm: Negative for abnormal rhythm GI non-tender, non-distended and no masses Inspection: Negative for abdominal distention Auscultation: normoactive bowel sounds Palpation: soft; Negative for tender, guarding, rigid, hepatomegaly, splenomegaly, hernia, mass, pulsatile mass or rebound tenderness present Back/Spine no CVA tenderness General Back: Negative for CVA tenderness Cervical Spine: Negative for cervical spine tenderness Thoracic Spine / Upper Back: Negative for thoracic spinal tenderness Lumbar Spine / Lower Back: Negative for lumbar spinal tenderness Coccyx: Negative for other Extremity full ROM General Extremety ED: Negative for edema or tenderness General Extremity: Negative for edema Neuro CN's II-XII intact bilaterally and moves all extremities Sensorium / Orientation: alert, oriented to person, oriented to place and oriented to time Motor Exam: strength 5/5 throughout Psych mental status grossly normal and thought process normal Appearance: Negative for unkempt Attitude: No agitated Mood & Affect: Negative for depressed, anxious or tearful Skin no wounds General Skin Exam: Negative for jaundice or pallor Lesions: no lesions Rashes: no rashes Trauma: Negative for abrasion Nails: Negative for discolored MDM MDM MDM Narrative Medical decision making narrative: 37-year-old male with constipation for a week. Exam benign. Abdomen completely nontender. No signs of obstruction. KUB will be obtained. He will be discharged home treated for constipation. Repeat exam at 1:25 PM patient doing well. Abdomen benign. We went over his x-ray results which is consistent with significant constipation. No bowel obstruction or ileus. Will be discharged home to use MiraLAX for his constipation. History & Record Review Discussion w/independent historian: Patient Radiography Diagnostic Testing: KUB, single view of the abdomen shows constipation throughout the entire colon and rectum. No bowel obstruction. No air-fluid levels. No significantly distended bowel. No free air. Interpreted by myself. Discharge Plan Triage Chief Complaint: Constipation ED Provider: Suhail Harrison Dx/Rx/DC Orders Clinical Impression: Constipation Instructions: ED Constipation (Adult) Prescriptions: No Action NK Primary Care Provider: Redd Baeza Referrals: Redd Baeza, [Primary Care Provider] - 3-5 Days if not improving Activity Restrictions/Additional Instructions: Plenty of fluids, fruits, vegetables and fiber along with MiraLAX for the constipation. Drink 4 to 6 ounces of MiraLAX every 1-2 hours as needed to have a large bowel movement. Follow-up with your doctor if not improving. Return if worse. Disposition Disposition: Home, Self Care
--- NOTE | 2023-01-15 12:31 | RAD_ITS ---
STUDY: X-RAY - ABDOMEN/PELVIS REASON FOR EXAM: Male, 37 years old. Constipation TECHNIQUE: Single AP view of the abdomen / pelvis. COMPARISON: None. FINDINGS: Normal visualized lung bases. There is a moderate amount of colonic fecal material. Findings suggestive of a left intrarenal calculi. Normal soft tissue structures. Normal visualized osseous structures. RAD/Abdomen Single View IMPRESSION: Moderate amount of fecal material is seen in the colon. Findings suggestive of left intrarenal calculi. Electronically Signed: Yonny Jones MD at 13:03 EDT ,
[2023-01-15] MEDS: Electrolyte Solution/Peg's 4000 ML 1000 ML PO (13:59)
== END 2023-01-15 14:01 | disposition home or self-care (01) ==
PROVIDERS: Emergency Provider Emergency Medicine; PCP Student in an Organized Health Care Education/Training Program; Visit Provider Emergency Medicine
DX: K59.00 Constipation, unspecified (principal); F17.210 Nicotine dependence, cigarettes, uncomplicated
CPT/HCPCS: 74018; 99283

== ENCOUNTER 2023-01-18 14:38 | Emergency (ER) | payer MEDICAID, SELFPAY ==
[2023-01-18 14:40] VITALS: BP 128/91; PULSE 81; RESP 14; TEMP 36; O2SAT 100; BMI 33.2
--- NOTE | 2023-01-18 15:29 | EDS_ITS ---
HPI History of Present Illness Chief Complaint: Constipation Informant: patient and spouse/S.O. Narrative Narrative: Presents for reevaluation constipation and blood in his stools. Seen 3 days ago for constipation in the ED had x-rays he states sent home with GoLytely for which he took he is also given prescription for MiraLAX which he did not fill. He states he took the GoLytely bottle 4 L only liquid came out. Today was told to try to disimpact he put his finger in his bottom and noted blood and got scared. No anticoagulation medicines. No abdominal pain. No fevers. No history of similar. Typical bowel movements daily however sometimes every other day. Denies any opiate use or prescriptions. 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 Schizophrenia Home Medications NK 09/07/22 [History Last Taken Unknown] Allergy/AdvReac Type Severity Reaction Status Date / Time No Known Allergies Allergy Verified 01/18/23 14:40 Family History Mother Overdose Surgical History History of cholecystectomy History of testicular surgery Social History household members: significant other and children Smoking Status: Current every day smoker tobacco type: cigarettes alcohol intake: never substance use type: does not use ROS ROS ED Constitutional Constitutional ED: Denies chills, fever(s) or sweats Eyes Eyes: Denies change in vision ENT ENT ED: Denies dysphagia or sore throat Cardiovascular Cardiovascular: Denies chest pain, leg edema, palpitations or racing heartbeat Respiratory/Chest Respiratory/Chest: Denies cough, dyspnea or dyspnea on exertion Gastrointestinal Gastrointestinal: Reports constipation and other Details: Rectal bleeding ; Denies abdominal pain, diarrhea, nausea or vomiting Genitourinary Genitourinary ED: Denies dysuria, hematuria or urinary frequency Musculoskeletal Musculoskeletal: Denies back pain, extremity pain or neck pain Integumentary Denies rash or wounds Neurologic Neurologic: Denies headache(s), paresthesias or weakness EXAM Physical Exam Const Vital Signs: 01/18/23 14:40 Temperature 96.8 F L Temperature Source Temporal Pulse Rate 81 Respiratory Rate 14 Blood Pressure 128/91 H Blood Pressure Mean 103 Pulse Ox 100 Oxygen Delivery Method Room Air Positive well nourished and well developed General Appearance ED: well developed and NAD HEENT Reports moist mucous membranes normocephalic and atraumatic Eyes PERRL, EOMs intact bilaterally and conjunctivae normal General Eye ED: Yes normal appearance of both eyes Neck no lymphadenopathy and supple General: Negative for tenderness Chest Wall Chest: Negative for tenderness Resp normal respiratory effort and normal air movement Effort and Inspection: symmetric chest movement; Negative for respiratory distress Cardio regular rate, regular rhythm and no murmurs Peripheral Pulses: pulses 2+ throughout GI normal to inspection, nondistended, normoactive bowel sounds and non-tender GI Narrative: Nursing present for rectal exam: No external hemorrhoids no clear fissures no gross blood. Digital rectal exam with impacted stools, disimpacted, minimal blood was noted on the stools. Palpation: Negative for guarding or rebound tenderness present Back/Spine no CVA tenderness and no thoracic nor lumbar tenderness Extremity normal to inspection General Extremety ED: Negative for edema or tenderness General Extremity: Negative for edema Neuro oriented x3 and no sensory deficits noted Sensorium / Orientation: awake and alert Skin no rashes or lesions noted and no wounds MDM MDM MDM Narrative Medical decision making narrative: Interventions / MDM: Differential diagnosis: Constipation, rectal fissures, Diagnosis considered but do not suspect: N/A My EKG interpretation: N/A Imaging independently reviewed and interpreted by myself: N/A External documents reviewed: Abdominal series x-rays from 3 days ago generalized stools there was stools in the rectum. 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 He is given GI follow-up due to rectal bleeding. Return precaution discussed. All questions were answered. Re-evaluation: stable Disposition discussed with patient/family/significant other: Patient and significant other Case discussed with consulting clinician: N/A Discharge Plan Triage Chief Complaint: Constipation Other Complaint: GI Bleed ED Provider: Blaine Rene Dx/Rx/DC Orders Clinical Impression: Constipation, Rectal bleed Instructions: Understanding Rectal Bleeding, ED Constipation (Adult) Prescriptions: No Action NK Primary Care Provider: Redd Baeza Referrals: Redd Baeza DO [Primary Care Provider] - Friend,DO Kvng [Med Staff - Active Staff] - 1-2 Weeks Activity Restrictions/Additional Instructions: You were disimpacted in the ED. Use the MiraLAX as prescribed to you at your pharmacy to help with bowel movement. There is no hemorrhoids seen. Likely fissures from constipation. Follow-up with GI for outpatient evaluation. Disposition Disposition: Home, Self Care
== END 2023-01-18 15:49 | disposition home or self-care (01) ==
PROVIDERS: Emergency Provider Emergency Medicine; PCP Student in an Organized Health Care Education/Training Program; Visit Provider Emergency Medicine
DX: K59.00 Constipation, unspecified (principal); F17.210 Nicotine dependence, cigarettes, uncomplicated; K62.5 Hemorrhage of anus and rectum
CPT/HCPCS: 90471; 99284

== ENCOUNTER 2024-01-10 15:22 | Emergency (ER) | payer MEDICAID, SELFPAY ==
[2024-01-10 15:23] VITALS: BP 126/84; PULSE 88; RESP 14; TEMP 36.1; O2SAT 100; BMI 31.0
--- NOTE | 2024-01-10 16:58 | EDS_ITS ---
HPI History of Present Illness Chief Complaint: Abscess Detail of Chief Complaint: Painful bump to posterior neck on the left side Informant: patient Onset/Context/Timing Onset: Days Context: Gradual Onset Timing: Continuous Quality: Redness and pain Location: Left posterior neck Current Severity: Mild Maximum Severity: Moderate Worsened by: Palpation Relieved by: Nothing Associated Symptoms Associated Symptoms: None Narrative Narrative: Patient is a 38-year-old male. Patient has no significant past medical history. He denies fever, chills night sweats. He is not on any immunosuppressive meds. He denies history medic fever, heart murmur or SBE. He denies respiratory or cardiac symptoms. He denies prior abscess. 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 Schizophrenia Home Medications NK 09/07/22 [History Last Taken Unknown] Allergy/AdvReac Type Severity Reaction Status Date / Time No Known Allergies Allergy Verified 01/10/24 15:23 Family History Mother Overdose Surgical History History of cholecystectomy History of testicular surgery Social History household members: significant other and children Smoking Status: Current every day smoker tobacco type: cigarettes alcohol intake: never substance use type: does not use ROS ROS ED Constitutional Constitutional ED: Denies chills, fever(s), subjective, sweats or weight loss Cardiovascular Cardiovascular: Denies chest pain Respiratory/Chest Respiratory/Chest: Denies cough, dyspnea or dyspnea on exertion Gastrointestinal Gastrointestinal: Denies nausea or vomiting Musculoskeletal Musculoskeletal: Reports neck pain; Denies arthralgias, back pain or myalgias Integumentary Reports rash Neurologic Neurologic: Denies headache(s) or paresthesias Hematologic/Lymphatic Hematologic/Lymphatic: Reports systems reviewed and no addt'l complaints, except as documented EXAM Physical Exam Const Vital Signs: 01/10/24 15:23 Temperature 96.9 F L Temperature Source Temporal Pulse Rate 88 Respiratory Rate 14 Blood Pressure 126/84 H Blood Pressure Mean 98 Pulse Ox 100 Oxygen Delivery Method Room Air Positive well nourished, well developed and obese General Appearance ED: well developed and NAD; Negative for pallor Nutritional Appearance: obese HEENT Reports moist mucous membranes HEENT Narrative: Atraumatic and normocephalic. 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 He has scars noted. This is due to prior surgery. Nares patent. Posterior pharynx normal. Patient has a small abscess size of a nickel posterior left neck. There is slight erythema. There is no warmth or induration. Eyes PERRL and EOMs intact bilaterally Neck no lymphadenopathy, supple and no JVD Neck Narrative: Documented under the HEENT portion of the medical record Resp normal respiratory effort and clear to auscultation bilaterally Cardio regular rate, regular rhythm, S1 normal heart sound, S2 normal heart sound and no murmurs Neuro oriented x3 and CN's II-XII intact bilaterally Sensorium / Orientation: alert Psych mental status grossly normal Skin no wounds and skin turgor normal General Skin Exam: elasticity normal; Negative for jaundice or pallor MDM MDM MDM Narrative Medical decision making narrative: Puncture diagnosis is subcutaneous abscess versus infected sebaceous cyst versus hematoma. Patient's been consented for I&D. Will document I&D under procedure portion of the EMR Procedures Other Procedures Procedure(s): Area was anesthetized by local filtration and field block. Incision was made using a 10 blade. Incision is 2 cm in length. There was puru lent material noted. Able to express more purulent material after blunt dissection. Then there was a cottage cheese appearing thick material noted. Patient has a large sebaceous cyst that is infected. The capsule was removed in total. There was approximately 5 cc of purulent material noted. Discharge Plan Triage Chief Complaint: Abscess ED Provider: Jose David Ramos Dx/Rx/DC Orders Clinical Impression: Infected sebaceous cyst of skin Instructions: Epidermoid Cyst Infect I and D Prescriptions: No Action NK Primary Care Provider: Redd Baeza Referrals: Redd Baeza DO [Primary Care Provider] - 2 Days for wound check Disposition Disposition: Home, Self Care
[2024-01-10] MEDS: Lidocaine 1% (20 ml mdv) 20 ML Vial INFILT (17:14)
[2024-01-10 18:36] VITALS: BP 97/79; PULSE 85; RESP 16; TEMP 36.1; O2SAT 99
== END 2024-01-10 18:38 | disposition home or self-care (01) ==
PROVIDERS: Emergency Provider Emergency Medicine; PCP Student in an Organized Health Care Education/Training Program; Visit Provider Emergency Medicine
DX: L02.11 Cutaneous abscess of neck (principal); L72.3 Sebaceous cyst; F17.210 Nicotine dependence, cigarettes, uncomplicated; E66.9 Obesity, unspecified
CPT/HCPCS: 10060; 99282

== ENCOUNTER 2024-02-04 15:24 | Emergency (ER) | payer MEDICAID, SELFPAY ==
[2024-02-04 15:25] VITALS: BP 134/96; PULSE 82; RESP 16; TEMP 36.8; O2SAT 99; BMI 29.6
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
[2024-02-04] MEDS: LORazepam 2 MG/ML Syringe 1 MG IM (16:03)
[2024-02-04] MEDS: Haloperidol Lactate 5 MG/ML Vial IM ×2 (16:03→21:22)
[2024-02-04 16:24] VITALS: BP 136/76; PULSE 64; RESP 14; O2SAT 98
[2024-02-04 16:29] LABS: Absolute Lymphocyte Count 2.58 X10^3/uL (0.83-4.51); Absolute Neutrophil Count 7.2 X10^3/uL (2.0-7.7); Basophil# 0.06 X10^3/uL; Basophil% 0.6 % (0-1); Eosinophil# 0.14 X10^3/uL; Eosinophils% 1.3 % (0-5); Hematocrit 46.3 % (40-54); Hemoglobin 15.4 g/dL (13.0-16.5); Lymphocyte # 2.58 X10^3/ul (0.83-4.51); Mean Corp Hgb Conc 33.3 g/dL (32-36); Mean Corpuscular Volume 87.2 fL (80-94); Mean Platelet Vol. 11.2 fl (6.2-12.0); Monocyte# 0.75 X10^3/uL; NRBC Flagged by Analyzer 0 % (0-5); Neutrophil # 7.15 X10^3/uL (2.7-7.7); Neutrophil % 66.6 % (47-70); Platelet Count 245 K/mm3 (150-450); RBC Distribution Width CV 13.3 % (11.6-14.6); RBC Distribution Width SD 42.5 fl (35.1-43.9); Red Blood Count 5.31 M/mm3 (4.6-6.2); White Blood Count 10.7 K/mm3 (4.4-11.0)
[2024-02-04 16:38] LABS: Alcohol, Blood (Medical)-Serum < 3.0 mg/dL
[2024-02-04 16:42] LABS: Anion Gap 6 (5-15); BUN 10 mg/dL (7-18); BUN/Creat Ratio 10.1 RATIO (10-20); Calcium,Total 9.5 mg/dL (8.5-10.1); Chloride 108 mmol/L (98-107); Creatinine, Serum 0.99 mg/dL (0.70-1.30); EST Glomerular Filtration Rate 89 mL/min (>60); Est Glom Filt Rate - Afr Amer 108 mL/min (>60); Estimated Creatinine Clearance 119.84 ml/min; Glucose 97 mg/dL (74-106); Potassium 3.9 mmol/L (3.5-5.1); Sodium Level 136 mmol/L (136-145)
[2024-02-04 16:52] LABS: Amphetamine Urine VISTA NEGATIVE (<1000 ng/mL); Barbiturate Urine VISTA NEGATIVE (< 200 ng/mL); Benzodiazepine Urine VISTA NEGATIVE (< 200 ng/mL); Cocaine Urine VISTA NEGATIVE (< 300 ng/mL); Ecstacy Urine VISTA POSITIVE (< 500 ng/mL); Methadone Urine VISTA NEGATIVE (< 300 ng/mL); PCP Urine VISTA NEGATIVE (< 25 ng/mL); THC Urine VISTA NEGATIVE (< 50 ng/mL); Vista UDS pH Range 6
--- NOTE | 2024-02-04 17:05 | ED.RN ---
MEDICALLY CLEARED, CHART FAXED TO CRISIS. CRISIS CALLED.
--- NOTE | 2024-02-04 17:52 | ED.RN ---
PER TOMAS FROM [facility], PT REFERRED TO [facility]
[2024-02-04] MEDS: Ibuprofen 600 MG Tablet PO (19:02)
--- NOTE | 2024-02-04 19:11 | ED.RN ---
PT. OUT OF RESTRAINTS AT 1900. [facility] SAID THEY WILL REVALUATE AFTER 4HRS. THIS RN QUESTIONED SINCE PT WAS VOLUNTARILY PLACED IN SOFT RESTRAINTS, THEY SAID YES.
[2024-02-04 21:10] VITALS: BP 108/72; PULSE 89; RESP 16; O2SAT 94
[2024-02-04] MEDS: LORazepam 1 MG Tablet PO (21:22)
--- NOTE | 2024-02-04 22:49 | EKG12_ITS ---
Test Reason : [facility] Blood Pressure : / mmHG Vent. Rate : 079 BPM Atrial Rate : 079 BPM P-R Int : 178 ms QRS Dur : 084 ms QT Int : 380 ms P-R-T Axes : 033 -17 028 degrees QTc Int : 435 ms Normal sinus rhythm Minimal voltage criteria for LVH, may be normal variant ( R in aVL ) Borderline ECG Confirmed by Esequiel Johnston ([id number]), art editor DAMASO HIGGINS ([id number]) on 02/09/2024 1:22:14 PM Referred By: Confirmed By:Esequiel Johnston
--- NOTE | 2024-02-05 03:45 | ED.RN ---
Report called to [facility], questions/concerns answered
[2024-02-05 05:11] VITALS: BP 102/62; PULSE 70; RESP 16; O2SAT 98
[2024-02-05 09:11] VITALS: BP 129/84; PULSE 72; RESP 15; TEMP 36.4; O2SAT 99
== END 2024-02-05 09:14 ==
PROVIDERS: Emergency Provider Emergency Medicine; PCP Student in an Organized Health Care Education/Training Program; Visit Provider Emergency Medicine
DX: R45.851 Suicidal ideations (principal); F29 Unspecified psychosis not due to a substance or known physiological condition; R45.1 Restlessness and agitation; F17.210 Nicotine dependence, cigarettes, uncomplicated; F32.A Depression, unspecified
CPT/HCPCS: 36415; 80048; 80307; 80320; 85025; 93005; 96372; 99284; G0480

== ENCOUNTER 2024-03-18 16:04 | Emergency (ER) | payer MEDICAID, SELFPAY ==
[2024-03-18 16:05] VITALS: BP 120/85; PULSE 78; RESP 16; TEMP 36.2; O2SAT 98; BMI 31.4
--- NOTE | 2024-03-18 17:35 | EX.ED.GUMALE ---
HPI History of Present Illness Chief Complaint: Male Pain/Injury Narrative Narrative: 38-year-old male states that for the last week and a half he has had left testicular pain. He has been seen by his primary care provider and referred to urology, and was put on Tylenol 3. He denies any exacerbating or alleviating factors. He does relate history that maybe 2 years ago he had urological surgery, but does not remember what it was for. A week ago to a week and a half ago he began having sharp, stabbing pain in the posterior aspect of his left testicle. He denies any fever or chills, no nausea or vomiting, no dysuria or hematuria. 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 HEENT: No sore throat. No neck pain. No loss of vision. No rhinorrhea. Cardiovascular: No chest pain. No palpitations. No pedal edema. Respiratory: No cough, no shortness of breath. Abdominal: No abdominal pain. No nausea. No vomiting. Genitourinary: No dysuria. No hematuria. Left testicular pain for a week and a half. Musculoskeletal: No myalgias. No arthralgias. Neurologic: No headaches. No dizziness. No lightheadedness. Skin: No rash. No change in color. Psychiatric: No depression. No anxiety. EXAM Physical Exam Narrative Exam Narrative: Afebrile. Vital signs noted. Regular rate and rhythm. Lungs clear to auscultation bilaterally. Abdomen soft nontender with normal active bowel sounds. Chaperoned genital examination reveals mild tenderness to palpation in the epididymal area of the left testicle. No palpated inguinal hernia. No diffuse testicular tenderness. Lie appears normal. Const Vital Signs: 03/18/24 16:05 Temperature 97.2 F L Temperature Source Temporal Pulse Rate 78 Respiratory Rate 16 Blood Pressure 120/85 H Blood Pressure Mean 96 Pulse Ox 98 Oxygen Delivery Method Room Air MDM MDM MDM Narrative Medical decision making narrative: In the differential diagnosis is epididymitis versus testicular torsion versus orchitis. In discussion with the patient, when I discussed with him that I wanted to order an ultrasound and urinalysis, he did not want a wait. He states he already has a follow-up appointment with the urologist in about a week or longer. He was told of the risk of torsion and loss of testicle, permanent disability, and and acknowledges an understanding. I feel he has the capacity to sign out AGAINST MEDICAL ADVICE. He states he ran out of his Tylenol 3. I will give him 1 dose here, but I am uncomfortable writing him a narcotic pain medication when he is not agreeable to any workup. He was told that he can return to the emergency department at any time. He will follow-up with his primary care provider and his urologist. Disposition is signed out AGAINST MEDICAL ADVICE. He was in stable condition. Discharge Plan Triage Chief Complaint: Male Pain/Injury ED Provider: Josh Rosales Dx/Rx/DC Orders Clinical Impression: Left testicular pain, Left against medical advice Instructions: ED Testicular Pain, Unclear Cause Prescriptions: No Action NK Primary Care Provider: Redd Baeza Referrals: Redd Baeza DO [Primary Care Provider] - Print Language: [place] Disposition Disposition: Against Medical Advice Discharge Date/Time: 03/18/24 17:42
[2024-03-18] MEDS: Acetaminophen/Codeine #3 Tablet 1 TABLET PO (17:38)
== END 2024-03-18 17:42 | disposition left against medical advice (07) ==
LOC: ED 17:36
PROVIDERS: Emergency Provider Emergency Medicine; PCP Student in an Organized Health Care Education/Training Program; Visit Provider Emergency Medicine
DX: N50.812 Left testicular pain (principal); Z53.29 Procedure and treatment not carried out because of patient's decision for other reasons; F17.210 Nicotine dependence, cigarettes, uncomplicated
CPT/HCPCS: 99282